=== PATIENT | female | born 1980 | race Caucasian/White ===

== ENCOUNTER 2016-11-13 23:30 | Inpatient (IN) | payer OTHER ==
--- NOTE | 2016-11-13 23:47 | ED PDOC ---
Arrival/HPI - General Time Seen by Provider: 11/13/16 23:38 Historian: Patient - History of Present Illness Narrative History of Present Illness (Text): 11/13/16 23:47 Fadumo Rausch is a 36 year old female, whose past medical history includes cholecystectomy and , who presents to the Emergency department complaining of epigastric pain for 1 hour. Patient notes associated nausea, vomiting, and headache Patient reports she had shrimp, fried rice, and chicken tenders earlier tonight. Patient denies any fever, chills, chest pain, shortness of breath, urinary symptoms, back pain, neck pain, dizziness, or any other complaints. Time/Duration: 1 hour Symptom Course: Unchanged Activities at Onset: Rest, Light Context: Home Past Medical History - Provider Review Nursing Documentation Reviewed: Yes - Infectious Disease Hx of Infectious Diseases: None - Cardiac Hx Hypertension: Yes - Pulmonary Hx Asthma: Yes - Neurological Hx Neurological Disorder: No - HEENT Hx HEENT Disorder: No - Renal Hx Renal Disorder: No - Endocrine/Metabolic Hx Endocrine Disorders: No - Hematological/Oncological Hx Blood Disorders: No - Integumentary Hx Dermatological Disorder: No - Musculoskeletal/Rheumatological Hx Falls: No - Gastrointestinal Hx Gastrointestinal Disorders: No - Genitourinary/Gynecological Hx Genitourinary Disorders: No - Psychiatric Hx Psychophysiologic Disorder: No Hx Anxiety: No Hx Bipolar Disorder: No Hx Depression: No Hx Emotional Abuse: No Hx Hallucinations: No Hx Panic Disorder: No Hx Post Traumatic Stress Disorder: No Hx Psychosis: No Hx Physical Abuse: No Hx Schizophrenia: No Hx Sexual Abuse: No Hx Substance Use: No - Surgical History Hx Section: Yes Hx Cholecystectomy: Yes - Anesthesia Hx Anesthesia: Yes Hx Anesthesia Reactions: No Hx Malignant Hyperthermia: No Family/Social History - Physician Review Nursing Documentation Reviewed: Yes Family/Social History: Unknown Family HX Smoking Status: Never Smoked Hx Alcohol Use: No Hx Substance Use: No Allergies/Home Meds Allergies/Adverse Reactions: Allergies iodine Allergy (Verified 11/13/16 23:47) ANAPHYLAXIS Home Medications: Home Meds Medication Instructions Recorded Confirmed Albuterol Sulfate [Proventil Hfa] 0.09 mg IH PRN PRN 05/18/15 11/13/16 Review of Systems - Physician Review All systems were reviewed & negative as marked: Yes - Review of Systems Constitutional: Normal. absent: Fevers Eyes: Normal ENT: Normal Respiratory: Normal. absent: SOB, Cough Cardiovascular: Normal. absent: Chest Pain Gastrointestinal: Abdominal Pain, Nausea, Vomiting Genitourinary Female: Normal. absent: Dysuria, Frequency, Hematuria, Urine Output Changes Musculoskeletal: Normal. absent: Back Pain, Neck Pain Skin: Normal Neurological: Headache. absent: Dizziness Endocrine: Normal Hemo/Lymphatic: Normal Psychiatric: Normal Physical Exam Vital Signs Reviewed: Yes Vital Signs Temp Pulse Resp BP Pulse Ox 11/14/16 04:44 73 18 117/72 98 11/14/16 03:00 84 16 119/67 98 11/14/16 01:30 71 16 127/70 98 11/13/16 23:30 99.3 F 80 20 134/82 99 Temperature: Afebrile Blood Pressure: Normal Pulse: Regular Respiratory Rate: Normal Appearance: Positive for: Well-Appearing, Non-Toxic, Comfortable Pain Distress: None Mental Status: Positive for: Alert and Oriented X 3 - Systems Exam Head: Present: Atraumatic, Normocephalic Pupils: Present: PERRL Extroacular Muscles: Present: EOMI Conjunctiva: Present: Normal Mouth: Present: Moist Mucous Membranes Neck: Present: Normal Range of Motion Respiratory/Chest: Present: Clear to Auscultation, Good Air Exchange. No: Respiratory Distress, Accessory Muscle Use Cardiovascular: Present: Regular Rate and Rhythm, Normal S1, S2. No: Murmurs Abdomen: Present: Tenderness (Epigastric tenderness), Normal Bowel Sounds. No: Distention, Peritoneal Signs Back: Present: Normal Inspection Upper Extremity: Present: Normal Inspection. No: Cyanosis, Edema Lower Extremity: Present: Normal Inspection. No: Edema Neurological: Present: GCS=15, CN II-XII Intact, Speech Normal Skin: Present: Warm, Dry, Normal Color. No: Rashes Psychiatric: Present: Alert, Oriented x 3, Normal Insight, Normal Concentration Medical Decision Making ED Course and Treatment: 11/13/16 23:47 Impression: 36 year old female complaining of epigastric pain, nausea, vomiting, and headache for 1 hour. Plan: -- Labs, lipase -- Urinalysis -- IV fluids -- Zofran -- Pepcid -- Toradol -- Reassess and disposition Prior Visits: Notes and results from previous visits were reviewed. On 07/03/2016, pt was seen in the Emergency department for fever, sore throat, and body aches. Pt was d/c home. Progress Notes: 11/14/16 05:03 Reviewed radiology, CT Abdomen and Pelvis shows: Possible right ovarian cyst. 11/14/16 05:13 Case discussed with biomedical equipment specialist, who is aware and agrees with plan. 11/14/16 05:[address] Sina Myers, who is aware and agrees with plan. Accepts pt in to hospitalist service. Pt will go to [facility] observation for intractable abdominal pain. - Lab Interpretations Lab Results: 11/13/16 23:50 11/13/16 23:50 Lab Results 11/13/16 23:50: WBC 7.0, RBC 5.13, Hgb 11.8 L, Hct 38.4, MCV 74.9 L, MCH 23.0 L , MCHC 30.7 L, RDW 16.8 H, Plt Count 122 11/13/16 23:50: Sodium 138, Potassium 3.8, Chloride 103, Carbon Dioxide 24, Anion Gap 15, BUN 13, Creatinine 0.7, Est GFR ( Amer) > 60, Est GFR (Non- Af Amer) > 60, Random Glucose 103, Calcium 8.5, Total Bilirubin 0.6, AST 22, ALT 21, Alkaline Phosphatase 64, Total Protein 6.8, Albumin 4.0, Globulin 2.9, Albumin/Globulin Ratio 1.4, Lipase 41 11/13/16 23:50: Urine Color Yellow, Urine Appearance Cloudy, Urine pH 6.0, Ur Specific [place] >= 1.030, Urine Protein 100 H, Urine Glucose (UA) Negative, Urine Ketones Negative, Urine Blood Trace-intact H, Urine Nitrate Negative, Urine Bilirubin Negative, Urine Urobilinogen 1.0 H, Ur Leukocyte Esterase Negative, Urine RBC 0 - 2, Urine WBC 0 - 2, Ur Epithelial Cells 6 - 8, Urine Bacteria Small, Urine HCG, Qual Negative I have reviewed the lab results: Yes - RAD Interpretation Narrative RAD Interpretations (Text): CT Abdomen and Pelvis shows: Cholecystectomy clips are present. The liver, spleen, and pancreas appear grossly normal on this non-contrast study. No perinephric stranding. No hydronephrosis. No obstructing calculi. Pelvic phleboliths are present. The bowel appears grossly normal. The appendix is not identified however there are no secondary signs of appendicitis such as pericecal stranding. Bilateral ovarian follicles with possible right ovarian cyst. Evaluation limited on this study. Ultrasound if clinically indicated. There is a small amount of free fluid in the pelvis. IMPRESSION: Possible right ovarian cyst. Radiology Orders: 11/14/16 03:51 ABD & PELVIS W/O PO OR IV CONT [CT] Stat Slackman: Radiologist - Medication Orders Current Medication Orders: Discontinued Medications Famotidine (Pepcid) 20 mg IVP STAT STA Stop: 11/13/16 23:49 Last Admin: 11/14/16 00:00 Dose: 20 mg Hydromorphone HCl (Dilaudid) 1 mg IVP STAT STA Stop: 11/14/16 03:52 Last Admin: 11/14/16 04:30 Dose: 1 mg Sodium Chloride (Sodium Chloride 0.9%) 1,000 mls @ 999 mls/hr IV .Q1H1M STA Stop: 11/14/16 00:48 Last Admin: 11/14/16 00:00 Dose: 999 mls/hr Ketorolac Tromethamine (Toradol) 30 mg IVP ONCE ONE Stop: 11/13/16 23:49 Last Admin: 11/14/16 00:00 Dose: 30 mg Morphine Sulfate (Morphine) 2 mg IVP STAT STA Stop: 11/14/16 02:14 Last Admin: 11/14/16 02:27 Dose: 2 mg Ondansetron HCl (Zofran Inj) 4 mg IVP ONCE ONE Stop: 11/13/16 23:49 Last Admin: 11/14/16 00:00 Dose: 4 mg Ondansetron HCl (Zofran Inj) 4 mg IVP ONCE ONE Stop: 11/14/16 03:52 Last Admin: 11/14/16 04:30 Dose: 4 mg - Scribe Statement The provider has reviewed the documentation as recorded by the Jaren Dean Provider Scribe Attestation: All medical record entries made by the N[place]tapan were at my direction and personally dictated by me. I have reviewed the chart and agree that the record accurately reflects my personal performance of the history, physical exam, medical decision making, and the department course for this patient. I have also personally directed, reviewed, and agree with the discharge instructions and disposition. Disposition/Present on Arrival - Present on Arrival Any Indicators Present on Arrival: No History of DVT/PE: No History of Uncontrolled Diabetes: No Urinary Catheter: No History Surgical Site Infection Following: None - Disposition Have Diagnosis and Disposition been Completed?: Yes Diagnosis: Intractable abdominal pain Disposition: HOSPITALIZED Disposition Time: 05:11 Patient Plan: Observation Patient Problems: Current Active Problems Problem Status Onset Intractable abdominal pain Acute Condition: STABLE
[2016-11-13] MEDS ORDERED: Sodium Chloride 0.9% 1,000 ML IV STA (23:48)
[2016-11-14 00:33] LABS: HEMOGLOBIN 11.8 gm/dL (12.0-16.0); MEAN CELL VOLUME 74.9 fL (80.0-105.0); MEAN CORPUSCULAR HGB CONC 30.7 g/dl (31.0-37.0); PLATELET COUNT 122 10^3/uL (120.0-450.0); RBC 5.13 10^6/uL (3.5-6.1); RED CELL DISTRIBUTION WIDTH 16.8 % (11.5-14.5)
[2016-11-14 00:35] LABS: URINE BILIRUBIN NEGATIVE (NEGATIVE); URINE BLOOD TRACE-INTACT (NEGATIVE); URINE GLUCOSE (UA) NEGATIVE (NEGATIVE); URINE LEUKOCYTE ESTERASE NEGATIVE Leu/uL (NEGATIVE); URINE NITRATE NEGATIVE (NEGATIVE); URINE PROTEIN 100 mg/dL (<30 mg/dL)
[2016-11-14 00:36] LABS: URINE APPEARANCE CLOUDY (CLEAR); URINE COLOR YELLOW (YELLOW)
[2016-11-14 00:39] LABS: ALB/GLOB RATIO 1.4 (1.1-1.8); ALT/SGPT 21 U/L (7-56); AST/SGOT 22 U/L (15-39); BLOOD UREA NITROGEN 13 mg/dL (7-21); CALCIUM 8.5 mg/dL (8.4-10.5); GFR AFRICAN-AMERICAN > 60; GFR NON-AFRICAN AMERICAN > 60; LIPASE 41 U/L (23-300)
[2016-11-14 00:41] LABS: HCG,QUALITATIVE URINE NEGATIVE (NEGATIVE)
[2016-11-14 00:44] LABS: URINE BACTERIA SMALL (NEG); URINE RBC 0 - 2 /hpf (0-2); URINE WBC 0 - 2 /hpf (0-6)
[2016-11-14] MEDS ORDERED: Morphine 2 mg/ml ISec IVP STA (02:13)
[2016-11-14] MEDS ORDERED: HYDROmorphone 1 mg/ml ISec IVP STA (03:51)
--- NOTE | 2016-11-14 05:01 | CT ---
EXAM: CT Abdomen and Pelvis Without Intravenous Contrast CLINICAL HISTORY: 36 years old, female; Pain; Abdominal pain; Localized; Upper; Prior surgery; Additional info: Mid/upper abdominal pain TECHNIQUE: Axial computed tomography images of the abdomen and pelvis without intravenous contrast. This CT exam was performed using one or more of the following dose reduction techniques: automated exposure control, adjustment of the mA and/or kV according to patient size, and/or use of iterative reconstruction technique. Coronal and sagittal reformatted images were created and reviewed. EXAM DATE/TIME: 11/14/2016 3:51 AM COMPARISON: No relevant prior studies available. FINDINGS: Cholecystectomy clips are present. The liver, spleen, and pancreas appear grossly normal on this non-contrast study. No perinephric stranding. No hydronephrosis. No obstructing calculi. Pelvic phleboliths are present. The bowel appears grossly normal. The appendix is not identified however there are no secondary signs of appendicitis such as pericecal stranding. Bilateral ovarian follicles with possible right ovarian cyst. Evaluation limited on this study. Ultrasound if clinically indicated. There is a small amount of free fluid in the pelvis. IMPRESSION: Possible right ovarian cyst.
[2016-11-14] MEDS ORDERED: Albuterol-Ipratrop 3 mg / 0.5 (3 ml) UD IH PRN (05:59)
--- NOTE | 2016-11-14 06:21 | CP.PCM.HP ---
History of Present Illness - History of Present Illness History of Present Illness: Pt is a 36 yo F with a PMHx of asthma, HTN, HLD, and fibroids presents with cc of nausea, vomiting, and abdominal pain. Pt states that one day ago she got sunburned and has felt dehydrated since then. Pt then states around 9:30 pm on Monday pt had nausea and vomited multiple times. Pt also reports epigastric abdominal pain. Pt's last meal was [employer] food around 11:30 am on the same day as she has had no appetite and has not been able to keep anything down. Pt states that the nausea, abdominal pain, and chills have been constant since onset. Pt tried motrin but it provided no relief. Pt denies any aggravating factors. Pt also reports ARELLANO. Pt denies CP, SOB, and fevers. PMHx: asthma, HTN, HLD, fibroids/cysts Surg: cholecystectomy, FHx: DM, HTN, HLD, breast, ovarian, and colon cancer All: Iodine SH: denies tob, EtOH, or illicit drug use Medications: reviewed and as per chart Present on Admission - Present on Admission Any Indicators Present on Admission: No Review of Systems - Constitutional Constitutional: Chills, Fatigue, Headache, Weakness. absent: Night Sweats, Weight Gain, Weight Loss - EENT Eyes: absent: Blurred Vision, Change in Vision, Dry Eye, Pain Ears: absent: Ear Discharge, Ear Pain, Tinnitus Nose/Mouth/Throat: absent: Nasal Congestion, Nasal Discharge, Nasal Trauma - Cardiovascular Cardiovascular: absent: Chest Pain, Diaphoresis, Dyspnea, Edema, Leg Edema, Orthopnea - Respiratory Respiratory: absent: Cough, Dyspnea, Hemoptysis, Wheezing - Gastrointestinal Gastrointestinal: Abdominal Pain, Vomiting. absent: Constipation, Diarrhea, Hematemesis, Hematochezia - Genitourinary Genitourinary: absent: Dysuria, Hematuria, Pyuria, Nocturia - Musculoskeletal Musculoskeletal: absent: Abnormal Gait, Arthralgias, Atrophy, Joint Swelling - Integumentary Integumentary: absent: Pruritus, Rash, Skin Ulcer, Sores, Swelling - Neurological Neurological: Headaches. absent: Abnormal Gait, Abnormal Hearing, Numbness - Endocrine Endocrine: absent: Cold Intolorance, Heat Intolorance, Polydipsia, Polyphagia Past Patient History - Infectious Disease Hx of Infectious Diseases: None - Past Social History Smoking Status: Never Smoked - CARDIAC Hx Hypertension: Yes - PULMONARY Hx Asthma: Yes - NEUROLOGICAL Hx Neurological Disorder: No - HEENT Hx HEENT Problems: No - RENAL Hx Chronic Kidney Disease: No - ENDOCRINE/METABOLIC Hx Endocrine Disorders: No - HEMATOLOGICAL/ONCOLOGICAL Hx Blood Disorders: No - INTEGUMENTARY Hx Dermatological Problems: No - MUSCULOSKELETAL/RHEUMATOLOGICAL Hx Falls: No - GASTROINTESTINAL Hx Gastrointestinal Disorders: No - GENITOURINARY/GYNECOLOGICAL Hx Genitourinary Disorders: No - PSYCHIATRIC Hx Psychophysiologic Disorder: No Hx Anxiety: No Hx Bipolar Disorder: No Hx Depression: No Hx Emotional Abuse: No Hx Hallucinations: No Hx Panic Symptoms: No Hx Post Traumatic Stress Disorder: No Hx Psychosis: No Hx Physical Abuse: No Hx Schizophrenia: No Hx Sexual Abuse: No Hx Substance Use: No - SURGICAL HISTORY Hx Section: Yes Hx Cholecystectomy: Yes - ANESTHESIA Hx Anesthesia: Yes Hx Anesthesia Reactions: No Hx Malignant Hyperthermia: No Meds Allergies/Adverse Reactions: Allergies Allergy/AdvReac Type Severity Reaction Status Date / Time iodine Allergy ANAPHYLAXIS Verified 11/13/16 23:47 Physical Exam - Constitutional Appears: No Acute Distress - Head Exam Head Exam: ATRAUMATIC, NORMOCEPHALIC - Eye Exam Eye Exam: EOMI, PERRL. absent: Conjunctival injection - ENT Exam ENT Exam: Mucous Membranes Dry - Neck Exam Neck exam: Positive for: Full Rom. Negative for: Lymphadenopathy, Tenderness, Thyromegaly - Respiratory Exam Respiratory Exam: Clear to Auscultation Bilateral. absent: Rales, Rhonchi, Wheezes - Cardiovascular Exam Cardiovascular Exam: RRR, +S1, +S2. absent: Diastolic murmur, Gallop, Rubs, Systolic Murmur - GI/Abdominal Exam GI & Abdominal Exam: Guarding, Hyperactive Bowel Sounds, Soft. absent: Distended, Tenderness - Extremities Exam Extremities exam: Positive for: full ROM. Negative for: joint swelling, pedal edema, tenderness - Neurological Exam Neurological exam: Alert, CN II-XII Intact, Oriented x3 - Psychiatric Exam Psychiatric exam: Normal Affect - Skin Skin Exam: Dry, Intact, Normal Color, Warm Results - Vital Signs Recent Vital Signs: Last Vital Signs Temp 99.3 F 11/13/16 23:30 Pulse 73 11/14/16 05:58 Resp 16 11/14/16 05:58 BP 105/50 L 11/14/16 05:58 Pulse Ox 98 11/14/16 05:58 - Labs Result Diagrams: 11/13/16 23:50 11/13/16 23:50 Assessment & Plan - Assessment and Plan (Free Text) Assessment: 36 yo F with a PMHx of ashtma, HTN, HLD, and fibroids will be admitted for evaluation and treatment of gastroenteritis. 1. Gastroenteritis -IVF NS -CT Exam showed no perinephric stranding, cholecystectomy clips, pelvic phleboliths, bilateral ovarian follicles, possible right ovarin cyst, small amount of free fluid in pelvix -Zofran 4q6 prn nausea -Morphine for pain -NPO, increase diet as gadiel -Trend daily labs 2. Asthma -Duoneb q2h prn 3. GI/PPx -Protonix -SCDs Pt was seen and discussed in detail with Dr. Myers.
[2016-11-14] MEDS: Sodium Chloride 0.9% 100 ML IV SCH ×2 (06:40→13:04)
[2016-11-14 07:02] VITALS: BMI 38.9
[2016-11-14] MEDS ORDERED: Pneumococcal 23-Valent Vaccine IM ONE (07:02)
[2016-11-14] MEDS: Morphine 2 mg/ml ISec IVP PRN (07:54)
[2016-11-14] MEDS: Oxycodone/Acetaminophen 5/325 mg Tab PO PRN ×2 (17:57→21:51)
[2016-11-15] MEDS: Sodium Chloride 0.9% 100 ML IV SCH ×4 (02:49→19:00)
[2016-11-15] MEDS: Oxycodone/Acetaminophen 5/325 mg Tab PO PRN ×3 (02:51→15:35)
[2016-11-15 07:15] LABS: HEMOGLOBIN 9.9 gm/dL (12.0-16.0); MEAN CELL VOLUME 75.7 fL (80.0-105.0); MEAN CORPUSCULAR HEMOGLOBIN 22.3 pg (25.0-35.0); MEAN CORPUSCULAR HGB CONC 29.5 g/dl (31.0-37.0); RBC 4.44 10^6/uL (3.5-6.1); WHITE BLOOD COUNT 3.1 10^3/ul (4.5-11.0)
[2016-11-15 07:24] LABS: ALB/GLOB RATIO 1.3 (1.1-1.8); ALBUMIN 3.1 g/dL (3.0-4.8); ALT/SGPT 40 U/L (7-56); AST/SGOT 27 U/L (15-39); BLOOD UREA NITROGEN 6 mg/dL (7-21); GFR AFRICAN-AMERICAN > 60; GFR NON-AFRICAN AMERICAN > 60
--- NOTE | 2016-11-15 09:46 | CON ---
DATE: 11/15/2016 HISTORY OF PRESENT ILLNESS: I saw Ms. Rausch this morning. She is a 36-year-old female with past medical history of cholecystectomy and with complaints of acute onset epigastric pain that several prior to admission. She related onset of symptoms several hours after eating meal consisting of shrimp, rice and chicken. Currently no one else affected after eating the same meal. Earlier in the day and previously, the patient had no complaints. She denied any hematemesis or rectal bleeding. The patient has had problem with acid reflux periodically and also periodic epigastric discomfort. She does not practice antireflux precautions. She eats and drinks before she goes to sleep. At the current time point at the bedside, the patient complained about epigastric discomfort, also pain in the periumbilical area, as well as in all quadrants bilaterally, which is mild. PHYSICAL EXAMINATION: VITAL SIGNS: I reviewed this patient's vital signs. HEENT: Noncontributory. LUNGS: Clear to auscultation. HEART: Regular rate and rhythm. ABDOMEN: Significant for being tender in the epigastric area. Mild tenderness towards periumbilical as well as in the area of the right and left lower quadrants. LABORATORY DATA: I reviewed this patient's laboratory data, which includes H and H of 11.8/38. Chemistry is noncontributory. During the negative. Abdomen and pelvis CT images were reviewed as well as report, note that it appeared noncontributory as well as biliary tract, there is a small amount of food in the pelvis and cul-de-sac. ASSESSMENT AND PLAN: This is a 36-year-old female with complaints of epigastric pain as well as periumbilical and lower quadrant discomfort. I think based on the acute onset of her symptoms, most likely some degree of gastroenteritis lower quadrant discomfort could be attributed to fluid in the cul-de-sac. I note that she just had her period several days before admission. Review of the orders indicated analgesics plus proton inhibitor therapy and antiemetics which is adequate at the current time point.
[2016-11-15] MEDS: Morphine 2 mg/ml ISec IVP PRN ×3 (11:57→22:59)
[2016-11-15 16:34] LABS: HEPATITIS B SURFACE AG NEGATIVE (NEGATIVE)
[2016-11-15 16:39] LABS: HEPATITIS A IGM NEGATIVE (NEGATIVE); HEPATITIS B CORE AB NEGATIVE (NEGATIVE)
[2016-11-15 16:51] LABS: HEPATITIS C ANTIBODY NEGATIVE (NEGATIVE)
--- NOTE | 2016-11-15 19:43 | CP.PCM.PN ---
<FAVIOLA NOWAK - Last Filed: 11/15/16 19:34> Subjective - Date & Time of Evaluation Date of Evaluation: 11/15/16 Time of Evaluation: 09:45 - Subjective Subjective: Medicine Progress Note: Pt seen and assessed at bedside. Pt reports that her nausea and epigastric pain have lessened in intensity with medication therapy but notes that these issues are not resolved. She has no other complaints at this time. Pt denies headache, fever, changes in vision, dizziness, shortness of breath, chest pain, palpitations, dysphagia, vomiting, constipation, diarrhea or any numbness/ tingling/weakness of any extremity. Objective - Vital Signs/Intake and Output Vital Signs (last 24 hours): Temp Pulse Resp BP Pulse Ox 98.6 F 78 18 125/68 98 11/15/16 16:00 11/15/16 16:00 11/15/16 16:00 11/15/16 16:00 11/15/16 16:00 Intake and Output: 11/15/16 11/16/16 18:59 06:59 Intake Total 120 Balance 120 - Medications Medications: Current Medications Acetaminophen (Tylenol 325mg Tab) 650 mg PO Q4H PRN PRN Reason: Pain, severe (8-10) Last Admin: 11/14/16 15:59 Dose: 650 mg Famotidine (Pepcid) 20 mg IVP BID [facility] Last Admin: 11/15/16 18:00 Dose: 20 mg Sodium Chloride (Sodium Chloride 0.9%) 100 mls @ 100 mls/hr IV .Q1H [facility] Last Admin: 11/15/16 19:00 Dose: 100 mls/hr Morphine Sulfate (Morphine) 2 mg IVP Q4 PRN PRN Reason: Pain, moderate (4-7) Last Admin: 11/15/16 18:15 Dose: 2 mg Ondansetron HCl (Zofran Inj) 4 mg IVP Q6H PRN PRN Reason: Nausea/Vomiting Last Admin: 11/15/16 15:46 Dose: 4 mg Oxycodone/Acetaminophen (Percocet 5/325 Mg Tab) 1 tab PO Q4H PRN PRN Reason: Pain, severe (8-10) Stop: 11/17/16 17:38 Last Admin: 11/15/16 15:35 Dose: 1 tab - Labs Labs: 11/15/16 07:00 11/15/16 07:00 - Constitutional Appears: No Acute Distress - Head Exam Head Exam: NORMAL INSPECTION, NORMOCEPHALIC - Eye Exam Eye Exam: EOMI, Normal appearance - ENT Exam ENT Exam: Mucous Membranes Moist, Normal Exam - Neck Exam Neck Exam: Full ROM - Respiratory Exam Respiratory Exam: Clear to Ausculation Bilateral, NORMAL BREATHING PATTERN. absent: Rales, Rhonchi, Wheezes, Respiratory Distress - Cardiovascular Exam Cardiovascular Exam: REGULAR RHYTHM, RRR, +S1, +S2 - GI/Abdominal Exam GI & Abdominal Exam: Soft, Tenderness, Hypoactive Bowel Sounds. absent: Distended, Firm, Guarding, Hernia, Organomegaly, Pulsatile Mass, Rebound - Extremities Exam Extremities Exam: absent: Calf Tenderness, Pedal Edema - Neurological Exam Neurological Exam: Alert, Awake, Normal Gait, Oriented x3 - Psychiatric Exam Psychiatric exam: Normal Affect, Normal Mood - Skin Skin Exam: Dry, Intact, Normal Color, Warm Assessment and Plan - Assessment and Plan (Free Text) Assessment: Mrs. Rausch is 36 year old female with a past medical history significant for asthma and previous gastric ulcer who presents with epigastric pain and nausea/ vomiting. Plan: 1. Gastroenteritis - CT Exam showed no perinephric stranding, cholecystectomy clips, pelvic phleboliths, bilateral ovarian follicles, possible right ovarin cyst, small amount of free fluid in pelvix -GI following, all recs appreciated -patient scheduled for upper endoscopy for 11/16 -Zofran 4q6 prn -Percocet 5/325mg for pain -NPO, advance diet as tolerated after EGD -hepatitis panel negative -Daily CMP's 2. GI/DVT Prophylaxis -Pepcid/SCD's Pt was seen and discussed in detail with Dr. Myers. <Skip De Luna - Last Filed: 11/19/16 11:09> Objective - Vital Signs/Intake and Output Vital Signs (last 24 hours): Temp Pulse Resp BP Pulse Ox 98.3 F 52 L 16 117/67 100 11/17/16 16:54 11/17/16 16:54 11/17/16 16:54 11/17/16 16:54 11/17/16 16:54 - Labs Labs: 11/17/16 06:30 11/17/16 06:30 PT 11.1 Seconds (9.9-11.8) 11/16/16 07:00 INR 1.03 (0.93-1.08) 11/16/16 07:00 APTT 23.8 Seconds (23.7-30.8) 11/16/16 07:00 Attending/Attestation - Attestation I have personally seen and examined this patient.: Yes I have fully participated in the care of the patient.: Yes I have reviewed all pertinent clinical information, including history, physical exam and plan: Yes Notes (Text): 11/19/16 11:08 attending note; Patient seen and examined with resident. Patient is a 36-year-old female admitted with severe epigastric tenderness and persistent nausea and vomiting. Patient is not tolerating diet. Case discussed with Dr. Ventura in detail. Plan for EGD in a.m.. Patient with a history of gastric ulcer in the past. The diagnosis and plan discussed with her in detail.
[2016-11-16] MEDS: Morphine 2 mg/ml ISec IVP PRN ×3 (03:10→20:39)
[2016-11-16 04:29] LABS: BARBITURATES, UR NEGATIVE (NEGATIVE); BENZODIAZEPINES, UR NEGATIVE (NEGATIVE); OPIATES, UR POSITIVE (NEGATIVE); PHENCYCLIDINE, UR NEGATIVE (NEGATIVE)
[2016-11-16] MEDS ORDERED: Sodium Chloride 0.9% 1,000 ML IV SCH ×2 (05:47→08:45)
[2016-11-16 07:35] LABS: INR 1.03 (0.93-1.08); PARTIAL THROMBOPLASTIN TIME 23.8 Seconds (23.7-30.8); PROTHROMBIN TIME 11.1 Seconds (9.9-11.8)
[2016-11-16 07:42] LABS: ALB/GLOB RATIO 1.5 (1.1-1.8); ALBUMIN 3.2 g/dL (3.0-4.8); ALT/SGPT 113 U/L (7-56); AST/SGOT 99 U/L (15-39); BLOOD UREA NITROGEN 3 mg/dL (7-21); CALCIUM 8.1 mg/dL (8.4-10.5); GFR AFRICAN-AMERICAN > 60; GFR NON-AFRICAN AMERICAN > 60
[2016-11-16] MEDS ORDERED: Albuterol HFA 90 mcg/actuation (8 g) ONE (07:59)
[2016-11-16] MEDS ORDERED: Lidocaine 1% Inj (20ml) ONE (08:06)
[2016-11-16] MEDS ORDERED: Propofol 10 mg/ml Inj (20 ML) ONE (08:07)
[2016-11-16 11:08] LABS: BASO # 0.01 K/mm3 (0.0-2.0); BASO % 0.3 % (0.0-3.0); EOS # 0.1 (0.0-0.7); EOS % 1.5 % (1.5-5.0); GRAN # 1.83 (1.4-6.5); GRAN % 46.8 % (50.0-68.0); HEMOGLOBIN 9.7 gm/dL (12.0-16.0); LYMPH # 1.7 (1.2-3.4); LYMPH % 43.5 % (22.0-35.0); MEAN CELL VOLUME 74.9 fL (80.0-105.0); MEAN CORPUSCULAR HEMOGLOBIN 22.6 pg (25.0-35.0); MEAN CORPUSCULAR HGB CONC 30.1 g/dl (31.0-37.0); MONO # 0.3 (0.1-0.6); MONO % 7.9 % (1.0-6.0); PLATELET COUNT 107 10^3/uL (120.0-450.0); RED CELL DISTRIBUTION WIDTH 16.7 % (11.5-14.5); WHITE BLOOD COUNT 3.9 10^3/ul (4.5-11.0)
[2016-11-16] MEDS: Pantoprazole 40 mg EC Tab PO SCH ×2 (12:05→17:55)
--- NOTE | 2016-11-16 12:27 | CARD ---
APPROVED REPORT EKG Measurement Heart [id number] <Conclusion> Normal sinus rhythm Normal ECG
[2016-11-16] MEDS: Sucralfate 1 gm/10 ml Oral Susp UD PO SCH ×3 (15:03→22:00)
--- NOTE | 2016-11-16 15:16 | CT ---
PROCEDURE: CT Chest without contrast HISTORY: chest pain COMPARISON: None. TECHNIQUE: Contiguous axial images were obtained through the chest without intravenous contrast enhancement. Sagittal and coronal reconstructions were performed. Radiation dose (DLP): 752 mGy-cm. This CT exam was performed using one or more of the following dose reduction techniques: Automated exposure control, adjustment of the mA and/or kV according to patient size, and/or use of iterative reconstruction technique. FINDINGS: LUNGS: Clear lungs. Visualized airway clear. MEDIASTINUM: Unremarkable thoracic aorta. No aneurysm. Normal sized heart. Main pulmonary artery unremarkable. No vascular congestion. No lymphadenopathy. PLEURA: No pleural fluid. No pneumothorax. BONES: No fracture. No destructive lesion. UPPER ABDOMEN: Grossly unremarkable. OTHER FINDINGS: None. IMPRESSION: Unremarkable non-contrast enhanced CT of the chest.
[2016-11-16] MEDS: Oxycodone/Acetaminophen 5/325 mg Tab PO PRN (17:56)
--- NOTE | 2016-11-16 18:34 | CP.PCM.PN ---
Subjective - Date & Time of Evaluation Date of Evaluation: 11/16/16 Time of Evaluation: 10:30 - Subjective Subjective: Medicine Progress Note: Pt seen and assessed at bedside. Pt reports an "irritation in my sunburn" on her face. She also states that she continues to have pain whenever she takes a deep breath and also states that she feels "puffy and swollen" in her extremities. Pt denies headache, fever, changes in vision, dizziness, shortness of breath, chest pain, palpitations, dysphagia, vomiting, constipation, diarrhea or any numbness/tingling/weakness of any extremity. Objective - Vital Signs/Intake and Output Vital Signs (last 24 hours): Temp Pulse Resp BP Pulse Ox 98.9 F 64 18 139/66 98 11/16/16 16:38 11/16/16 16:38 11/16/16 16:38 11/16/16 16:38 11/16/16 16:38 Intake and Output: 11/16/16 11/16/16 06:59 18:59 Intake Total 0 2400 Balance 0 2400 - Medications Medications: Current Medications Acetaminophen (Tylenol 325mg Tab) 650 mg PO Q4H PRN PRN Reason: Pain, severe (8-10) Last Admin: 11/14/16 15:59 Dose: 650 mg Famotidine (Pepcid) 20 mg IVP BID [facility] Last Admin: 11/16/16 17:57 Dose: 20 mg Sodium Chloride (Sodium Chloride 0.9%) 1,000 mls @ 100 mls/hr IV .Q10H ERIC Sodium Chloride (Sodium Chloride 0.9%) 1,000 mls @ 100 mls/hr IV .Q10H ERIC Morphine Sulfate (Morphine) 2 mg IVP Q4 PRN PRN Reason: Pain, moderate (4-7) Last Admin: 11/16/16 09:50 Dose: 2 mg Ondansetron HCl (Zofran Inj) 4 mg IVP Q6H PRN PRN Reason: Nausea/Vomiting Last Admin: 11/16/16 12:05 Dose: 4 mg Oxycodone/Acetaminophen (Percocet 5/325 Mg Tab) 1 tab PO Q4H PRN PRN Reason: Pain, severe (8-10) Stop: 11/17/16 17:38 Last Admin: 11/16/16 17:56 Dose: 1 tab Pantoprazole Sodium (Protonix Ec Tab) 40 mg PO BID [facility] Last Admin: 11/16/16 17:55 Dose: 40 mg Sucralfate (Carafate Oral Susp) 1 gm PO QID [facility] Last Admin: 11/16/16 17:55 Dose: 1 gm - Labs Labs: 11/16/16 10:50 11/16/16 07:00 PT 11.1 Seconds (9.9-11.8) 11/16/16 07:00 INR 1.03 (0.93-1.08) 11/16/16 07:00 APTT 23.8 Seconds (23.7-30.8) 11/16/16 07:00 - Constitutional Appears: No Acute Distress - Head Exam Head Exam: NORMAL INSPECTION - Eye Exam Eye Exam: EOMI, Normal appearance - ENT Exam ENT Exam: Mucous Membranes Moist, Normal Exam - Neck Exam Neck Exam: Full ROM - Respiratory Exam Respiratory Exam: Clear to Ausculation Bilateral, NORMAL BREATHING PATTERN. absent: Rales, Rhonchi, Wheezes, Respiratory Distress - Cardiovascular Exam Cardiovascular Exam: REGULAR RHYTHM, RRR, +S1, +S2. absent: Murmur - GI/Abdominal Exam GI & Abdominal Exam: Tenderness, Diminished Bowel Sounds Additional comments: epigastric tenderness to palpation - Extremities Exam Extremities Exam: absent: Calf Tenderness, Pedal Edema - Neurological Exam Neurological Exam: Alert, Awake, Normal Gait, Oriented x3 - Psychiatric Exam Psychiatric exam: Normal Affect, Normal Mood - Skin Skin Exam: Dry, Intact, Rash, Warm - Additional Findings Additional findings: erythema in a malar distribution across face Assessment and Plan - Assessment and Plan (Free Text) Assessment: Mrs. Rausch is 36 year old female with a past medical history significant for asthma and previous gastric ulcer who presents with epigastric pain and nausea/ vomiting. Plan: 1. Gastroenteritis - CT Exam showed no perinephric stranding, cholecystectomy clips, pelvic phleboliths, bilateral ovarian follicles, possible right ovarin cyst, small amount of free fluid in pelvix -GI following, all recs appreciated -upper endoscopy was performed and showed antral gastritis; recommended continued PPI/H2 Joe medical therapy -will await results of biopsies taken during EGD -continue pepcid and protonix -Zofran 4q6 prn for N/V -Percocet 5/325mg for pain -patient tolerating clear liquid diet, will advance as tolerated -hepatitis panel negative -Daily CMP's 2. Facial Rash -patient believes this is sunburn -SERENA, dsDNA sent to r/o SLE -patient denied SLE criteria symptoms upon questioning 3. Dyspnea -CT chest w/out contrast ordered 4. GI/DVT Prophylaxis -Pepcid/SCD's Patient was seen and case discussed in detail with attending, Dr. Brasher.
--- NOTE | 2016-11-16 18:49 | PN ---
DATE: 11/16/2016 SUBJECTIVE: I saw Ms. Rausch this morning. She is a 36-year-old female with complaints of nausea, vomiting, chest pain, and epigastric pain for several hours prior to admission. The patient has history of gastric ulcers, recent endoscopy was roughly 2 years ago. The patient indicates she made some slight progress since seen, able to handle small volume of clear liquids yesterday. Still exhibiting epigastric as well as retrosternal chest discomfort despite EKG negative. I reviewed the case with Dr. De Luna yesterday. I reviewed this patient's vital signs and examined the patient. She is still exhibiting a significant degree of epigastric discomfort. LABORATORY DATA: Pending for this morning. ASSESSMENT: This is a 36-year-old female admitted with severe epigastric retrosternal chest pain, scheduled for endoscopy *------* this morning at 8 o'clock. The patient has been on proton pump inhibitor therapy with some improvement. I reviewed the risk, benefits and alternatives of the procedure including risk of the hemorrhage, perforation and surgery associated with the endoscopy procedure. The patient understood the discussion and agreed to have the procedure performed and signed a consent earlier this morning. Reinier Barnes DO
[2016-11-17] MEDS ORDERED: Pantoprazole 40 mg EC Tab PO SCH (01:20)
[2016-11-17] MEDS: Oxycodone/Acetaminophen 5/325 mg Tab PO PRN ×2 (05:48→14:07)
[2016-11-17 07:39] LABS: ALB/GLOB RATIO 1.4 (1.1-1.8); ALBUMIN 3.3 g/dL (3.0-4.8); ALT/SGPT 88 U/L (7-56); AST/SGOT 43 U/L (15-39); BLOOD UREA NITROGEN 5 mg/dL (7-21); CALCIUM 8.5 mg/dL (8.4-10.5); GFR AFRICAN-AMERICAN > 60; GFR NON-AFRICAN AMERICAN > 60
[2016-11-17 07:51] LABS: HEMOGLOBIN 10.2 gm/dL (12.0-16.0); MEAN CELL VOLUME 74.4 fL (80.0-105.0); MEAN CORPUSCULAR HEMOGLOBIN 23.1 pg (25.0-35.0); PLATELET COUNT 121 10^3/uL (120.0-450.0); RBC 4.42 10^6/uL (3.5-6.1); RED CELL DISTRIBUTION WIDTH 17.3 % (11.5-14.5); WHITE BLOOD COUNT 3.9 10^3/ul (4.5-11.0)
[2016-11-17] MEDS: Morphine 2 mg/ml ISec IVP PRN (08:17)
[2016-11-17] MEDS: Sucralfate 1 gm/10 ml Oral Susp UD PO SCH ×2 (10:22→13:26)
--- NOTE | 2016-11-17 11:40 | PN ---
DATE: 11/17/2016 SUBJECTIVE: I saw the patient this morning. She is a 36-year-old female here with complaints of nausea, vomiting, retrosternal pain, epigastric pain, inability to handle any type of food. The patient underwent an upper endoscopy yesterday, which was significant for laryngopharyngeal reflux and some antral gastritis. Biopsies were taken; results are not available as well. The patient overall feels improved relative to the day of admission on the current regimen *------* temporarily, the patient continue on possibly b.i.d. Protonix. We may add a Pepcid 20 or 40 after her evening meal. Note that the patient must adhere to antireflux precautions. PHYSICAL EXAMINATION VITAL SIGNS: I reviewed this patient's vital signs. HEENT: Noncontributory. LUNGS: Clear to auscultation. HEART: Regular rhythm. ABDOMEN: spray machine tender in the epigastric area and left upper quadrant. Right upper quadrant noncontributory as well as periumbilical. LABORATORY DATA: Laboratory data is pending for today. OVERALL ASSESSMENT: This is a 36-year-old female with nausea, vomiting, severe abdominal pain, inability to eat, somewhat improved on current therapeutic regimen. Made the orders, which consisted of Carafate suspension which was started yesterday. Note that the Carafate suspension should be taken as follows; always 30 minutes after meals and at bedtime. After the use of the Carafate, want her to avoid eating and drinking for at least an hour, after the dose. The Carafate suspension should be continued on a p.r.n. basis for 2 weeks at a time by a rk period of roughly 1 week, then it can be restarted. On the outpatient side, if this patient is discharged, she should be on at least either once or twice a day PPI therapy, and I can include a Carafate suspension. The patient is currently handling liquids, consider advancing diet later on today, and possibly discharge as per house staff. Reinier Barnes DO
[2016-11-17 16:54] VITALS: BP 117/67; PULSE 52; RESP 16; TEMP 98.3; O2SAT 100
== END 2016-11-17 18:45 | disposition home or self-care (01) | DRG 814 ==
LOC: ED 23:30 → ERH 11-14 05:11 → 5RSO 11-14 06:32 → OBSVTOIN 11-15 11:25
PROVIDERS: ADMIT Internal Medicine; ATTEND Internal Medicine
DX: K52.9 Noninfective gastroenteritis and colitis, unspecified (principal); I10 Essential (primary) hypertension; J45.909 Unspecified asthma, uncomplicated; K21.9 Gastro-esophageal reflux disease without esophagitis; K29.60 Other gastritis without bleeding; R21 Rash and other nonspecific skin eruption; R06.00 Dyspnea, unspecified

== ENCOUNTER 2016-12-22 17:23 | Emergency (ER) | payer OTHER ==
[2016-12-22 17:24] VITALS: BMI 38.9
[2016-12-22 17:46] VITALS: TEMP 98.2
[2016-12-22] MEDS ORDERED: Morphine 4 mg/ml ISec IVP STA ×2 (17:55→20:34)
[2016-12-22] MEDS ORDERED: Sodium Chloride 0.9% 1,000 ML IV STA (17:55)
--- NOTE | 2016-12-22 17:59 | ED PDOC ---
Arrival/HPI - General Chief Complaint: Female Genitourinary Time Seen by Provider: 12/22/16 17:46 Historian: Patient - History of Present Illness Narrative History of Present Illness (Text): 12/22/16 17:46 Fadumo Rausch is a 36 year old female, whose past medical history includes asthma, acid reflux, and fibroid cysts, who presents to the emergency department complaining of heavy bleeding associated with abdominal pain, headaches, and leg pains since last night. Patient notes that her menstrual cycle began yesterday as well. Patient states that she has used about 8 pads already. Patient denies any fevers or any other complaints. Time/Duration: Other (Last night) Symptom Onset: Gradual Symptom Course: Unchanged Activities at Onset: Rest Context: Home Past Medical History - Provider Review Nursing Documentation Reviewed: Yes - Infectious Disease Hx of Infectious Diseases: None - Cardiac Hx Pacemaker: No - Pulmonary Hx Asthma: Yes - Neurological Hx Neurological Disorder: No - HEENT Hx HEENT Disorder: No - Renal Hx Renal Disorder: No - Endocrine/Metabolic Hx Endocrine Disorders: No - Hematological/Oncological Hx Blood Transfusions: No - Integumentary Hx Dermatological Disorder: No - Musculoskeletal/Rheumatological Hx Musculoskeletal Disorders: No - Gastrointestinal Hx Gastrointestinal Disorders: No Hx Gastroesophageal Reflux: Yes - Genitourinary/Gynecological Hx Genitourinary Disorders: No Other/Comment: Fibroids - Psychiatric Hx Emotional Abuse: No Hx Physical Abuse: No Hx Substance Use: No - Surgical History Hx Section: Yes (x2) Hx Cholecystectomy: Yes - Anesthesia Hx Anesthesia Reactions: No Hx Malignant Hyperthermia: No - Suicidal Assessment Feels Threatened In Home Enviroment: No Family/Social History - Physician Review Nursing Documentation Reviewed: Yes Family/Social History: No Known Family HX Smoking Status: Never Smoked Hx Alcohol Use: No Hx Substance Use: No Allergies/Home Meds Allergies/Adverse Reactions: Allergies iodine Allergy (Verified 12/22/16 17:46) ANAPHYLAXIS Review of Systems - Review of Systems Constitutional: absent: Fevers, Night Sweats Eyes: absent: Vision Changes ENT: absent: Hearing Changes Respiratory: absent: SOB, Cough Cardiovascular: absent: Chest Pain Genitourinary Female: Other (heavy bleeding) Musculoskeletal: Other (leg pains) Neurological: Headache Endocrine: absent: Diaphoresis Hemo/Lymphatic: absent: Adenopathy Physical Exam Vital Signs Reviewed: Yes Vital Signs Temp Pulse Resp BP Pulse Ox 12/22/16 23:01 63 16 147/82 98 12/22/16 20:27 64 16 150/78 100 12/22/16 18:22 63 18 150/89 99 12/22/16 17:43 98.2 F 62 18 153/95 H 98 Temperature: Afebrile Blood Pressure: Hypertensive Pulse: Regular Respiratory Rate: Normal Appearance: Positive for: Well-Appearing, Non-Toxic, Comfortable Pain Distress: None Mental Status: Positive for: Alert and Oriented X 3 - Systems Exam Abdomen: Present: Tenderness (Lower abdominal tenderness) Genitourinary/Pelvic Exam: Present: Other (Moderate bleeding; Pelvic Exam chaperoned by Jaren Gardner) Medical Decision Making ED Course and Treatment: 12/22/16 18:01 Impression: 36 year old female complaining of heavy bleeding with associated abdominal pain , headache, and leg pains since last night. Differential Diagnosis included but are not limited to: Plan: -- Transvaginal US -- Urinalysis -- Labs -- Morphine and IV fluids -- Reassess and disposition Prior Visits: Notes and results from previous visits were reviewed. Patient last seen in the ED on 11/13/16 for epigastric pain for one day. Patient was admitted to hospitalist care for further evaluation. Progress Notes: 12/24/16 12:05 h/h stable. us shows small cyst, no e/o of torsion. ct neg for acute pathology. jaime nimproved. not tachycardic, small -moderate vb. stable for outpt mangment. return precautiosna dvised. - Lab Interpretations Microbiology Results: Microbiology Results 12/22/16 18:20 Urine,Clean Catch Urine Culture - Final <10,000 CFU/ML. MULTIPLE SPECIES. PROBABLE CONTAMINATION. Lab Results: 12/22/16 18:30 12/22/16 18:30 Lab Results 12/22/16 18:30: Sodium 141, Potassium 3.2 L, Chloride 104, Carbon Dioxide 26, Anion Gap 14, BUN 6 L, Creatinine 0.8, Est GFR ( Amer) > 60, Est GFR (Non -Af Amer) > 60, Random Glucose 92, Calcium 9.0, Total Bilirubin 0.5, AST 25, ALT 39, Alkaline Phosphatase 64, Total Protein 7.2, Albumin 4.4, Globulin 2.8, Albumin/Globulin Ratio 1.6, Lipase 66 12/22/16 18:30: PT 10.8, INR 1.00, APTT 26.2 12/22/16 18:30: WBC 7.6 D, RBC 4.75, Hgb 10.7 L, Hct 34.7 L, MCV 73.1 L, MCH 22.5 L, MCHC 30.8 L, RDW 16.3 H, Plt Count 173, Gran % 49.3 L, Lymph % (Auto) 41.1 H, Dawes % (Auto) 7.8 H, Eos % (Auto) 1.4 L, Baso % (Auto) 0.4, Gran # 3.75 , Lymph # 3.1, Dawes # 0.6, Eos # 0.1, Baso # 0.03, Neutrophils % (Manual) 39 L, Lymphocytes % (Manual) 54 H, Monocytes % (Manual) 7 H, Platelet Evaluation Normal, Polychromasia Slight, Hypochromasia Slight, Anisocytosis (manual) Slight , Microcytosis (manual) Slight, Ovalocytes Slight 12/22/16 18:22: Urine Color Yellow, Urine Appearance Sl cloudy, Urine pH 7.0, Ur Specific [place] 1.010, Urine Protein Negative, Urine Glucose (UA) Negative, Urine Ketones Negative, Urine Blood Large H, Urine Nitrate Negative, Urine Bilirubin Negative, Urine Urobilinogen 0.2, Ur Leukocyte Esterase Trace H, Urine RBC Tntc, Urine WBC 2 - 5, Ur Epithelial Cells 3 - 4, Urine HCG, Qual Negative I have reviewed the lab results: Yes - RAD Interpretation Radiology Orders: 12/22/16 17:55 TRANSVAGINAL [US] Stat 12/22/16 20:34 ABD & PELVIS W/O PO OR IV CONT [CT] Stat - Medication Orders Current Medication Orders: Discontinued Medications Sodium Chloride (Sodium Chloride 0.9%) 1,000 mls @ 1,000 mls/hr IV .Q1H STA Stop: 12/22/16 18:54 Last Admin: 12/22/16 18:30 Dose: 1,000 mls/hr Morphine Sulfate (Morphine) 4 mg IVP STAT STA Stop: 12/22/16 17:56 Last Admin: 12/22/16 18:30 Dose: 4 mg Re-Assess: MAR Pain Assessment Document 12/22/16 19:30 HI (Rec: 12/22/16 20:56 HI [facility] [id number]) Pain Reassessment Is this a pain reassessment? Yes Sleep Is patient sleeping during reassessment? No Presence of Pain Presence of Pain Yes Morphine Sulfate (Morphine) 4 mg IVP STAT STA Stop: 12/22/16 20:35 Last Admin: 12/22/16 20:59 Dose: 4 mg Re-Assess: IAIN Pain Assessment Document 12/22/16 21:59 HI (Rec: 12/22/16 22:52 HI [facility] [id number]) Pain Reassessment Is this a pain reassessment? Yes Sleep Is patient sleeping during reassessment? No Presence of Pain Presence of Pain Yes Pain Scale Used Pain Scale Used Numeric Description Intensity of Pain at present 2 Potassium Chloride (K-Dur 20 Meq Er Tab) 40 meq PO STAT STA Stop: 12/22/16 19:40 Last Admin: 12/22/16 20:18 Dose: 40 meq - Scribe Statement The provider has reviewed the documentation as recorded by the Jaren Gardner Provider Scribe Attestation: All medical record entries made by the [place] were at my direction and personally dictated by me. I have reviewed the chart and agree that the record accurately reflects my personal performance of the history, physical exam, medical decision making, and the department course for this patient. I have also personally directed, reviewed, and agree with the discharge instructions and disposition. Disposition/Present on Arrival - Present on Arrival Any Indicators Present on Arrival: No History of DVT/PE: No History of Uncontrolled Diabetes: No Urinary Catheter: No History of Decub. Ulcer: No History Surgical Site Infection Following: None - Disposition Have Diagnosis and Disposition been Completed?: Yes Diagnosis: Abdominal pain, Ovarian cyst Disposition: HOME/ ROUTINE Disposition Time: 11:00 Condition: STABLE Discharge Instructions (ExitCare): Ovarian Cyst (ED), Abdominal Pain (ED) Additional Instructions: please follow up with your doctor. return to er with worsening symptoms or concerns. please see specialists. Prescriptions: Naproxen [Naprosyn] 500 mg PO BID PRN #14 tablet PRN Reason: Pain, Mild (1-3) Referrals: [facility] [Outside] - Follow up with primary [facility] [Outside] - Follow up with primary [facility] [Outside] - Follow up with primary [facility], [Non-Staff] - Follow up with primary [facility]ios MD [Staff Provider] - Follow up with primary [facility] [Medical Doctor] - Follow up with primary Forms: [facility] (French), WORK NOTE
[2016-12-22 18:32] LABS: URINE BILIRUBIN NEGATIVE (NEGATIVE); URINE BLOOD LARGE (NEGATIVE); URINE GLUCOSE (UA) NEGATIVE (NEGATIVE); URINE KETONE NEGATIVE (NEGATIVE); URINE LEUKOCYTE ESTERASE TRACE Leu/uL (NEGATIVE); URINE PROTEIN NEGATIVE mg/dL (<30 mg/dL); URINE UROBILINOGEN 0.2 E.U./dL (<1 E.U./dL)
[2016-12-22 18:35] LABS: URINE COLOR YELLOW (YELLOW)
[2016-12-22 18:36] LABS: URINE APPEARANCE SL CLOUDY (CLEAR)
[2016-12-22 18:41] LABS: URINE RBC TNTC /hpf (0-2)
[2016-12-22 18:46] LABS: BASO # 0.03 K/mm3 (0.0-2.0); BASO % 0.4 % (0.0-3.0); EOS # 0.1 (0.0-0.7); EOS % 1.4 % (1.5-5.0); GRAN # 3.75 (1.4-6.5); GRAN % 49.3 % (50.0-68.0); HEMATOCRIT 34.7 % (36.0-48.0); LYMPH # 3.1 (1.2-3.4); LYMPH % 41.1 % (22.0-35.0); MEAN CELL VOLUME 73.1 fl (80.0-105.0); MEAN CORPUSCULAR HEMOGLOBIN 22.5 pg (25.0-35.0); MEAN CORPUSCULAR HGB CONC 30.8 g/dl (31.0-37.0); MONO # 0.6 (0.1-0.6); MONO % 7.8 % (1.0-6.0); PLATELET COUNT 173 10^3/uL (120.0-450.0); RED CELL DISTRIBUTION WIDTH 16.3 % (11.5-14.5); WHITE BLOOD COUNT 7.6 10^3/ul (4.5-11.0)
[2016-12-22 18:54] LABS: PARTIAL THROMBOPLASTIN TIME 26.2 Seconds (23.7-30.8)
[2016-12-22 19:25] LABS: ANISOCYTOSIS SLIGHT; HYPOCHROMIA SLIGHT; NEUTROPHIL 39 % (50.0-70.0); PLATELET ESTIMATE NORMAL (NORMAL); POLYCHROMASIA SLIGHT
[2016-12-22 19:26] LABS: MICROCYTOSIS SLIGHT; OVALOCYTES SLIGHT
[2016-12-22 19:37] LABS: ALB/GLOB RATIO 1.6 (1.1-1.8); ALKALINE PHOSPHATASE 64 U/L (38-133); AST/SGOT 25 U/L (15-39); BILIRUBIN,TOTAL 0.5 mg/dL (0.2-1.3); BLOOD UREA NITROGEN 6 mg/dL (7-21); CARBON DIOXIDE 26 mmol/L (21-33); CHLORIDE 104 mmol/L (95-110); GFR AFRICAN-AMERICAN > 60; GLUCOSE,RANDOM 92 mg/dL (70-110); LIPASE 66 U/L (23-300); POTASSIUM 3.2 mmol/L (3.6-5.0); SODIUM 141 mmol/L (132-148); TOTAL PROTEIN 7.2 g/dL (5.8-8.3)
[2016-12-22] MEDS ORDERED: Potassium Chloride 20 mEq ER Tab PO STA (19:39)
[2016-12-22 19:54] LABS: ALT/SGPT 39 U/L (7-56)
[2016-12-22 20:28] VITALS: RESP 16
--- NOTE | 2016-12-22 22:48 | CT ---
EXAM: CT Abdomen and Pelvis Without Intravenous Contrast CLINICAL HISTORY: 36 years old, female; Pain; Abdominal pain; Localized; Lower; Prior surgery; Surgery type: (2) c-sections - cholecystectomy; Additional info: Lower abd pain TECHNIQUE: Axial computed tomography images of the abdomen and pelvis without intravenous contrast. All CT scans at this facility use one or more dose reduction techniques, viz.: automated exposure control; ma/kV adjustment per patient size (including targeted exams where dose is matched to indication; i.e. head); or iterative reconstruction technique. Coronal and sagittal reformatted images were created and reviewed. COMPARISON: CT - ABD PELVIS W/O PO OR IV CONT 11/14/2016 4:06:10 AM FINDINGS: Lower thorax: The bilateral lung bases are clear. ABDOMEN: Liver: The liver is enlarged. Gallbladder and bile ducts: The gallbladder is surgically absent. No intra-extrahepatic biliary ductal dilation. Pancreas: Limited evaluation secondary to the lack of intravenous contrast. Spleen: No acute findings. Adrenals: No acute findings. Kidneys and ureters: No obstructing stones. No hydronephrosis. PELVIS: Bladder: No acute findings. Reproductive: The uterus is anteverted and anteflexed, and otherwise unremarkable. Interval resolution of the right-sided ovarian cyst, seen on previous examination. Appendix: The appendix is of normal-caliber (series 2, image 115; series 601, image 58). ABDOMEN and PELVIS: Stomach and bowel: No acute findings. Peritoneum: No acute findings. Lymph nodes: Limited evaluation without intravenous contrast. Vasculature: No aortic aneurysm. Bones: No acute fracture. IMPRESSION: No acute intra-abdominal pathology, as detailed above. Normal appendix. Hepatomegaly.
[2016-12-22 23:02] VITALS: BP 147/82; PULSE 63; O2SAT 98
--- NOTE | 2016-12-23 09:14 | US ---
HISTORY: vaginal bleeding/pelvic pain COMPARISON: Abdomen and pelvis CT examination without contrast 12/22/2016 TECHNIQUE: Transvaginal pelvic ultrasound was performed in multiple planes with preliminary transabdominal ultrasonography also submitted. FINDINGS: UTERUS: Measures 11.4 x 5.0 x 6.3 cm. Uterus appears anteverted and enlarged with a heterogeneous echotexture throughout the myometrium. No fibroid or other mass lesion seen. ENDOMETRIUM: Measures 3.6 mm in diameter. Unremarkable. CERVIX: A few tiny nabothian cysts are seen at the cervix which is otherwise unremarkable. RIGHT OVARY: Measures 3.0 x 3.0 x 2.8 cm. No solid mass. Normal flow. Two adjacent follicles or solitary septated cyst seen at the inferior margins of the right ovary measuring 1.2 x 0.8 cm. LEFT OVARY: Measures 2.4 x 2.0 x 1.9 cm. No solid mass. Normal flow. FREE FLUID: No significant free fluid noted. OTHER FINDINGS: None. IMPRESSION: 1. No evidence to suggest ovarian torsion or suspicious mass. No perineal fluid collection identified. 2. 1.2 cm cyst with a solitary septation is identified in the right ovary inferiorly versus 2 adjacent follicles. 3. Enlarged and heterogeneous appearing uterus without focal cystic or solid mass identified. Unremarkable endometrium. Concur with V rad preliminary interpretation performed 12/22/2016.
== END 2016-12-22 23:05 | disposition home or self-care (01) ==
LOC: ED 17:23
DX: N83.201 Unspecified ovarian cyst, right side (principal); R10.9 Unspecified abdominal pain
CPT/HCPCS: 74176; 76830; 80053; 81001; 83690; 84703; 85025; 85610; 85730; 87086; 96374; 96376; 99284; J2270; J7040

== ENCOUNTER 2017-02-28 17:17 | Emergency (ER) | payer OTHER ==
[2017-02-28 17:23] VITALS: BMI 36.6
[2017-02-28 17:26] VITALS: BP 133/84; PULSE 67; RESP 18; TEMP 98.2; O2SAT 100
--- NOTE | 2017-02-28 17:44 | ED PDOC ---
Arrival/HPI - General Chief Complaint: Dental Pain Time Seen by Provider: 02/28/17 17:39 Historian: Patient - History of Present Illness Narrative History of Present Illness (Text): 02/28/17 17:45 36 yo female w/o significant PMHx come in for evaluation of Left upper toothache gradually developed since today AM " had one episode of vomiting due to pain". Pt admits, pain is localized over left upper tooth area, nonradiating and worse with chewing. Otherwise, pt denies recent illness, fever, chills, headache, dizziness, visual changes, focal deficits, neck pain, drooling, dysphagia, dyspnea, trismus, facial swelling, CP, SOB, wheezing, abd. pain, diarrhea, denies any other active complaints, denies recent dental work. Ambulate to ED for evaluation, not in any apparent distress. Past Medical History - Provider Review Nursing Documentation Reviewed: Yes - Travel History Have you recently traveled outside [place] w/in the past 3 mons?: No - Infectious Disease Hx of Infectious Diseases: None - Cardiac Hx Pacemaker: No - Pulmonary Hx Respiratory Disorders: Yes Hx Asthma: Yes - Neurological Hx Neurological Disorder: No - HEENT Hx HEENT Disorder: No - Renal Hx Renal Disorder: No - Endocrine/Metabolic Hx Endocrine Disorders: No - Hematological/Oncological Hx Blood Transfusions: No - Integumentary Hx Dermatological Disorder: No - Musculoskeletal/Rheumatological Hx Musculoskeletal Disorders: No - Gastrointestinal Hx Gastrointestinal Disorders: No Hx Gastroesophageal Reflux: Yes - Genitourinary/Gynecological Hx Genitourinary Disorders: No Other/Comment: Fibroids - Psychiatric Hx Emotional Abuse: No Hx Physical Abuse: No Hx Substance Use: No - Surgical History Hx Section: Yes (x2) Hx Cholecystectomy: Yes - Anesthesia Hx Anesthesia: Yes Hx Anesthesia Reactions: No Hx Malignant Hyperthermia: No - Suicidal Assessment Feels Threatened In Home Enviroment: No Family/Social History - Physician Review Nursing Documentation Reviewed: Yes Family/Social History: No Known Family HX Smoking Status: Never Smoked Hx Alcohol Use: No Hx Substance Use: No Allergies/Home Meds Allergies/Adverse Reactions: Allergies iodine Allergy (Severe, Verified 02/28/17 17:23) ANAPHYLAXIS Review of Systems - Review of Systems Constitutional: Normal Eyes: Normal ENT: Other (Left upper tooth ache). absent: Tinnitus, Sore Throat, Rhinorrhea, Sinus Congestion Respiratory: Normal Cardiovascular: Normal Gastrointestinal: Nausea, Vomiting. absent: Abdominal Pain, Diarrhea Genitourinary Female: Normal Musculoskeletal: Normal Skin: Normal Neurological: Normal Endocrine: Normal Hemo/Lymphatic: Normal Psychiatric: Normal Physical Exam Vital Signs Reviewed: Yes Vital Signs Temp Pulse Resp BP Pulse Ox 02/28/17 17:26 98.2 F 67 18 133/84 100 Temperature: Afebrile Blood Pressure: Normal Pulse: Regular Respiratory Rate: Normal Appearance: Positive for: Well-Appearing, Non-Toxic, Uncomfortable Pain Distress: Moderate (pain) Mental Status: Positive for: Alert and Oriented X 3 - Systems Exam Head: Present: Normocephalic Conjunctiva: Present: Normal Ears: Present: NORMAL TM, Normal Canal Mouth: Present: Moist Mucous Membranes, Normal Lips, Other (Left upper 2nd molar tender to percussion, mild gingival erythema. no edema, no flactulance, no facial swelling.). No: Dry, Drooling, Trismus Pharnyx: Present: Other (uvula midline, no edema.). No: ERYTHEMA, EXUDATE Nose (Internal): Present: Normal Inspection Neck: Present: Trachea Midline. No: MIDLINE TENDERNESS, Lymphadenopathy Respiratory/Chest: Present: Clear to Auscultation, Good Air Exchange. No: Wheezes, Decreased Breath Sounds Cardiovascular: Present: Regular Rate and Rhythm, Normal S1, S2 Abdomen: Present: Normal Bowel Sounds. No: Tenderness, Distention, Peritoneal Signs, Rebound, Guarding Back: No: CVA Tenderness Upper Extremity: Present: Normal Inspection Lower Extremity: Present: Normal ROM. No: Swelling, Deformity Neurological: Present: GCS=15, Speech Normal Skin: Present: Warm, Dry, Normal Color. No: Rashes Lymphatic: No: Cervical Adenopathy Psychiatric: Present: Alert, Oriented x 3 Medical Decision Making ED Course and Treatment: 02/28/17 17:50 On re-evaluation, pt is afebrile, hemodynamicaly stable. Non-toxic. Tolerate Po well in ED. PulsEOx 100% RA neck: Supple, (-) meningeal sign ENT: exam c/w left upper toothache/gingivitis r/o early abscess. uvula midline, no edema, no drooling, no trismus. No facial swelling or evidence of cellulitis. Lungs: CTA B/L, BS equal B/L Abd: benign. neurologicaly intact. Pt denies any allergy to antibiotic, no allergy to PCN. Pt advised, ref. to F/u with PMD, Dentist in 2 days for re-eavl. return to ED if any worsening or new changes. - Medication Orders Current Medication Orders: Discontinued Medications Penicillin V Potassium (Penicillin Vk Tab) 500 mg PO STAT STA PRN Reason: Protocol Stop: 02/28/17 17:45 Last Admin: 02/28/17 17:57 Dose: 500 mg Prednisone (Prednisone Tab) 60 mg PO STAT STA Stop: 02/28/17 17:46 Last Admin: 02/28/17 17:57 Dose: 60 mg Tramadol HCl (Ultram) 50 mg PO STAT STA Stop: 02/28/17 17:45 Last Admin: 02/28/17 17:57 Dose: 50 mg MAR Pain Assessment Document 02/28/17 17:57 HP (Rec: 02/28/17 17:57 [id number]) Pain Reassessment Is this a pain reassessment? Yes Disposition/Present on Arrival - Present on Arrival Any Indicators Present on Arrival: No History of DVT/PE: No History of Uncontrolled Diabetes: No Urinary Catheter: No History of Decub. Ulcer: No History Surgical Site Infection Following: None - Disposition Have Diagnosis and Disposition been Completed?: Yes Diagnosis: Toothache Disposition: HOME/ ROUTINE Disposition Time: 17:53 Patient Plan: Discharge Condition: STABLE Discharge Instructions (ExitCare): Toothache (ED) Additional Instructions: TAKE MEDICATION PRESCRIBED FOLLOW UP WITH PMD, DENTIST IN 1-2 DAYS FOR RE-EVALUATION. RETURN TO ED IF ANY WORSENING RO NEW CHANGES. Prescriptions: Penicillin VK [Penicillin VK Tab] 500 mg PO Q6H #28 tab traMADol [Ultram] 50 mg PO TID #7 tab Referrals: [facility] [Provider Group] - Follow up with primary [facility] [Provider Group] - Follow up with primary Forms: [employer] (Setswana)
== END 2017-02-28 18:19 | disposition home or self-care (01) ==
LOC: ED 17:17
DX: K08.89 Other specified disorders of teeth and supporting structures (principal)

== ENCOUNTER 2017-04-04 16:04 | Emergency (ER) | payer OTHER ==
[2017-04-04 16:07] VITALS: BMI 35.4
[2017-04-04] MEDS ORDERED: Albuterol-Ipratrop 3 mg / 0.5 (3 ml) UD IH STA ×3 (16:22→17:42)
[2017-04-04] MEDS ORDERED: Promethazine 6.25 MG/5 ML CUP PO STA (16:23)
--- NOTE | 2017-04-04 16:31 | ED PDOC ---
Arrival/HPI - General Chief Complaint: Shortness Of Breath Time Seen by Provider: 04/04/17 16:16 Historian: Patient - History of Present Illness Narrative History of Present Illness (Text): 04/04/17 16:28 36yo female with PMhx of Asthma who present with 3days history of nonproductive cough, wheezing. States using her hand held albuterol without relieve. Notes history of admission secondary to Asthma. Never intubated. Not steroid dependent. 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 Denies fever, chills, diaphoresis, calf pain, LE edema, recent ravel. Past Medical History - Provider Review Nursing Documentation Reviewed: Yes - Infectious Disease Hx of Infectious Diseases: None - Cardiac Hx Pacemaker: No - Pulmonary Hx Respiratory Disorders: Yes Hx Asthma: Yes - Neurological Hx Neurological Disorder: No - HEENT Hx HEENT Disorder: No - Renal Hx Renal Disorder: No - Endocrine/Metabolic Hx Endocrine Disorders: No - Hematological/Oncological Hx Blood Transfusions: No - Integumentary Hx Dermatological Disorder: No - Musculoskeletal/Rheumatological Hx Musculoskeletal Disorders: No - Gastrointestinal Hx Gastrointestinal Disorders: No Hx Gastroesophageal Reflux: Yes - Genitourinary/Gynecological Hx Genitourinary Disorders: No Other/Comment: Fibroids - Psychiatric Hx Emotional Abuse: No Hx Physical Abuse: No Hx Substance Use: No - Surgical History Hx Section: Yes (x2) Hx Cholecystectomy: Yes - Anesthesia Hx Anesthesia: Yes Hx Anesthesia Reactions: No Hx Malignant Hyperthermia: No - Suicidal Assessment Feels Threatened In Home Enviroment: No Family/Social History - Physician Review Nursing Documentation Reviewed: Yes Family/Social History: Unknown Family HX Smoking Status: Never Smoked Hx Alcohol Use: No Hx Substance Use: No Allergies/Home Meds Allergies/Adverse Reactions: Allergies iodine Allergy (Severe, Verified 04/04/17 16:06) ANAPHYLAXIS Home Medications: Home Meds Medication Instructions Recorded Confirmed Albuterol 0.042% [Albuterol 0.042% 3 ml IH PRN PRN 04/04/17 04/04/17 Inhal Yana (1.25mg/3ml) UD] Albuterol HFA [Ventolin HFA 90 1 puff IH PRN PRN 04/04/17 04/04/17 mcg/actuation (8 g)] Review of Systems - Physician Review All systems were reviewed & negative as marked: Yes - Review of Systems Constitutional: Normal Eyes: Normal ENT: Normal Respiratory: SOB, Cough, Wheezing. absent: Sputum Cardiovascular: Normal Gastrointestinal: Normal Genitourinary Female: Normal Musculoskeletal: Normal Skin: Normal Neurological: Normal Endocrine: Normal Hemo/Lymphatic: Normal Psychiatric: Normal Physical Exam Vital Signs Reviewed: Yes Vital Signs Temp Pulse Resp BP Pulse Ox 04/04/17 18:32 80 20 132/85 96 04/04/17 16:50 97.9 F 75 20 105/65 95 04/04/17 16:37 19 04/04/17 16:07 98.4 F 89 20 138/85 96 Temperature: Afebrile Blood Pressure: Normal Pulse: Regular Respiratory Rate: Normal Appearance: Positive for: Well-Appearing, Non-Toxic, Comfortable Pain Distress: None Mental Status: Positive for: Alert and Oriented X 3 - Systems Exam Head: Present: Atraumatic, Normocephalic Pupils: Present: PERRL Extroacular Muscles: Present: EOMI Conjunctiva: Present: Normal Mouth: Present: Moist Mucous Membranes Neck: Present: Normal Range of Motion Respiratory/Chest: Present: Good Air Exchange, Wheezes (diffuse wheeze. Expiratory >Inspiratory). No: Respiratory Distress, Accessory Muscle Use, Decreased Breath Sounds, Rales, Retracting, Rhonchi Cardiovascular: Present: Regular Rate and Rhythm, Normal S1, S2. No: Murmurs Abdomen: Present: Normal Bowel Sounds. No: Tenderness, Distention, Peritoneal Signs Back: Present: Normal Inspection Upper Extremity: Present: Normal Inspection. No: Cyanosis, Edema Lower Extremity: Present: Normal Inspection. No: Edema Neurological: Present: GCS=15, CN II-XII Intact, Speech Normal Skin: Present: Warm, Dry, Normal Color. No: Rashes Psychiatric: Present: Alert, Oriented x 3, Normal Insight, Normal Concentration Medical Decision Making ED Course and Treatment: 04/04/17 19:22 36yo female Asthmatic in ED for SOB, wheezing and coughing x 3days. she was treated with Duoneb x 3, Prednisone in ED . CXr NAD EKG NSR @89bpm. No ST changes On r evaluation she notes that she feels much better. Her lung was CTA b/l. She was talkign in full sentence and ambulatory without distress. she will be Dc home with a rx of prednisone, tessalone nd albuterol - RAD Interpretation Radiology Orders: 04/04/17 16:17 CHEST PORTABLE [RAD] Stat - Medication Orders Current Medication Orders: Discontinued Medications Albuterol/Ipratropium (Duoneb 3 Mg/0.5 Mg (3 Ml) Ud) 3 ml IH STAT STA Stop: 04/04/17 16:23 Last Admin: 04/04/17 16:36 Dose: 3 ml Albuterol/Ipratropium (Duoneb 3 Mg/0.5 Mg (3 Ml) Ud) 3 ml IH STAT STA Stop: 04/04/17 16:49 Last Admin: 04/04/17 17:19 Dose: 3 ml Albuterol/Ipratropium (Duoneb 3 Mg/0.5 Mg (3 Ml) Ud) 3 ml IH STAT STA Stop: 04/04/17 17:43 Last Admin: 04/04/17 17:46 Dose: 3 ml Prednisone (Prednisone Tab) 60 mg PO STAT ONE Stop: 04/04/17 16:23 Last Admin: 04/04/17 16:37 Dose: 60 mg Promethazine HCl (Phenergan Syrup) 6.25 mg PO ONCE STA Stop: 04/04/17 16:24 Last Admin: 04/04/17 16:37 Dose: 6.25 mg Disposition/Present on Arrival - Present on Arrival Any Indicators Present on Arrival: No History of DVT/PE: No History of Uncontrolled Diabetes: No Urinary Catheter: No History of Decub. Ulcer: No History Surgical Site Infection Following: None - Disposition Have Diagnosis and Disposition been Completed?: Yes Diagnosis: Asthma exacerbation Disposition: HOME/ ROUTINE Disposition Time: 19:20 Patient Plan: Discharge Condition: STABLE Discharge Instructions (ExitCare): Asthma (ED) Additional Instructions: Follow up with your doctor Return to ED for any new or worsening symptoms Prescriptions: Albuterol HFA [Ventolin HFA 90 mcg/actuation (8 g)] 2 puff IH [id number] #[id number] puff Benzonatate [Tessalon Perle] 100 mg PO TID #20 capsule predniSONE [Prednisone] 20 mg PO BID #10 tab Referrals: José Wayne MD [Primary Care Provider] - Follow up with primary Forms: [employer] (Peruvian), WORK NOTE
[2017-04-04 16:52] VITALS: TEMP 97.9
[2017-04-04 19:39] VITALS: BP 114/75; PULSE 98; RESP 18; O2SAT 98
--- NOTE | 2017-04-05 09:35 | RAD ---
HISTORY: cough COMPARISON: No prior. FINDINGS: LUNGS: No active pulmonary disease. PLEURA: No significant pleural effusion identified, no pneumothorax apparent. CARDIOVASCULAR: Normal. OSSEOUS STRUCTURES: No significant abnormalities. VISUALIZED UPPER ABDOMEN: Normal. OTHER FINDINGS: None. IMPRESSION: No active disease.
--- NOTE | 2017-04-05 13:48 | CARD ---
APPROVED REPORT EKG Measurement Heart [id number] <Conclusion> Normal sinus rhythm Possible Left atrial enlargement
== END 2017-04-04 19:40 | disposition home or self-care (01) ==
LOC: ED 16:04
DX: J45.901 Unspecified asthma with (acute) exacerbation (principal)

== ENCOUNTER 2017-06-16 19:11 | Observation (INO) | payer OTHER ==
[2017-06-16 19:23] VITALS: BMI 34.3
[2017-06-16] MEDS ORDERED: Sodium Chloride 0.9% 1,000 ML IV STA (21:06)
[2017-06-16] MEDS ORDERED: HYDROmorphone 0.5 mg/0.5 ml ISec IVP STA (21:07)
--- NOTE | 2017-06-16 21:08 | ED PDOC ---
Arrival/HPI - General Chief Complaint: Back Pain Time Seen by Provider: 06/16/17 21:04 Historian: Patient - History of Present Illness Narrative History of Present Illness (Text): 06/16/17 21:00 pt p/w + 2 weeks onset of right flank pain, slightly radiating to right lower/ across her abd, waxing/waning behavior of the pain, at most pain is 9/10; + urinary changes with urinary frequency/hesitancy, no hematuria; + diaphoresis, + mild chills/subjective heat; no cp/sob/palpitations, + nausea, no vomiting, decr appetite; pt states she couldnt get out of work and with the long weekend coming up, she decided to come to ED for further eval/check up; pt states some bowel pain when she move her bowels lately, no gross bleeding, no fall/trauma/ sick contact, no travel; pt denied rashes; pt is here for further eval; pt's without other complaints. MOTHER: hx of renal stones Time/Duration: > week (2 weeks) Symptom Onset: Sudden Symptom Course: Worsening Quality: Tightness, Stabbing, Cramping Severity Level: 9, Severe Activities at Onset: Rest Context: Home Past Medical History - Provider Review Nursing Documentation Reviewed: Yes - Travel History Have you recently traveled outside [place] w/in the past 3 mons?: No - Past History Past History: No Previous - Infectious Disease Hx of Infectious Diseases: None - Cardiac Hx Pacemaker: No - Pulmonary Hx Respiratory Disorders: Yes Hx Asthma: Yes - Neurological Hx Neurological Disorder: No - HEENT Hx HEENT Disorder: No - Renal Hx Renal Disorder: No - Endocrine/Metabolic Hx Endocrine Disorders: No - Hematological/Oncological Hx Blood Transfusions: No - Integumentary Hx Dermatological Disorder: No - Musculoskeletal/Rheumatological Hx Musculoskeletal Disorders: No - Gastrointestinal Hx Gastrointestinal Disorders: No Hx Gastroesophageal Reflux: Yes - Genitourinary/Gynecological Hx Genitourinary Disorders: No Other/Comment: Fibroids - Psychiatric Hx Emotional Abuse: No Hx Physical Abuse: No Hx Substance Use: No - Surgical History Hx Section: Yes (x2) Hx Cholecystectomy: Yes - Anesthesia Hx Anesthesia: Yes Hx Anesthesia Reactions: No Hx Malignant Hyperthermia: No - Suicidal Assessment Feels Threatened In Home Enviroment: No Family/Social History - Physician Review Nursing Documentation Reviewed: Yes Family/Social History: No Known Family HX Smoking Status: Never Smoked Hx Alcohol Use: No Hx Substance Use: No Hx Substance Use Treatment: No Allergies/Home Meds Allergies/Adverse Reactions: Allergies iodine Allergy (Severe, Verified 04/04/17 16:06) ANAPHYLAXIS Home Medications: Home Meds Medication Instructions Recorded Confirmed Albuterol HFA [Ventolin HFA 90 1 puff IH PRN PRN 04/04/17 06/16/17 mcg/actuation (8 g)] Review of Systems - Review of Systems Constitutional: Normal Eyes: Normal ENT: Normal Respiratory: Normal Cardiovascular: Normal Gastrointestinal: Abdominal Pain, Nausea Genitourinary Female: Frequency. absent: Dysuria, Hematuria, Vaginal Bleeding, Vaginal Discharge Musculoskeletal: Back Pain (right flank pain) Skin: Normal Neurological: Normal Endocrine: Diaphoresis. absent: Polyuria, Polydipsia Hemo/Lymphatic: Normal Psychiatric: Normal Physical Exam Vital Signs Reviewed: Yes Vital Signs Temp Pulse Resp BP Pulse Ox 06/16/17 21:12 98.8 F 74 16 131/74 98 06/16/17 19:20 98.7 F 85 18 112/72 99 Temperature: Afebrile Blood Pressure: Normal Pulse: Regular Respiratory Rate: Normal Appearance: Positive for: Well-Appearing, Other (uncomfortable, mild-moderate distress due to pain, alert/awake, GCS = 15, oriented x 3, cooperative, follows commands with ease) Pain Distress: Moderate Mental Status: Positive for: Alert and Oriented X 3 - Systems Exam Head: Present: Atraumatic, Normocephalic Pupils: Present: PERRL, Other (no nystagmus, no photophobia, sclera anicteric) Extroacular Muscles: Present: EOMI Conjunctiva: Present: Normal Ears: Present: Normal, NORMAL TM, Other (WNL) Mouth: Present: Normal Teeth, Other (mild dry oral mucosa, no drooling/stridor, no exudate/lesions, uvula/tongue are midline; no dysphonia) Pharnyx: Present: Normal. No: EXUDATE, Uvular Deviation Nose (External): Present: Atraumatic Nose (Internal): Present: Normal Inspection Neck: Present: Normal Range of Motion, Trachea Midline, Other (intact ROM, no midline tenderness, no nuchal rigidity, no menigneal signs, no step off). No: MIDLINE TENDERNESS Respiratory/Chest: Present: Clear to Auscultation, Good Air Exchange, Other (no accessory muscle use noted, no tachypenia; no w/r/r) Cardiovascular: Present: Regular Rate and Rhythm, Normal S1, S2. No: Murmurs Abdomen: Present: Normal Bowel Sounds, Other (obese/well nourished female, no focal tenderness, no kwok's sign, no mcburney's point tenderness, no masses/ rebound/guarding/rigidity) Back: Present: CVA Tenderness (+ right CVAT; no midline tenderness, no step off , no gross deformities noted). No: Midline Tenderness Upper Extremity: Present: Normal Inspection, Normal ROM, NORMAL PULSES, Neurovascularly Intact, Capillary Refill < 2s Lower Extremity: Present: Normal Inspection, NORMAL PULSES, Normal ROM, Neurovascularly Intact, Capillary Refill < 2 s Neurological: Present: GCS=15, CN II-XII Intact, Speech Normal Skin: Present: Warm, Normal Color, Other (cap refill < 1sec, no ulcerations, no petechiae) Psychiatric: Present: Alert, Oriented x 3 Medical Decision Making ED Course and Treatment: 06/16/17 21:05 Impression: right flank pain x 2 weeks i have consider all the differential diagnosis regarding pt's chief medical complaints/clinical findings, including but are not limited to: r/o kid stones, unlikely appy, unlikley UTI, will r/o A/P: right flank pain - labs - iv - ct - ua - observe - supportive care 06/16/17 22:57 pt continues to have right flank and now mid abd pain; pt states pain initially improved slightly, but after 2 doses of morphine continues to have pain will continue to monitor 06/16/17 23:12 pt continues to have abd pain/flank pain due to her persistent pain, will recommend admission/observation pt agrees with ED recommendation pt is made aware of pt's medical results agrees with admission/obs I spoke to Dr Myers, overnight hospitalists, made aware, agrees with admission/ observation, will have her resident come see patient as well - Lab Interpretations Lab Results: 06/16/17 21:17 06/16/17 21:17 Lab Results 06/16/17 21:17: Sodium 145, Potassium 3.7, Chloride 109 H, Carbon Dioxide 25, Anion Gap 15, BUN 12, Creatinine 0.7, Est GFR ( Amer) > 60, Est GFR (Non- Af Amer) > 60, Random Glucose 104, Calcium 9.6, Total Bilirubin 0.3, AST 33, ALT 33, Alkaline Phosphatase 56, Total Protein 6.7, Albumin 4.0, Globulin 2.7, Albumin/Globulin Ratio 1.5, Lipase 72 06/16/17 21:17: Urine Color Yellow, Urine Appearance Clear, Urine pH 6.0, Ur Specific [place] >= 1.030, Urine Protein Trace H, Urine Glucose (UA) Negative, Urine Ketones Trace H, Urine Blood Trace-intact H, Urine Nitrate Negative, Urine Bilirubin Negative, Urine Urobilinogen 0.2, Ur Leukocyte Esterase Negative , Urine RBC 1 - 3, Urine WBC 2 - 5, Ur Epithelial Cells 1 - 3, Urine Bacteria Few 06/16/17 21:17: WBC 9.6 D, RBC 4.77, Hgb 10.4 L, Hct 34.7 L, MCV 72.7 L, MCH 21.8 L, MCHC 30.0 L, RDW 17.7 H, Plt Count 180, Gran % 51.5, Lymph % (Auto) 39.2 H, [place] % (Auto) 6.5 H, Eos % (Auto) 2.6, Baso % (Auto) 0.2, Gran # 4.92, Lymph # (Auto) 3.8 H, [place] # (Auto) 0.6, Eos # (Auto) 0.3, Baso # (Auto) 0.02 I have reviewed the lab results: Yes Interpretation: Abnormal lab values (trace RBCs noted in UA) - RAD Interpretation Radiology Orders: 06/16/17 21:06 ABD & PELVIS W/O PO OR IV CONT [CT] Stat CT abd/pelvis - NAD Emt Driver: Radiologist - Medication Orders Current Medication Orders: Famotidine (Pepcid 20mg/50ml Premix) 20 mg in 50 mls @ 100 mls/hr IVPB STAT STA Stop: 06/16/17 23:28 Discontinued Medications Fentanyl (Fentanyl) 50 mcg IVP ONCE ONE Stop: 06/16/17 22:57 Last Admin: 06/16/17 23:09 Dose: 50 mcg IAIN Pain Assessment Document 06/16/17 23:09 AB (Rec: 06/16/17 23:09 AB [id number]) Pain Reassessment Is this a pain reassessment? Yes Sleep Is patient sleeping during reassessment? No Presence of Pain Presence of Pain Yes Pain Scale Used Pain Scale Used Numeric Location Left, Right or Bilateral Right Upper or Lower Lower Pain Location Body Site Back Description Description Constant Intensity of Pain at present 10 Pain Behavior Moaning Crying Guarding Irritability Aggravating Factors ADL's Alleviating Factors/Management Medication Techniques Alleviating Factors Medication IVP Administration Document 06/16/17 23:09 AB (Rec: 06/16/17 23:09 AB [id number]) Charges for Administration # of IVP Administrations 1 Sodium Chloride (Sodium Chloride 0.9%) 1,000 mls @ 1,000 mls/hr IV .Q1H STA Stop: 06/16/17 22:05 Last Admin: 06/16/17 21:49 Dose: 1,000 mls/hr eMAR Start Stop Document 06/16/17 21:49 AB (Rec: 06/16/17 21:49 AB [id number]) Intravenous Solution Start Date 06/16/17 Start Time 21:49 End Date 06/16/17 End time 22:49 Total Infusion Time 60 Ketorolac Tromethamine (Toradol) 30 mg IVP STAT STA Stop: 06/16/17 21:07 Last Admin: 06/16/17 21:49 Dose: 30 mg MAR Pain Assessment Document 06/16/17 21:49 AB (Rec: 06/16/17 21:50 AB [id number]) Pain Reassessment Is this a pain reassessment? Yes Sleep Is patient sleeping during reassessment? No Presence of Pain Presence of Pain Yes Pain Scale Used Pain Scale Used Numeric Location Left, Right or Bilateral Right Upper or Lower Lower Pain Location Body Site Back Description Description Constant Intensity of Pain at present 6 Pain Behavior Moaning Guarding Aggravating Factors ADL's Alleviating Factors/Management Medication Techniques Alleviating Factors Heat IVP Administration Document 06/16/17 21:49 AB (Rec: 06/16/17 21:50 AB [id number]) Charges for Administration # of IVP Administrations 1 Morphine Sulfate (Morphine) 4 mg IVP STAT STA Stop: 06/16/17 22:01 Last Admin: 06/16/17 22:33 Dose: 4 mg MAR Pain Assessment Document 06/16/17 22:33 AB (Rec: 06/16/17 22:33 [id number] Pain Reassessment Is this a pain reassessment? Yes Sleep Is patient sleeping during reassessment? No Presence of Pain Presence of Pain Yes Pain Scale Used Pain Scale Used Numeric Location Left, Right or Bilateral Right Upper or Lower Lower Pain Location Body Site Back Description Description Constant Intensity of Pain at present 5 Pain Behavior Guarding Aggravating Factors ADL's Alleviating Factors/Management Medication Techniques Alleviating Factors Medication IVP Administration Document 06/16/17 22:33 AB (Rec: 06/16/17 22:33 [id number][facility] Charges for Administration # of IVP Administrations 1 Morphine Sulfate (Morphine) 4 mg IVP STAT STA Stop: 06/16/17 22:02 Last Admin: 06/16/17 23:08 Dose: 4 mg MAR Pain Assessment Document 06/16/17 23:08 AB (Rec: 06/16/17 23:08 [id number]) Pain Reassessment Is this a pain reassessment? Yes Sleep Is patient sleeping during reassessment? No Presence of Pain Presence of Pain Yes Pain Scale Used Pain Scale Used Numeric Location Left, Right or Bilateral Right Pain Location Body Site Back Description Description Constant Intensity of Pain at present 10 Pain Behavior Moaning Crying Guarding Withdrawal from Touch Aggravating Factors ADL's Alleviating Factors/Management Medication Techniques Alleviating Factors Medication IVP Administration Document 06/16/17 23:08 AB (Rec: 06/16/17 23:08 [id number]) Charges for Administration # of IVP Administrations 1 Ondansetron HCl (Zofran Inj) 4 mg IVP STAT STA Stop: 06/16/17 21:07 Last Admin: 06/16/17 21:50 Dose: 4 mg IVP Administration Document 06/16/17 21:50 AB (Rec: 06/16/17 21:50 [id number]) Charges for Administration # of IVP Administrations 1 Disposition/Present on Arrival - Present on Arrival Any Indicators Present on Arrival: No History of DVT/PE: No History of Uncontrolled Diabetes: No Urinary Catheter: No History of Decub. Ulcer: No History Surgical Site Infection Following: None - Disposition Have Diagnosis and Disposition been Completed?: Yes Diagnosis: Intractable abdominal pain, Flank pain Disposition: HOSPITALIZED Disposition Time: 23:14 Patient Plan: Admission, Observation Condition: STABLE Referrals: Roxy Menon [Non-Staff] - Follow up with primary Forms: GENIAC ([place])
[2017-06-16 21:36] LABS: BASO # 0.02 K/mm3 (0.0-2.0); BASO % 0.2 % (0.0-3.0); EOS # 0.3 (0.0-0.7); EOS % 2.6 % (1.5-5.0); GRAN # 4.92 (1.4-6.5); GRAN % 51.5 % (50.0-68.0); HEMOGLOBIN 10.4 g/dL (12.0-16.0); LYMPH # 3.8 (1.2-3.4); LYMPH % 39.2 % (22.0-35.0); MEAN CELL VOLUME 72.7 fl (80.0-105.0); MEAN CORPUSCULAR HEMOGLOBIN 21.8 pg (25.0-35.0); MONO # 0.6 (0.1-0.6); MONO % 6.5 % (1.0-6.0); PLATELET COUNT 180 10^3/uL (120.0-450.0); RBC 4.77 10^6/uL (3.5-6.1); RED CELL DISTRIBUTION WIDTH 17.7 % (11.5-14.5); WHITE BLOOD COUNT 9.6 10^3/ul (4.5-11.0)
[2017-06-16 21:38] LABS: URINE BILIRUBIN NEGATIVE (NEGATIVE); URINE BLOOD TRACE-INTACT (NEGATIVE); URINE GLUCOSE (UA) NEGATIVE (NEGATIVE); URINE LEUKOCYTE ESTERASE NEGATIVE Leu/uL (NEGATIVE); URINE NITRATE NEGATIVE (NEGATIVE); URINE PROTEIN TRACE mg/dL (<30 mg/dL); URINE UROBILINOGEN 0.2 E.U./dL (<1 E.U./dL)
[2017-06-16 21:50] LABS: ALB/GLOB RATIO 1.5 (1.1-1.8); CALCIUM 9.6 mg/dL (8.4-10.5); GFR AFRICAN-AMERICAN > 60; GFR NON-AFRICAN AMERICAN > 60; LIPASE 72 U/L (23-300); URINE APPEARANCE CLEAR (CLEAR); URINE COLOR YELLOW (YELLOW)
[2017-06-16 21:52] LABS: URINE BACTERIA FEW (NEG)
[2017-06-16 21:53] LABS: ALT/SGPT 33 U/L (7-56); AST/SGOT 33 U/L (14-36); BLOOD UREA NITROGEN 12 mg/dL (7-21)
[2017-06-16] MEDS ORDERED: Morphine 4 mg/ml ISec IVP STA ×2 (22:00→22:01)
--- NOTE | 2017-06-16 22:43 | CT ---
EXAM: CT Abdomen and Pelvis Without Intravenous Contrast CLINICAL HISTORY: 36 years old, female; Pain; Abdominal pain; Flank; Right; Additional info: Right flank pain TECHNIQUE: Axial computed tomography images of the abdomen and pelvis without intravenous contrast. All CT scans at this facility use one or more dose reduction techniques, viz.: automated exposure control; ma/kV adjustment per patient size (including targeted exams where dose is matched to indication; i.e. head); or iterative reconstruction technique. Coronal and sagittal reformatted images were created and reviewed. COMPARISON: CT - ABD PELVIS W/O PO OR IV CONT 2016-12-22 22:04 FINDINGS: Lower thorax: No acute findings. ABDOMEN: Liver: Unremarkable. Gallbladder and bile ducts: Cholecystectomy. No ductal dilation. Pancreas: Unremarkable. No ductal dilation. Spleen: Unremarkable. No splenomegaly. Adrenals: Unremarkable. No mass. Kidneys and ureters: Unremarkable. No obstructing stones. No hydronephrosis. Stomach and bowel: Unremarkable. No obstruction. Appendix: No findings to suggest acute appendicitis. PELVIS: Bladder: Unremarkable. No stones. Reproductive: Unremarkable as visualized. ABDOMEN and PELVIS: Intraperitoneal space: Unremarkable. No free air. No significant fluid collection. Bones/joints: No acute fracture. No dislocation. Soft tissues: Unremarkable. Vasculature: Unremarkable. No abdominal aortic aneurysm. Lymph nodes: Unremarkable. No enlarged lymph nodes. IMPRESSION: No acute abnormality in the abdomen or pelvis. Remainder of findings as above.
[2017-06-16] MEDS ORDERED: Famotidine 20mg/50ml 20 MG/50 ML BAG IVPB STA (22:59)
--- NOTE | 2017-06-17 01:28 | CP.PCM.PN ---
Subjective - Date & Time of Evaluation Date of Evaluation: 06/17/17 Time of Evaluation: 01:25 - Subjective Subjective: This patient is a 36 year old female with a PMHx of Asthma and DVT during Objective - Vital Signs/Intake and Output Vital Signs (last 24 hours): Temp Pulse Resp BP Pulse Ox 97.7 F 79 16 142/81 97 06/16/17 23:00 06/16/17 23:00 06/16/17 23:00 06/16/17 23:00 06/16/17 23:00
--- NOTE | 2017-06-17 02:05 | CP.PCM.HP ---
"History of Present Illness - History of Present Illness History of Present Illness: This patient is a 36 year old female with a PMHx of Asthma and DVT (During ) who presents complaining of worsening right flank pain with radiation to her abdomen x 2 weeks. Patient rates the pain an 8/10 even after morphine x 2, Fentanyl, and Toradol in the ED. She describes the pain as sharp and squeezing. The pain is exacerbated with movement and laying flat and is relieved by nothing. Patient attempted to use Aleve to relieve the pain without any success. Patient does admit to increased urinary frequency and urinary hesitancy but denies any dysuria, incontinence, or hematuria. She also denies any trauma, fever, chest pain, shortness of breath, nausea, vomiting, diarrhea, or constipation. She did complain of slight burning sensation during her last bowel movement. She denies any melena/Gross Blood in the stool. Patient stated that she was still in pain and asked for her next dose of pain medication. She stated that toradol made her stomach hurt. ROS: As stated above. PMHx: Asthma, DVT (During ), HLD/HTN (No longer on meds due to weight loss) PSHx: Cholecystectomy (2015), x 2 Allergies: iodine SocialHx: Denies tobacco, alcohol, and illicit drug use. 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 Pt forgot the name. Present on Admission - Present on Admission Any Indicators Present on Admission: Yes History of DVT/PE: Yes Review of Systems - Review of Systems Review of Systems: As per HPI Past Patient History - Infectious Disease Hx of Infectious Diseases: None - Past Social History Smoking Status: Never Smoked - CARDIAC Hx Pacemaker: No - PULMONARY Hx Respiratory Disorders: Yes Hx Asthma: Yes - NEUROLOGICAL Hx Neurological Disorder: No - HEENT Hx HEENT Problems: No - RENAL Hx Chronic Kidney Disease: No - ENDOCRINE/METABOLIC Hx Endocrine Disorders: No - HEMATOLOGICAL/ONCOLOGICAL Hx Blood Transfusions: No - INTEGUMENTARY Hx Dermatological Problems: No - MUSCULOSKELETAL/RHEUMATOLOGICAL Hx Musculoskeletal Disorders: No - GASTROINTESTINAL Hx Gastrointestinal Disorders: No Hx Gastroesophageal Reflux: Yes - GENITOURINARY/GYNECOLOGICAL Hx Genitourinary Disorders: No Other/Comment: Fibroids - PSYCHIATRIC Hx Emotional Abuse: No Hx Physical Abuse: No Hx Substance Use: No - SURGICAL HISTORY Hx Section: Yes (x2) Hx Cholecystectomy: Yes - ANESTHESIA Hx Anesthesia: Yes Hx Anesthesia Reactions: No Hx Malignant Hyperthermia: No Meds Allergies/Adverse Reactions: Allergies Allergy/AdvReac Type Severity Reaction Status Date / Time iodine Allergy Severe ANAPHYLAXIS Verified 04/04/17 16:06 Physical Exam - Constitutional Appears: Well, Non-toxic, No Acute Distress - Head Exam Head Exam: ATRAUMATIC, NORMAL INSPECTION, NORMOCEPHALIC - Eye Exam Eye Exam: EOMI, Normal appearance. absent: Scleral icterus - ENT Exam ENT Exam: Mucous Membranes Moist - Neck Exam Neck exam: Negative for: Lymphadenopathy - Respiratory Exam Respiratory Exam: Clear to Auscultation Bilateral, NORMAL BREATHING PATTERN. absent: Rales, Rhonchi, Wheezes - Cardiovascular Exam Cardiovascular Exam: RRR, +S1, +S2. absent: JVD - GI/Abdominal Exam GI & Abdominal Exam: Normal Bowel Sounds, Soft, Tenderness (RUQ). absent: Distended, Firm, Guarding, Organomegaly, Rebound - Extremities Exam Extremities exam: Positive for: normal capillary refill, normal inspection. Negative for: pedal edema - Back Exam Back exam: CVA tenderness (R). absent: CVA tenderness (L) - Neurological Exam Neurological exam: Alert, Oriented x3 - Psychiatric Exam Psychiatric exam: Normal Affect, Normal Mood - Skin Skin Exam: Dry, Intact, Normal Color, Warm Results - Vital Signs Recent Vital Signs: Last Vital Signs Temp 97.7 F 06/16/17 23:00 Pulse 79 06/16/17 23:00 Resp 16 06/16/17 23:00 BP 142/81 06/16/17 23:00 Pulse Ox 97 06/16/17 23:00 - Labs Result Diagrams: 06/16/17 21:17 06/16/17 21:17 Assessment & Plan - Assessment and Plan (Free Text) Assessment: 36 year old female with PMhx of Asthma, DVT, HTN, and HLD presents with Right flank pain that radiates to abdomen Plan: Flank pain w/ radiation to abdomen (Acute) DDx: Nephrolithiais (radiolucent), Peptic Ulcer CT Abd/Pelvis: NEGATIVE UA: Trace Protein, Ketones, and Blood Urology Consult (Dr. Isma Chaves). Call Dr. Chaves regarding consult in the Morning. Fluids: NS @ 100mls/hr Pain Control: Morphine 2 IV Q4H for severe pain | Ibuprofen 600 Q6H for Mod. Pain Hx of Asthma (Chronic) Home Ventolin PRN HLD/HTN (Chronic) Patient states her PMD took her off her antihypertensive and anticholesterol medications. Proph Protonix Lovenox (If switched to Inpatient) Patient discussed with Attending (Dr. Sina Myers) Sarah Beth Scott, PGY1"
[2017-06-17] MEDS ORDERED: Albuterol 0.083% Inhal Sol (2.5 mg/3 mL) UD IH PRN (02:29)
[2017-06-17] MEDS ORDERED: Morphine 2 mg/ml ISec IVP STA (06:29)
[2017-06-17] MEDS: Pantoprazole 40 mg EC Tab PO SCH (07:00)
[2017-06-17] MEDS ORDERED: Morphine 4 mg/ml ISec IV PRN (08:38)
[2017-06-17] MEDS ORDERED: Morphine 2 mg/ml ISec IVP PRN ×2 (10:00)
--- NOTE | 2017-06-17 10:34 | RAD ---
HISTORY: r/o nephrolithiasis COMPARISON: No prior. FINDINGS: BOWEL: Normal. No obstruction. No free air. BONES: Normal. OTHER FINDINGS: Surgical clips in right upper quadrant likely status post cholecystectomy. IMPRESSION: No active disease.
[2017-06-17] MEDS: Morphine 4 mg/ml ISec IVP PRN ×2 (11:03→18:02)
[2017-06-17 17:24] LABS: BARBITURATES, UR NEGATIVE (NEGATIVE); BENZODIAZEPINES, UR NEGATIVE (NEGATIVE); OPIATES, UR POSITIVE (NEGATIVE); PHENCYCLIDINE, UR NEGATIVE (NEGATIVE)
--- NOTE | 2017-06-17 17:54 | US ---
HISTORY: h/o ovarian cyst rupture,rlq pain rad to groin COMPARISON: None available. TECHNIQUE: Transabdominal and transvaginal FINDINGS: UTERUS: Measures 9.2 x 3.9 x 5 point a cm. Normal in size and appearance. No fibroid or other mass lesion seen. ENDOMETRIUM: Measures 9 mm in diameter. Unremarkable. CERVIX: No cervical abnormality identified. RIGHT OVARY: Measures 3.0 x 2.5 x 2.9 cm. No solid mass. Normal flow. LEFT OVARY: Measures 2.5 x 2.1 x 2.4 cm. No solid mass. Normal flow. FREE FLUID: No significant free fluid noted. OTHER FINDINGS: None. IMPRESSION: Unremarkable pelvic ultrasound.
[2017-06-17] MEDS: Sodium Chloride 0.9% 1,000 ML IV SCH (18:09)
[2017-06-17] MEDS ORDERED: DiphenhydrAMINE 50 mg/ml Inj IVP STA (19:01)
[2017-06-18 03:33] VITALS: RESP 20
[2017-06-18] MEDS: Pantoprazole 40 mg EC Tab PO SCH (06:09)
[2017-06-18] MEDS: Sodium Chloride 0.9% 1,000 ML IV SCH ×2 (06:11→09:25)
[2017-06-18 08:29] LABS: BASO # 0.01 K/mm3 (0.0-2.0); BASO % 0.2 % (0.0-3.0); EOS # 0.2 (0.0-0.7); EOS % 4.3 % (1.5-5.0); GRAN # 1.96 (1.4-6.5); GRAN % 42.1 % (50.0-68.0); LYMPH # 2.2 (1.2-3.4); LYMPH % 46.9 % (22.0-35.0); MEAN CELL VOLUME 74.2 fl (80.0-105.0); MEAN CORPUSCULAR HEMOGLOBIN 21.6 pg (25.0-35.0); MEAN CORPUSCULAR HGB CONC 29.2 g/dl (31.0-37.0); MONO # 0.3 (0.1-0.6); MONO % 6.5 % (1.0-6.0); PLATELET COUNT 170 10^3/uL (120.0-450.0); RBC 4.62 10^6/uL (3.5-6.1); WHITE BLOOD COUNT 4.7 10^3/ul (4.5-11.0)
--- NOTE | 2017-06-18 08:29 | CP.PCM.PN ---
"Subjective - Date & Time of Evaluation Date of Evaluation: 06/18/17 Time of Evaluation: 08:25 - Subjective Subjective: Patient seen and examined at bedside. States after transvaginal u/s experienced some itching; was given benadryl and slept throughout the night. Admits to improvement in pain however right flank pain is still present as well as rlq pain which radiates to the right groin. Patient endorses decreased urine frequency despite increased fluid intake. Denies fevers, chills, diarrhea, shortness of breath, headache, cough. Objective - Vital Signs/Intake and Output Vital Signs (last 24 hours): Temp Pulse Resp BP Pulse Ox 97.9 F 69 20 149/79 96 06/18/17 08:00 06/18/17 08:00 06/18/17 08:00 06/18/17 08:00 06/18/17 08:00 Intake and Output: 06/18/17 06/18/17 06:59 18:59 Intake Total 2820 Balance 2820 - Medications Medications: Current Medications Acetaminophen (Tylenol 325mg Tab) 650 mg PO Q6H PRN PRN Reason: Headache Last Admin: 06/17/17 14:39 Dose: 650 mg Albuterol Sulfate (Albuterol 0.083% Inhal Yana (2.5 Mg/3 Ml) Ud) 2.5 mg IH [id number] PRN PRN Reason: WHEEZING Enoxaparin Sodium (Lovenox) 40 mg SC DAILY ERIC PRN Reason: Protocol Sodium Chloride (Sodium Chloride 0.9%) 1,000 mls @ 100 mls/hr IV .Q10H [facility] Last Admin: 06/18/17 06:11 Dose: 100 mls/hr Ibuprofen (Motrin Tab) 600 mg PO Q6H PRN PRN Reason: Pain, moderate (4-7) Last Admin: 06/17/17 03:24 Dose: 600 mg Morphine Sulfate (Morphine) 4 mg IVP Q4H PRN PRN Reason: Pain, severe (8-10) Last Admin: 06/17/17 18:02 Dose: 4 mg Ondansetron HCl (Zofran Inj) 2 mg IVP Q6H PRN PRN Reason: Nausea/Vomiting Last Admin: 06/17/17 09:01 Dose: 2 mg Pantoprazole Sodium (Protonix Ec Tab) 40 mg PO 0600 [facility] Last Admin: 06/18/17 06:09 Dose: 40 mg - Constitutional Appears: Non-toxic, No Acute Distress - Head Exam Head Exam: ATRAUMATIC, NORMAL INSPECTION, NORMOCEPHALIC - Eye Exam Eye Exam: EOMI, Normal appearance - ENT Exam ENT Exam: Mucous Membranes Moist - Respiratory Exam Respiratory Exam: Clear to Ausculation Bilateral, NORMAL BREATHING PATTERN - Cardiovascular Exam Cardiovascular Exam: REGULAR RHYTHM, +S1, +S2 - GI/Abdominal Exam GI & Abdominal Exam: Soft, Tenderness (right lower quadrant), Normal Bowel Sounds - Extremities Exam Extremities Exam: Normal Inspection - Back Exam Back Exam: NORMAL INSPECTION - Neurological Exam Neurological Exam: Alert, Awake, Oriented x3 - Psychiatric Exam Psychiatric exam: Normal Affect, Normal Mood - Skin Skin Exam: Intact, Normal Color, Warm Assessment and Plan - Assessment and Plan (Free Text) Assessment: 36 year old female with PMhx of Asthma, DVT, HTN, and HLD presents with Right flank pain that radiates to abdomen Plan: Flank pain w/ radiation to abdomen (Acute) DDx: Nephrolithiais (radiolucent), Peptic Ulcer CT Abd/Pelvis: NEGATIVE UA: Trace Protein, Ketones, and Blood Urology Consult (Dr. Isma Chaves). Call Dr. Chaves regarding consult in the Morning. Fluids: NS @ 100mls/hr Pain Control: Morphine 2 IV Q4H for severe pain | Ibuprofen 600 Q6H for Mod. Pain will give pt muscle relaxer and see results of repeat UA dc w po iron Hx of Asthma (Chronic) Home Ventolin PRN HLD/HTN (Chronic) Patient states her PMD took her off her antihypertensive and anticholesterol medications. Proph Protonix Lovenox Patient discussed with Attending Dr. Lucia Armstrong PGY1"
[2017-06-18 08:48] LABS: ALB/GLOB RATIO 1.4 (1.1-1.8); ALBUMIN 3.5 g/dL (3.0-4.8); ALT/SGPT 64 U/L (7-56); AST/SGOT 52 U/L (14-36); BLOOD UREA NITROGEN 10 mg/dL (7-21); CALCIUM 8.8 mg/dL (8.4-10.5); GFR AFRICAN-AMERICAN > 60; GFR NON-AFRICAN AMERICAN > 60
[2017-06-18] MEDS ORDERED: Enoxaparin 40 mg Syringe SC SCH (10:00)
[2017-06-18] MEDS: Morphine 4 mg/ml ISec IVP PRN (11:25)
[2017-06-18 13:12] LABS: URINE BILIRUBIN NEGATIVE (NEGATIVE); URINE BLOOD TRACE-INTACT (NEGATIVE); URINE GLUCOSE (UA) NEGATIVE (NEGATIVE); URINE LEUKOCYTE ESTERASE NEGATIVE Leu/uL (NEGATIVE); URINE NITRATE NEGATIVE (NEGATIVE); URINE PROTEIN NEGATIVE mg/dL (<30 mg/dL); URINE UROBILINOGEN 0.2 E.U./dL (<1 E.U./dL)
[2017-06-18 13:13] LABS: URINE APPEARANCE CLEAR (CLEAR); URINE COLOR YELLOW (YELLOW)
[2017-06-18 14:12] LABS: URINE BACTERIA SMALL (NEG); URINE EPITHELIAL CELLS 0 - 2 /hpf (0-5); URINE RBC 0 - 2 /hpf (0-2); URINE WBC NEGATIVE /hpf (0-6)
--- NOTE | 2017-06-18 16:19 | CP.PCM.DIS ---
<Sami Armstrong - Last Filed: 06/18/17 17:47> Provider - Provider Date of Admission: 06/16/17 23:08 Attending physician: Sharlene Myers MD Primary care physician: Memo Myles MD Time Spent in preparation of Discharge (in minutes): 45 Diagnosis - Discharge Diagnosis (1) Flank pain Status: Acute Priority: Medium (2) Asthma Status: Chronic Priority: Medium Hospital Course - Lab Results Lab Results: Most Recent Lab Values WBC 4.7 10^3/ul (4.5-11.0) D 06/18/17 08:00 RBC 4.62 10^6/uL (3.5-6.1) 06/18/17 08:00 Hgb 10.0 g/dL (12.0-16.0) L 06/18/17 08:00 Hct 34.3 % (36.0-48.0) L 06/18/17 08:00 MCV 74.2 fl (80.0-105.0) L 06/18/17 08:00 MCH 21.6 pg (25.0-35.0) L 06/18/17 08:00 MCHC 29.2 g/dl (31.0-37.0) L 06/18/17 08:00 RDW 18.0 % (11.5-14.5) H 06/18/17 08:00 Plt Count 170 10^3/uL (120.0-450.0) 06/18/17 08:00 Gran % 42.1 % (50.0-68.0) L 06/18/17 08:00 Lymph % (Auto) 46.9 % (22.0-35.0) H 06/18/17 08:00 [place] % (Auto) 6.5 % (1.0-6.0) H 06/18/17 08:00 Eos % (Auto) 4.3 % (1.5-5.0) 06/18/17 08:00 Baso % (Auto) 0.2 % (0.0-3.0) 06/18/17 08:00 Gran # 1.96 (1.4-6.5) 06/18/17 08:00 Lymph # (Auto) 2.2 (1.2-3.4) 06/18/17 08:00 [place] # (Auto) 0.3 (0.1-0.6) 06/18/17 08:00 Eos # (Auto) 0.2 (0.0-0.7) 06/18/17 08:00 Baso # (Auto) 0.01 K/mm3 (0.0-2.0) 06/18/17 08:00 Sodium 143 mmol/L (132-148) 06/18/17 08:00 Potassium 4.2 mmol/L (3.6-5.0) 06/18/17 08:00 Chloride 109 mmol/L (98-107) H 06/18/17 08:00 Carbon Dioxide 25 mmol/L (21-33) 06/18/17 08:00 Anion Gap 13 (10-20) 06/18/17 08:00 BUN 10 mg/dL (7-21) 06/18/17 08:00 Creatinine 0.7 mg/dl (0.7-1.2) 06/18/17 08:00 Est GFR ( Amer) > 60 06/18/17 08:00 Est GFR (Non-Af Amer) > 60 06/18/17 08:00 Random Glucose 95 mg/dL (70-110) 06/18/17 08:00 Calcium 8.8 mg/dL (8.4-10.5) 06/18/17 08:00 Total Bilirubin 0.4 mg/dL (0.2-1.3) 06/18/17 08:00 AST 52 U/L (14-36) H D 06/18/17 08:00 ALT 64 U/L (7-56) H 06/18/17 08:00 Alkaline Phosphatase 50 U/L (38-126) 06/18/17 08:00 Total Protein 5.9 g/dL (5.8-8.3) 06/18/17 08:00 Albumin 3.5 g/dL (3.0-4.8) 06/18/17 08:00 Globulin 2.5 gm/dL 06/18/17 08:00 Albumin/Globulin Ratio 1.4 (1.1-1.8) 06/18/17 08:00 Lipase 72 U/L (23-300) 06/16/17 21:17 Urine Color Yellow (YELLOW) 06/18/17 12:08 Urine Appearance Clear (CLEAR) 06/18/17 12:08 Urine pH 7.0 (4.7-8.0) 06/18/17 12:08 Ur Specific [place] 1.010 (1.005-1.035) 06/18/17 12:08 Urine Protein Negative mg/dL (<30 mg/dL) 06/18/17 12:08 Urine Glucose (UA) Negative mg/dL (NEGATIVE) 06/18/17 12:08 Urine Ketones Negative mg/dL (NEGATIVE) 06/18/17 12:08 Urine Blood Trace-intact (NEGATIVE) H 06/18/17 12:08 Urine Nitrate Negative (NEGATIVE) 06/18/17 12:08 Urine Bilirubin Negative (NEGATIVE) 06/18/17 12:08 Urine Urobilinogen 0.2 E.U./dL (<1 E.U./dL) 06/18/17 12:08 Ur Leukocyte Esterase Negative Veronica/uL (NEGATIVE) 06/18/17 12:08 Urine RBC 0 - 2 /hpf (0-2) 06/18/17 12:08 Urine WBC Negative /hpf (0-6) 06/18/17 12:08 Ur Epithelial Cells 0 - 2 /hpf (0-5) 06/18/17 12:08 Urine Bacteria Small (NEG) 06/18/17 12:08 Urine Opiates Screen Positive (NEGATIVE) H 06/17/17 16:30 Urine Methadone Screen Negative (NEGATIVE) 06/17/17 16:30 Ur Barbiturates Screen Negative (NEGATIVE) 06/17/17 16:30 Ur Phencyclidine Scrn Negative (NEGATIVE) 06/17/17 16:30 Ur Amphetamines Screen Negative (NEGATIVE) 06/17/17 16:30 U Benzodiazepines Scrn Negative (NEGATIVE) 06/17/17 16:30 U Oth Cocaine Metabols Negative (NEGATIVE) 06/17/17 16:30 U Cannabinoids Screen Negative (NEGATIVE) 06/17/17 16:30 - Hospital Course Hospital Course: Patient is a 36 year old female with a past medical history of asthma and DVT during presenting with complains of right flank pain which radiated to right lower quadrant and right groin. Patient states that pain was present for the past two weeks and was similar but more intense that her ovarian cyst pain. CT of abdomen and pelvis, abdomen x-ray, as well as transvaginal ultrasound were performed which revealed no abnormalities. Patient was aware of these findings. Patient also did not have any significant lab abnormalities. Vital signs were normal throughout course of hospital stay. Discussed with patient the fact that no specific abnormalities were found on imaging or labs and that patient would be cleared for discharge pending urinalysis which was negative. Patient was in agreement with plan, and discharged. Case reviewed and discussed with Dr. Lucia Armstrong PGY1 Discharge Exam - Head Exam Head Exam: ATRAUMATIC, NORMAL INSPECTION, NORMOCEPHALIC - Eye Exam Eye Exam: EOMI, Normal appearance - ENT Exam ENT Exam: Mucous Membranes Moist - Neck Exam Neck exam: Normal Inspection - Respiratory Exam Respiratory Exam: Clear to PA & Lateral, NORMAL BREATHING PATTERN. absent: Rales, Rhonchi - Cardiovascular Exam Cardiovascular Exam: REGULAR RHYTHM, +S1, +S2 - GI/Abdominal Exam GI & Abdominal Exam: Normal Bowel Sounds, Unremarkable - Extremities Exam Extremities exam: normal inspection - Back Exam Back exam: NORMAL INSPECTION - Neurological Exam Neurological exam: Alert, Oriented x3 - Psychiatric Exam Psychiatric exam: Normal Affect, Normal Mood - Skin Skin Exam: Intact, Normal Color, Warm Discharge Plan - Discharge Medications Prescriptions: Cyclobenzaprine [Cyclobenzaprine HCl] 5 mg PO TID PRN #8 tab PRN Reason: Muscle Spasm - Follow Up Plan Condition: STABLE Disposition: HOME/ ROUTINE Instructions: Acute Abdomen (Belly Pain), Flu Vaccine Additional Instructions: 1. Please follow up with your primary care doctor within 3-5 days regarding this admission. 2. You will be prescribed muscle relaxers as previously discussed,only take if needed. 3. Please return to emergency department if your symptoms worsen or return. Referrals: Memo Myles [Primary Care Provider] - <Sharlene Myers - Last Filed: 06/18/17 18:32> Provider - Provider Date of Admission: 06/16/17 23:08 Attending physician: Sharlene Myers MD Primary care physician: Memo Myles MD Hospital Course - Lab Results Lab Results: Most Recent Lab Values WBC 4.7 10^3/ul (4.5-11.0) D 06/18/17 08:00 RBC 4.62 10^6/uL (3.5-6.1) 06/18/17 08:00 Hgb 10.0 g/dL (12.0-16.0) L 06/18/17 08:00 Hct 34.3 % (36.0-48.0) L 06/18/17 08:00 MCV 74.2 fl (80.0-105.0) L 06/18/17 08:00 MCH 21.6 pg (25.0-35.0) L 06/18/17 08:00 MCHC 29.2 g/dl (31.0-37.0) L 06/18/17 08:00 RDW 18.0 % (11.5-14.5) H 06/18/17 08:00 Plt Count 170 10^3/uL (120.0-450.0) 06/18/17 08:00 Gran % 42.1 % (50.0-68.0) L 06/18/17 08:00 Lymph % (Auto) 46.9 % (22.0-35.0) H 06/18/17 08:00 [place] % (Auto) 6.5 % (1.0-6.0) H 06/18/17 08:00 Eos % (Auto) 4.3 % (1.5-5.0) 06/18/17 08:00 Baso % (Auto) 0.2 % (0.0-3.0) 06/18/17 08:00 Gran # 1.96 (1.4-6.5) 06/18/17 08:00 Lymph # (Auto) 2.2 (1.2-3.4) 06/18/17 08:00 [place] # (Auto) 0.3 (0.1-0.6) 06/18/17 08:00 Eos # (Auto) 0.2 (0.0-0.7) 06/18/17 08:00 Baso # (Auto) 0.01 K/mm3 (0.0-2.0) 06/18/17 08:00 Sodium 143 mmol/L (132-148) 06/18/17 08:00 Potassium 4.2 mmol/L (3.6-5.0) 06/18/17 08:00 Chloride 109 mmol/L (98-107) H 06/18/17 08:00 Carbon Dioxide 25 mmol/L (21-33) 06/18/17 08:00 Anion Gap 13 (10-20) 06/18/17 08:00 BUN 10 mg/dL (7-21) 06/18/17 08:00 Creatinine 0.7 mg/dl (0.7-1.2) 06/18/17 08:00 Est GFR ( Amer) > 60 06/18/17 08:00 Est GFR (Non-Af Amer) > 60 06/18/17 08:00 Random Glucose 95 mg/dL (70-110) 06/18/17 08:00 Calcium 8.8 mg/dL (8.4-10.5) 06/18/17 08:00 Total Bilirubin 0.4 mg/dL (0.2-1.3) 06/18/17 08:00 AST 52 U/L (14-36) H D 06/18/17 08:00 ALT 64 U/L (7-56) H 06/18/17 08:00 Alkaline Phosphatase 50 U/L (38-126) 06/18/17 08:00 Total Protein 5.9 g/dL (5.8-8.3) 06/18/17 08:00 Albumin 3.5 g/dL (3.0-4.8) 06/18/17 08:00 Globulin 2.5 gm/dL 06/18/17 08:00 Albumin/Globulin Ratio 1.4 (1.1-1.8) 06/18/17 08:00 Lipase 72 U/L (23-300) 06/16/17 21:17 Urine Color Yellow (YELLOW) 06/18/17 12:08 Urine Appearance Clear (CLEAR) 06/18/17 12:08 Urine pH 7.0 (4.7-8.0) 06/18/17 12:08 Ur Specific [place] 1.010 (1.005-1.035) 06/18/17 12:08 Urine Protein Negative mg/dL (<30 mg/dL) 06/18/17 12:08 Urine Glucose (UA) Negative mg/dL (NEGATIVE) 06/18/17 12:08 Urine Ketones Negative mg/dL (NEGATIVE) 06/18/17 12:08 Urine Blood Trace-intact (NEGATIVE) H 06/18/17 12:08 Urine Nitrate Negative (NEGATIVE) 06/18/17 12:08 Urine Bilirubin Negative (NEGATIVE) 06/18/17 12:08 Urine Urobilinogen 0.2 E.U./dL (<1 E.U./dL) 06/18/17 12:08 Ur Leukocyte Esterase Negative Veronica/uL (NEGATIVE) 06/18/17 12:08 Urine RBC 0 - 2 /hpf (0-2) 06/18/17 12:08 Urine WBC Negative /hpf (0-6) 06/18/17 12:08 Ur Epithelial Cells 0 - 2 /hpf (0-5) 06/18/17 12:08 Urine Bacteria Small (NEG) 06/18/17 12:08 Urine Opiates Screen Positive (NEGATIVE) H 06/17/17 16:30 Urine Methadone Screen Negative (NEGATIVE) 06/17/17 16:30 Ur Barbiturates Screen Negative (NEGATIVE) 06/17/17 16:30 Ur Phencyclidine Scrn Negative (NEGATIVE) 06/17/17 16:30 Ur Amphetamines Screen Negative (NEGATIVE) 06/17/17 16:30 U Benzodiazepines Scrn Negative (NEGATIVE) 06/17/17 16:30 U Oth Cocaine Metabols Negative (NEGATIVE) 06/17/17 16:30 U Cannabinoids Screen Negative (NEGATIVE) 06/17/17 16:30 Attending/Attestation - Attestation I have personally seen and examined this patient.: Yes I have fully participated in the care of the patient.: Yes I have reviewed all pertinent clinical information, including history, physical exam and plan: Yes Notes (Text): I have seen and examined the patient at bedside. Agree with the above note with the following additions/ exception: Briefly this is 36 year old female with history of asthma, obesity, DVT during , iron deficiency anemia due to menorrhagia and family history of nehrolithiasis who was admitted for right flank pain which was radiating to groin. Denies any nausea, vomiting, vaginal discharge, appetite change, diarrhea or constipation. LMP was 2 weeks ago. She has irregular periods. UA, Abdomen xray, CT scan and TVUS were within normal limits. There is no leukocytosis or fever. Most likely pain was muscular. Patient was able to walk without any pain. She was given flexeril and advise her to take motrin. Recommend to have repeat LFTs in 2 weeks. If LFTs remain high, then patient will need liver ultrasound. Also advised her to follow up with Dr Myles. Dr Sharlene Myers
[2017-06-18 18:16] VITALS: BP 124/63; PULSE 64; TEMP 98; O2SAT 98
== END 2017-06-18 18:31 | disposition home or self-care (01) ==
LOC: ED 19:11 → ERH 23:08 → 5RSO 06-17 00:56
PROVIDERS: ADMIT Hospitalist; ATTEND Hospitalist
DX: R10.9 Unspecified abdominal pain (principal); N83.209 Unspecified ovarian cyst, unspecified side; K21.9 Gastro-esophageal reflux disease without esophagitis; J45.909 Unspecified asthma, uncomplicated; I10 Essential (primary) hypertension; E78.5 Hyperlipidemia, unspecified; N92.6 Irregular menstruation, unspecified; Z83.3 Family history of diabetes mellitus; Z82.49 Family history of ischemic heart disease and other diseases of the circulatory system; Z84.1 Family history of disorders of kidney and ureter; Z80.9 Family history of malignant neoplasm, unspecified
CPT/HCPCS: 36415; 74018; 74176; 76830; 80053; 80324; 80345; 80346; 80349; 80353; 80358; 80361; 81001; 83690; 83992; 85025; 87086; 96361; 96365; 96372; 96375; 96376; 99284; G0378; J1200; J1650; J1885; J2270; J2405; J3010; J7040

== ENCOUNTER 2017-11-19 21:45 | Observation (INO) | payer MEDICAID, OTHER ==
--- NOTE | 2017-11-19 22:33 | ED PDOC ---
Arrival/HPI - General Chief Complaint: Dizziness/Lightheaded Time Seen by Provider: 11/19/17 22:28 Historian: Patient - History of Present Illness Narrative History of Present Illness (Text): 11/19/17 22:28 37 year old female, whose past medical history includes asthma, DVT (During ), HLD/HTN (No longer on meds due to weight loss), presents to the emergency department complaining of dizziness that began yesterday. Patient describes the dizziness as a room spinning sensation which worsens with change of head position. Patient states she has trouble keeping her head up. She reports she never experienced this in the past. Patient also reports she fell and hit her head yesterday and is complaining of neck pain. She reports she was at [employer] 2 days ago, but did not go on any rides. Patient denies any ear ringing, vomiting, sore throat, or any other complaints. Time/Duration: 24 hours Symptom Onset: Sudden Symptom Course: Worsening Activities at Onset: Light Context: Home Past Medical History - Provider Review Nursing Documentation Reviewed: Yes - Past History Past History: No Previous - Infectious Disease Hx of Infectious Diseases: None - Cardiac Hx Pacemaker: No - Pulmonary Hx Respiratory Disorders: Yes Hx Asthma: Yes - Neurological Hx Neurological Disorder: No - HEENT Hx HEENT Disorder: No - Renal Hx Renal Disorder: No - Endocrine/Metabolic Hx Endocrine Disorders: No - Hematological/Oncological Hx Blood Transfusions: No - Integumentary Hx Dermatological Disorder: No - Musculoskeletal/Rheumatological Hx Musculoskeletal Disorders: No - Gastrointestinal Hx Gastrointestinal Disorders: No Hx Gastroesophageal Reflux: Yes - Genitourinary/Gynecological Hx Genitourinary Disorders: No Other/Comment: Fibroids - Psychiatric Hx Emotional Abuse: No Hx Physical Abuse: No Hx Substance Use: No - Surgical History Hx Section: Yes (x2) Hx Cholecystectomy: Yes - Anesthesia Hx Anesthesia: Yes Hx Anesthesia Reactions: No Hx Malignant Hyperthermia: No - Suicidal Assessment Feels Threatened In Home Enviroment: No Family/Social History - Physician Review Nursing Documentation Reviewed: Yes Family/Social History: No Known Family HX Smoking Status: Never Smoked Hx Alcohol Use: No Hx Substance Use: No Hx Substance Use Treatment: No Allergies/Home Meds Allergies/Adverse Reactions: Allergies iodine Allergy (Severe, Verified 04/04/17 16:06) ANAPHYLAXIS latex Allergy (Verified 06/17/17 20:47) ITCHING Home Medications: Home Meds Medication Instructions Recorded Confirmed Albuterol HFA [Ventolin HFA 90 1 puff IH PRN PRN 04/04/17 11/19/17 mcg/actuation (8 g)] Review of Systems - Physician Review All systems were reviewed & negative as marked: Yes - Review of Systems ENT: absent: Hearing Changes, Sore Throat, Other ((-) ear pain, or ear ringing) Gastrointestinal: Nausea. absent: Vomiting Musculoskeletal: Neck Pain Neurological: Dizziness Physical Exam - Physical Exam Narrative Physical Exam (Text): Gen: VS reviewed, alert, well developed, well nourished, nontoxic, mild distress. ENT: normal pharynx. Eye: EOMI, PERRL. No Nystamgmus Neck: no JVD, supple, no adenopathy. CV: regular rate, regular rhythm, no rubs, no murmur, no gallops, S1, S2, pulses equal and strong. Pulm: no distress, clear to auscultation, no wheeze, no rhonchi, breath sounds equal, no rales. Abd: soft, nontender, no guarding, no rebound, no rigidity, normal bowel sounds. Ext: no edema. Skin: good color, no rash, no cyanosis. Psych: responds appropriately to questions, normal affect. Neuro: oriented x 3, CN2-12 intact grossly, motor intact, sensation intact. Normal finger nose bilaterally and heal to arce. Vital Signs Reviewed: Yes Vital Signs Temp Pulse Resp BP Pulse Ox 11/19/17 22:07 98.4 F 69 18 168/90 H 99 Temperature: Afebrile Blood Pressure: Hypertensive Pulse: Regular Respiratory Rate: Normal Appearance: Positive for: Well-Appearing, Non-Toxic, Comfortable Pain Distress: None Mental Status: Positive for: Alert and Oriented X 3 Medical Decision Making ED Course and Treatment: 11/19/17 22:28 Impression: 37 year old female presents complaining of dizziness associated with nausea that began yesterday. Patient also is complaining of neck pain s/p fall and hit her head yesterday Plan: -- CT Head w.o Contrast -- EKG -- Antivert, Zofran Inj -- POC Urine Test. -- Reassess and disposition Prior Visits: Notes and results from previous visits were reviewed. Progress Notes: 11/19/17 22:13 EKG shows NSR at 68 BPM with normal QRS. Normal axis. No acute ST/T wave abnormality. Interpreted by me. EXAM: CT Head Without Intravenous Contrast Dictated and Authenticated by: Leann Castillo MD 11/19/2017 11:50 PM IMPRESSION: No acute findings. 11/20/17 00:03 Patient reevaluated. Patient states she still feels dizziness and nausea. Will remedicate and reassess. 11/20/17 01:50 patient still feels dizzy and persistent vertiginous, patient cannot ambulate due to this disabling symptoms. will admit for further eval, rule out vertebrobasilar insufficiency 11/20/17 01:57 case discussed with admitting resident, admit to Dr. Sina Meyrs 11/20/17 02:[address] Sina Myers who is aware and agrees with the plan. Accepts patient into hospitalist service. - Lab Interpretations Lab Results: 11/20/17 00:45 11/20/17 00:45 Lab Results 11/20/17 00:45: Sodium 143, Potassium 3.7, Chloride 105, Carbon Dioxide 26, Anion Gap 16, BUN 10, Creatinine 0.7, Est GFR ( Amer) > 60, Est GFR (Non- Af Amer) > 60, Random Glucose 86, Calcium 9.1, Magnesium 1.8, Total Bilirubin 0.2, AST 20, ALT 19, Alkaline Phosphatase 60, Total Protein 6.5, Albumin 3.9, Globulin 2.6, Albumin/Globulin Ratio 1.5 11/20/17 00:45: WBC 9.1 D, RBC 5.21, Hgb 11.4 L, Hct 37.3, MCV 71.6 L, MCH 21.9 L, MCHC 30.6 L, RDW 17.3 H, Plt Count 178, Gran % 48.8 L, Lymph % (Auto) 41.4 H, [place] % (Auto) 6.8 H, Eos % (Auto) 2.7, Baso % (Auto) 0.3, Gran # 4.45, Lymph # (Auto) 3.8 H, [place] # (Auto) 0.6, Eos # (Auto) 0.3, Baso # (Auto) 0.03 - RAD Interpretation Radiology Orders: 11/19/17 22:38 Brain [HEAD W/O CONTRAST] [CT] Stat - EKG Interpretation Interpreted by ED Physician: Yes Type: 12 lead EKG - Medication Orders Current Medication Orders: Discontinued Medications Diazepam (Valium) 5 mg PO ONCE ONE PRN Reason: Protocol Stop: 11/20/17 00:01 Last Admin: 11/20/17 00:52 Dose: 5 mg Meclizine HCl (Antivert) 25 mg PO STAT STA Stop: 11/19/17 22:39 Last Admin: 11/19/17 23:00 Dose: 25 mg Ondansetron HCl (Zofran Inj) 4 mg IVP STAT STA Stop: 11/19/17 22:39 Last Admin: 11/19/17 23:00 Dose: 4 mg IVP Administration Document 11/19/17 23:00 JOL (Rec: 11/19/17 23:42 JOL [id number]) Charges for Administration # of IVP Administrations 1 Ondansetron HCl (Zofran Inj) 4 mg IVP STAT STA Stop: 11/20/17 00:03 Last Admin: 11/20/17 00:52 Dose: 4 mg IVP Administration Document 11/20/17 00:52 JOL (Rec: 11/20/17 00:52 JOL [id number]) Charges for Administration # of IVP Administrations 1 - Scribe Statement The provider has reviewed the documentation as recorded by the Jaren Raines Provider Scribe Attestation: All medical record entries made by the Jaren were at my direction and personally dictated by me. I have reviewed the chart and agree that the record accurately reflects my personal performance of the history, physical exam, medical decision making, and the department course for this patient. I have also personally directed, reviewed, and agree with the discharge instructions and disposition. Disposition/Present on Arrival - Present on Arrival Any Indicators Present on Arrival: No History of DVT/PE: Yes History of Uncontrolled Diabetes: No Urinary Catheter: No History of Decub. Ulcer: No History Surgical Site Infection Following: None - Disposition Have Diagnosis and Disposition been Completed?: Yes Diagnosis: Vertigo Disposition: HOSPITALIZED Disposition Time: 01:58 Patient Plan: Observation Patient Problems: Current Active Problems Problem Status Onset Vertigo Acute Condition: STABLE
[2017-11-20 00:54] LABS: BASO # 0.03 K/mm3 (0.0-2.0); BASO % 0.3 % (0.0-3.0); EOS # 0.3 (0.0-0.7); EOS % 2.7 % (1.5-5.0); GRAN # 4.45 (1.4-6.5); GRAN % 48.8 % (50.0-68.0); HEMOGLOBIN 11.4 g/dL (12.0-16.0); LYMPH # 3.8 (1.2-3.4); LYMPH % 41.4 % (22.0-35.0); MEAN CELL VOLUME 71.6 fl (80.0-105.0); MEAN CORPUSCULAR HEMOGLOBIN 21.9 pg (25.0-35.0); MEAN CORPUSCULAR HGB CONC 30.6 g/dl (31.0-37.0); MONO # 0.6 (0.1-0.6); MONO % 6.8 % (1.0-6.0); PLATELET COUNT 178 10^3/uL (120.0-450.0); RBC 5.21 10^6/uL (3.5-6.1); RED CELL DISTRIBUTION WIDTH 17.3 % (11.5-14.5); WHITE BLOOD COUNT 9.1 10^3/ul (4.5-11.0)
[2017-11-20 01:07] LABS: ALB/GLOB RATIO 1.5 (1.1-1.8); ALBUMIN 3.9 g/dL (3.0-4.8); ALT/SGPT 19 U/L (7-56); AST/SGOT 20 U/L (14-36); BLOOD UREA NITROGEN 10 mg/dL (7-21); CALCIUM 9.1 mg/dL (8.4-10.5); GFR AFRICAN-AMERICAN > 60; GFR NON-AFRICAN AMERICAN > 60
--- NOTE | 2017-11-20 02:30 | CP.PCM.HP ---
<Johan Bolton - Last Filed: 11/20/17 03:56> History of Present Illness - History of Present Illness History of Present Illness: Johan Bolton DO PGY1 Internal Medicine Inter - Hospital H&P Note CC: Dizziness / Vertigo HPI: 37F PMH of asthma, HTN, HLD, DVT in the setting of presented [place] [facility] on [place] with a chief complaint of dizziness x1 day. Patient reported that she woke up on Monday with the sensation of the room spinning and subsequently fell due to dizziness. She denies any bowel/ bladder incontinence, tongue biting, chest pain or palpitations associated w/ the fall. Dizziness is associated w/ nausea and worsened with sitting up and turning head. Sensation still occurs when patient closes eyes; has been associated w/ Nausea w/o any episodes of vomit. Upon ROS patient complains of Abd pain and ARELLANO. Remainder of 12 system ROS is otherwise unremarkable. PMH: HTN, HLD, DVT (during ), PSH: Cholecystectomy PMD: Dr. Shar [place], [place] Social: Denies etoh, smoking, illicit drug use Home Rx: Albuterol PRN In the ED: VS w/ elevated BP 168/90; remainder vitals stable CBC - wnl CMP - wnl Given Antivert Present on Admission - Present on Admission Any Indicators Present on Admission: Yes History of DVT/PE: Yes Past Patient History - Infectious Disease Hx of Infectious Diseases: None - Past Social History Smoking Status: Never Smoked - CARDIAC Hx Pacemaker: No - PULMONARY Hx Respiratory Disorders: Yes Hx Asthma: Yes - NEUROLOGICAL Hx Neurological Disorder: No - HEENT Hx HEENT Problems: No - RENAL Hx Chronic Kidney Disease: No - ENDOCRINE/METABOLIC Hx Endocrine Disorders: No - HEMATOLOGICAL/ONCOLOGICAL Hx Blood Transfusions: No - INTEGUMENTARY Hx Dermatological Problems: No - MUSCULOSKELETAL/RHEUMATOLOGICAL Hx Musculoskeletal Disorders: No - GASTROINTESTINAL Hx Gastrointestinal Disorders: No Hx Gastroesophageal Reflux: Yes - GENITOURINARY/GYNECOLOGICAL Hx Genitourinary Disorders: No Other/Comment: Fibroids - PSYCHIATRIC Hx Emotional Abuse: No Hx Physical Abuse: No Hx Substance Use: No - SURGICAL HISTORY Hx Section: Yes (x2) Hx Cholecystectomy: Yes - ANESTHESIA Hx Anesthesia: Yes Hx Anesthesia Reactions: No Hx Malignant Hyperthermia: No Meds Allergies/Adverse Reactions: Allergies Allergy/AdvReac Type Severity Reaction Status Date / Time iodine Allergy Severe ANAPHYLAXIS Verified 04/04/17 16:06 latex Allergy ITCHING Verified 06/17/17 20:47 Physical Exam - Constitutional Appears: Well, No Acute Distress - Head Exam Head Exam: ATRAUMATIC, NORMOCEPHALIC - Eye Exam Eye Exam: EOMI, PERRL. absent: Scleral icterus - ENT Exam ENT Exam: Mucous Membranes Moist - Respiratory Exam Respiratory Exam: Clear to Auscultation Bilateral, NORMAL BREATHING PATTERN. absent: Rhonchi, Wheezes - Cardiovascular Exam Cardiovascular Exam: REGULAR RHYTHM, RRR, +S1, +S2 - GI/Abdominal Exam GI & Abdominal Exam: Normal Bowel Sounds, Soft, Tenderness (LLQ) - Extremities Exam Extremities exam: Positive for: pedal pulses present (2+ TP/DP). Negative for: tenderness - Neurological Exam Neurological exam: Alert, CN II-XII Intact, Oriented x3 Additional comments: Quinby hallpike manuver positive; Localizes to the left. BL UE/LE gross strength 5/5 Sensation BL UE/LE intact - Psychiatric Exam Psychiatric exam: Normal Affect, Normal Mood - Skin Skin Exam: Dry, Intact, Warm Results - Vital Signs Recent Vital Signs: Last Vital Signs Temp 98.4 F 11/19/17 22:07 Pulse 69 11/19/17 22:07 Resp 18 11/19/17 22:07 BP 168/90 H 11/19/17 22:07 Pulse Ox 99 11/19/17 22:07 - Labs Result Diagrams: 11/20/17 00:45 11/20/17 00:45 Labs: Laboratory Results - last 24 hr 11/20/17 11/20/17 00:45 00:45 WBC 9.1 D RBC 5.21 Hgb 11.4 L Hct 37.3 MCV 71.6 L MCH 21.9 L MCHC 30.6 L RDW 17.3 H Plt Count 178 Gran % 48.8 L Lymph % (Auto) 41.4 H [place] % (Auto) 6.8 H Eos % (Auto) 2.7 Baso % (Auto) 0.3 Gran # 4.45 Lymph # (Auto) 3.8 H [place] # (Auto) 0.6 Eos # (Auto) 0.3 Baso # (Auto) 0.03 Sodium 143 Potassium 3.7 Chloride 105 Carbon Dioxide 26 Anion Gap 16 BUN 10 Creatinine 0.7 Est GFR ( Amer) > 60 Est GFR (Non-Af Amer) > 60 Random Glucose 86 Calcium 9.1 Magnesium 1.8 Total Bilirubin 0.2 AST 20 ALT 19 Alkaline Phosphatase 60 Total Protein 6.5 Albumin 3.9 Globulin 2.6 Albumin/Globulin Ratio 1.5 Assessment & Plan - Assessment and Plan (Free Text) Assessment: 37F PMH of asthma, HTN, HLD, DVT in the setting of presented to [facility] on [place] with a chief complaint of dizziness x1 day. Given that the sensation is reproducible and worsened w/ head movement; most likely BPPV. Vertigo: CT Head negative. r/o MS - MRA head noncon pending UA / UTox pending Follow uCBC / CMP in AM Given antivert 25mg in ED; c/w antivert 25mg PRN PT Eval/ Pt. education for BPPV [facility] Neurochecks Neuro Consulted LLQ Pain Has history of fibroid and ovarian cysts; Patient is 2/3 days post menstruation; states that pains are not new Pelvic US ordered. Tylenol 650mg PRN pain Hx HTN Pressure elevated in ED; No home RX Continue monitoring inpatient; f/u w/ PMD outpatient Hx HLD No Home rx Lipid panel pending GI/DVT PPx- Pepcid/ Lovenox Case was seen and discussed with attending Dr. Lucia Bolton DO - PGY1 Internal Medicine [employer] - Date & Time Date: 11/20/17 Time: 03:39 <Odell Myers - Last Filed: 11/20/17 23:51> Results - Vital Signs Recent Vital Signs: Last Vital Signs Temp 99.0 F 11/20/17 18:00 Pulse 64 11/20/17 18:00 Resp 20 11/20/17 18:00 BP 103/61 11/20/17 18:00 Pulse Ox 96 11/20/17 18:00 - Labs Result Diagrams: 11/20/17 06:00 11/20/17 06:00 Labs: Laboratory Results - last 24 hr 11/20/17 11/20/17 11/20/17 05:10 06:00 06:00 WBC 10.3 RBC 5.00 Hgb 10.8 L Hct 36.1 MCV 72.2 L MCH 21.6 L MCHC 29.9 L RDW 17.4 H Plt Count 166 Gran % 47.6 L Lymph % (Auto) 42.1 H [place] % (Auto) 7.5 H Eos % (Auto) 2.6 Baso % (Auto) 0.2 Gran # 4.89 Lymph # (Auto) 4.3 H [place] # (Auto) 0.8 H Eos # (Auto) 0.3 Baso # (Auto) 0.02 Sodium 141 Potassium 3.7 Chloride 107 Carbon Dioxide 25 Anion Gap 13 BUN 11 Creatinine 0.8 Est GFR ( Amer) > 60 Est GFR (Non-Af Amer) > 60 Random Glucose 98 Calcium 8.6 Total Bilirubin 0.3 AST 17 ALT 31 Alkaline Phosphatase 58 Troponin I Total Protein 6.2 Albumin 3.7 Globulin 2.5 Albumin/Globulin Ratio 1.5 Triglycerides Cholesterol LDL Cholesterol Direct HDL Cholesterol Urine Color Yellow Urine Appearance Clear Urine pH 6.0 Ur Specific [place] 1.025 Urine Protein Negative Urine Glucose (UA) Negative Urine Ketones Negative Urine Blood Negative Urine Nitrate Negative Urine Bilirubin Negative Urine Urobilinogen 0.2 Ur Leukocyte Esterase Negative 11/20/17 11/20/17 11/20/17 06:00 08:30 14:05 WBC RBC Hgb Hct MCV MCH MCHC RDW Plt Count Gran % Lymph % (Auto) [place] % (Auto) Eos % (Auto) Baso % (Auto) Gran # Lymph # (Auto) [place] # (Auto) Eos # (Auto) Baso # (Auto) Sodium Potassium Chloride Carbon Dioxide Anion Gap BUN Creatinine Est GFR ( Amer) Est GFR (Non-Af Amer) Random Glucose Calcium Total Bilirubin AST ALT Alkaline Phosphatase Troponin I < 0.01 < 0.01 Total Protein Albumin Globulin Albumin/Globulin Ratio Triglycerides 102 Cholesterol 185 LDL Cholesterol Direct 135 H HDL Cholesterol 40 Urine Color Urine Appearance Urine pH Ur Specific [place] Urine Protein Urine Glucose (UA) Urine Ketones Urine Blood Urine Nitrate Urine Bilirubin Urine Urobilinogen Ur Leukocyte Esterase 11/20/17 20:38 WBC RBC Hgb Hct MCV MCH MCHC RDW Plt Count Gran % Lymph % (Auto) [place] % (Auto) Eos % (Auto) Baso % (Auto) Gran # Lymph # (Auto) [place] # (Auto) Eos # (Auto) Baso # (Auto) Sodium Potassium Chloride Carbon Dioxide Anion Gap BUN Creatinine Est GFR ( Amer) Est GFR (Non-Af Amer) Random Glucose Calcium Total Bilirubin AST ALT Alkaline Phosphatase Troponin I < 0.01 Total Protein Albumin Globulin Albumin/Globulin Ratio Triglycerides Cholesterol LDL Cholesterol Direct HDL Cholesterol Urine Color Urine Appearance Urine pH Ur Specific [place] Urine Protein Urine Glucose (UA) Urine Ketones Urine Blood Urine Nitrate Urine Bilirubin Urine Urobilinogen Ur Leukocyte Esterase
[2017-11-20 03:02] VITALS: RESP 20
[2017-11-20 03:46] VITALS: BMI 35.0
[2017-11-20 05:30] LABS: URINE BILIRUBIN NEGATIVE (NEGATIVE); URINE BLOOD NEGATIVE (NEGATIVE); URINE GLUCOSE (UA) NEGATIVE (NEGATIVE); URINE LEUKOCYTE ESTERASE NEGATIVE Leu/uL (NEGATIVE); URINE PROTEIN NEGATIVE mg/dL (<30 mg/dL); URINE UROBILINOGEN 0.2 E.U./dL (<1 E.U./dL)
[2017-11-20 05:35] LABS: URINE APPEARANCE CLEAR (CLEAR); URINE COLOR YELLOW (YELLOW)
[2017-11-20 06:39] LABS: BASO # 0.02 K/mm3 (0.0-2.0); BASO % 0.2 % (0.0-3.0); EOS # 0.3 (0.0-0.7); EOS % 2.6 % (1.5-5.0); GRAN # 4.89 (1.4-6.5); GRAN % 47.6 % (50.0-68.0); HEMOGLOBIN 10.8 g/dL (12.0-16.0); LYMPH # 4.3 (1.2-3.4); LYMPH % 42.1 % (22.0-35.0); MEAN CELL VOLUME 72.2 fl (80.0-105.0); MEAN CORPUSCULAR HEMOGLOBIN 21.6 pg (25.0-35.0); MEAN CORPUSCULAR HGB CONC 29.9 g/dl (31.0-37.0); MONO # 0.8 (0.1-0.6); MONO % 7.5 % (1.0-6.0); PLATELET COUNT 166 10^3/uL (120.0-450.0); RED CELL DISTRIBUTION WIDTH 17.4 % (11.5-14.5); WHITE BLOOD COUNT 10.3 10^3/ul (4.5-11.0)
[2017-11-20 07:20] LABS: ALB/GLOB RATIO 1.5 (1.1-1.8); ALBUMIN 3.7 g/dL (3.0-4.8); ALT/SGPT 31 U/L (7-56); AST/SGOT 17 U/L (14-36); BLOOD UREA NITROGEN 11 mg/dL (7-21); CALCIUM 8.6 mg/dL (8.4-10.5); GFR AFRICAN-AMERICAN > 60; GFR NON-AFRICAN AMERICAN > 60
[2017-11-20 07:41] LABS: HDL CHOLESTEROL 40 mg/dL (29-60)
[2017-11-20 07:51] LABS: LDL CHOLESTEROL 135 mg/dL (0-129)
--- NOTE | 2017-11-20 09:21 | CARD ---
APPROVED REPORT Date of service: 11/19/2017 EKG Measurement Heart [id number] <Conclusion> Normal sinus rhythm Normal ECG
--- NOTE | 2017-11-20 09:50 | CT ---
Date of service: 11/19/2017 PROCEDURE: CT HEAD WITHOUT CONTRAST. HISTORY: trauma COMPARISON: None available. TECHNIQUE: Axial computed tomography images were obtained through the head/brain without intravenous contrast. Radiation dose: Total exam DLP = 881 mGy-cm. This CT exam was performed using one or more of the following dose reduction techniques: Automated exposure control, adjustment of the mA and/or kV according to patient size, and/or use of iterative reconstruction technique. FINDINGS: HEMORRHAGE: No intracranial hemorrhage. BRAIN: No mass effect or edema. No atrophy or chronic microvascular ischemic changes. VENTRICLES: Unremarkable. No hydrocephalus. CALVARIUM: Unremarkable. PARANASAL SINUSES: Unremarkable as visualized. No significant inflammatory changes. MASTOID AIR CELLS: Unremarkable as visualized. No inflammatory changes. OTHER FINDINGS: The report concurs with the preliminary [facility] report IMPRESSION: No acute findings
[2017-11-20] MEDS: Enoxaparin 40 mg Syringe SC SCH (10:06)
[2017-11-20] MEDS ORDERED: Albuterol HFA 90 mcg/actuation (8 g) IH PRN ×2 (10:06→10:26)
[2017-11-20] MEDS ORDERED: Albuterol 0.083% Inhal Sol (2.5 mg/3 mL) UD IH PRN (10:29)
--- NOTE | 2017-11-20 12:46 | US ---
Date of service: 11/20/2017 HISTORY: LLQ pain COMPARISON: 06/17/2017 TECHNIQUE: FINDINGS: UTERUS: Measures 12.0 x 5.3 x 6 cm. Normal in size and appearance. No fibroid or other mass lesion seen. ENDOMETRIUM: Measures 13 mm in diameter. Unremarkable. CERVIX: No cervical abnormality identified. RIGHT OVARY: Measures 3.5 x 2.5 x 2.8 cm. No solid mass. Normal flow. LEFT OVARY: Measures 2.7 x 2.5 x 3 cm. No solid mass. Normal flow. FREE FLUID: No significant free fluid noted. OTHER FINDINGS: None. IMPRESSION: Unremarkable pelvic ultrasound.
--- NOTE | 2017-11-20 15:29 | CP.PCM.CON ---
History of Present Illness - History of Present Illness History of Present Illness: Phil Vallecillo PGY2 - Neurology Consult Note for Dr. Cage HPI: 37 year old female with past medical history of HTN, HLD, DVT with who presented to [facility] ED complaining of one day history of dizziness. Patient reports symptoms of room spinning, blurry vision, and gait instability. Patient indicates she had a fall prior to presentation secondary to visual symptoms, patient indicates she fell on the back of her head. Patient denies LOC , nausea, vomiting, loss of urine or bowel, biting of tongue. She denies any previous episodes of dizziness or diagnosis of vertigo. She indicates medication given to her while in hospital have been ineffective in treating her symptoms. She denies changes in vision, headache, focal weakness, numbness, memory loss or gaps in timeline. PMH: HTN, HLD, DVT provoked secondary to PSH: Cholecystectomy SOCHX: Tobacco: denies, ETOH: Denies, ID: Denies ALL: Iodine, Latex MEds: Albuterol Review of Systems - Review of Systems All systems: reviewed and no additional remarkable complaints except (as mentioned in HPI) Past Patient History - Infectious Disease Hx of Infectious Diseases: None - Past Social History Smoking Status: Never Smoked Alcohol: None Drugs: Denies Home Situation {Lives}: With Family - CARDIAC Hx Cardiac Disorders: Yes Hx Hypertension: Yes - PULMONARY Hx Respiratory Disorders: Yes Hx Asthma: Yes - NEUROLOGICAL Hx Neurological Disorder: No - HEENT Hx HEENT Problems: No - RENAL Hx Chronic Kidney Disease: No - ENDOCRINE/METABOLIC Hx Endocrine Disorders: No - HEMATOLOGICAL/ONCOLOGICAL Hx Blood Transfusions: No - INTEGUMENTARY Hx Dermatological Problems: No - MUSCULOSKELETAL/RHEUMATOLOGICAL Hx Musculoskeletal Disorders: No - GASTROINTESTINAL Hx Gastrointestinal Disorders: No Hx Gastroesophageal Reflux: Yes - GENITOURINARY/GYNECOLOGICAL Hx Genitourinary Disorders: No Other/Comment: Fibroids - PSYCHIATRIC Hx Emotional Abuse: No Hx Physical Abuse: No Hx Substance Use: No - SURGICAL HISTORY Hx Section: Yes (x2) Hx Cholecystectomy: Yes - ANESTHESIA Hx Anesthesia: Yes Hx Anesthesia Reactions: No Hx Malignant Hyperthermia: No Meds Allergies/Adverse Reactions: Allergies Allergy/AdvReac Type Severity Reaction Status Date / Time iodine Allergy Severe ANAPHYLAXIS Verified 04/04/17 16:06 latex Allergy ITCHING Verified 06/17/17 20:47 - Medications Medications: Current Medications Acetaminophen (Tylenol 325mg Tab) 650 mg PO Q6H PRN PRN Reason: Pain, Mild (1-3) Albuterol Sulfate (Albuterol 0.083% Inhal Yana (2.5 Mg/3 Ml) Ud) 2.5 mg IH [id number] PRN PRN Reason: Cough and congestion Aspirin (Aspirin Chewable) 81 mg PO DAILY [facility] Enoxaparin Sodium (Lovenox) 40 mg SC DAILY ERIC PRN Reason: Protocol Last Admin: 11/20/17 10:06 Dose: 40 mg Famotidine (Pepcid) 40 mg PO DAILY [facility] Last Admin: 11/20/17 10:06 Dose: 40 mg Meclizine HCl (Antivert) 25 mg PO Q8H [facility] Last Admin: 11/20/17 13:06 Dose: 25 mg Ondansetron HCl (Zofran Inj) 4 mg IVP Q6H PRN PRN Reason: Nausea/Vomiting Physical Exam - Constitutional Appears: No Acute Distress - Head Exam Head Exam: ATRAUMATIC, NORMAL INSPECTION, NORMOCEPHALIC - Eye Exam Eye Exam: EOMI, Nystagmus (mild leftward and rightward gaze ), PERRL - ENT Exam ENT Exam: Mucous Membranes Moist - Respiratory Exam Respiratory Exam: Clear to Auscultation Bilateral, NORMAL BREATHING PATTERN - Cardiovascular Exam Cardiovascular Exam: REGULAR RHYTHM, +S1, +S2 - GI/Abdominal Exam GI & Abdominal Exam: Normal Bowel Sounds, Soft. absent: Tenderness - Extremities Exam Extremities exam: Positive for: pedal pulses present. Negative for: calf tenderness, pedal edema - Neurological Exam Neurological exam: Alert, CN II-XII Intact, Oriented x3 Additional comments: AAOx3 No sign of dysmetria, coordination intact Strength 5/5 in UE and LE b/l Heel to arce appropriate bilateral Sensory intact bilaterally Gait - able to walk with mild assistance at times - Psychiatric Exam Psychiatric exam: Normal Affect, Normal Mood - Skin Skin Exam: Dry, Intact Results - Vital Signs Recent Vital Signs: Last Vital Signs Temp 97.3 F L 11/20/17 08:17 Pulse 67 11/20/17 14:00 Resp 20 11/20/17 08:17 BP 134/71 11/20/17 08:17 Pulse Ox 98 11/20/17 08:17 - Labs Result Diagrams: 11/20/17 06:00 11/20/17 06:00 Labs: Laboratory Results - last 24 hr 11/20/17 11/20/17 11/20/17 05:10 06:00 06:00 WBC 10.3 RBC 5.00 Hgb 10.8 L Hct 36.1 MCV 72.2 L MCH 21.6 L MCHC 29.9 L RDW 17.4 H Plt Count 166 Gran % 47.6 L Lymph % (Auto) 42.1 H [place] % (Auto) 7.5 H Eos % (Auto) 2.6 Baso % (Auto) 0.2 Gran # 4.89 Lymph # (Auto) 4.3 H [place] # (Auto) 0.8 H Eos # (Auto) 0.3 Baso # (Auto) 0.02 Sodium 141 Potassium 3.7 Chloride 107 Carbon Dioxide 25 Anion Gap 13 BUN 11 Creatinine 0.8 Est GFR ( Amer) > 60 Est GFR (Non-Af Amer) > 60 Random Glucose 98 Calcium 8.6 Total Bilirubin 0.3 AST 17 ALT 31 Alkaline Phosphatase 58 Troponin I Total Protein 6.2 Albumin 3.7 Globulin 2.5 Albumin/Globulin Ratio 1.5 Triglycerides Cholesterol LDL Cholesterol Direct HDL Cholesterol Urine Color Yellow Urine Appearance Clear Urine pH 6.0 Ur Specific [place] 1.025 Urine Protein Negative Urine Glucose (UA) Negative Urine Ketones Negative Urine Blood Negative Urine Nitrate Negative Urine Bilirubin Negative Urine Urobilinogen 0.2 Ur Leukocyte Esterase Negative 11/20/17 11/20/17 11/20/17 06:00 08:30 14:05 WBC RBC Hgb Hct MCV MCH MCHC RDW Plt Count Gran % Lymph % (Auto) [place] % (Auto) Eos % (Auto) Baso % (Auto) Gran # Lymph # (Auto) [place] # (Auto) Eos # (Auto) Baso # (Auto) Sodium Potassium Chloride Carbon Dioxide Anion Gap BUN Creatinine Est GFR ( Amer) Est GFR (Non-Af Amer) Random Glucose Calcium Total Bilirubin AST ALT Alkaline Phosphatase Troponin I < 0.01 < 0.01 Total Protein Albumin Globulin Albumin/Globulin Ratio Triglycerides 102 Cholesterol 185 LDL Cholesterol Direct 135 H HDL Cholesterol 40 Urine Color Urine Appearance Urine pH Ur Specific [place] Urine Protein Urine Glucose (UA) Urine Ketones Urine Blood Urine Nitrate Urine Bilirubin Urine Urobilinogen Ur Leukocyte Esterase Assessment & Plan - Assessment and Plan (Free Text) Assessment: 37 year old female with past medical history of HTN, HLD, provoked DVT presnting with dizziness. Patient found to have positive [place]-Hallpike maneuver on exam and Head CT negative for acute intracranial abnormalities. Patient admitted to medical surgery floor for further evaluation. Plan: Dizziness - Etiology likely BPPV - Positive Hetal-Hallpike - Positive supine lateral head turn - CT Head: no acute intracranial findings - Carotid US pending final report - MRA and MRI unable to preform 2/2 claustrophobia - Will reorder MRA and MRI without contrast with sedating medication - PT eval - Antivert 25mg given, placed on scheduled meclizine Case and plan discussed with attending, Dr. Niles Vallecillo PGY2 - Date & Time Date: 11/20/17 Time: 10:31
--- NOTE | 2017-11-20 16:52 | US ---
PROCEDURE: Bilateral carotid artery duplex ultrasound HISTORY: Carotid stenosis dizziness PHYSICIAN(S): Kevan Fields MD. TECHNIQUE: Duplex sonography and color-flow Doppler were used to evaluate the carotid bifurcations and limited segments of the vertebral arteries bilaterally. FINDINGS: There is mild smooth hypoechoic plaque noted at the carotid bifurcations bilaterally. The peak systolic velocity in the proximal right internal carotid artery is 96 cm/sec. This corresponds to a 0-19 percent proximal right ICA stenosis. Normal systolic velocities are noted in the proximal right external carotid artery. There is antegrade flow in the right vertebral artery. The peak systolic velocity in the proximal left internal carotid artery is 93 cm/sec. This corresponds to a 0-19 percent proximal left ICA stenosis. Normal systolic velocities are noted in the proximal left external carotid artery. There is antegrade flow in the left vertebral artery. IMPRESSION: 1. Bilateral 0-19% proximal ICA stenoses. 2. Antegrade flow in both vertebral arteries.
--- NOTE | 2017-11-20 16:53 | US ---
HISTORY: Leg pain and swelling. Evaluate for DVT PHYSICIAN(S): Kevan Fields MD. TECHNIQUE: Duplex sonography and color-flow Doppler with graded compression were used to evaluate the deep venous systems of both lower extremities. FINDINGS: The visualized deep venous systems of both lower extremities are sonographically normal and compressible. Normal wave forms and augmentation are seen. There is no sonographic evidence for deep venous thrombosis in the visualized segments of both lower extremities. IMPRESSION: No sonographic evidence for deep venous thrombosis in the visualized segments of both lower extremities.
--- NOTE | 2017-11-21 06:36 | CP.PCM.PN ---
Subjective - Date & Time of Evaluation Date of Evaluation: 11/21/17 Time of Evaluation: 06:25 - Subjective Subjective: Beni Langley PGY1 -- Family Medicine Residency -- Medicine Progress Note Patient was seen at bedside this morning, Objective - Vital Signs/Intake and Output Vital Signs (last 24 hours): Temp Pulse Resp BP Pulse Ox 99.0 F 71 20 103/61 96 11/20/17 18:00 11/21/17 02:00 11/20/17 18:00 11/20/17 18:00 11/20/17 18:00 Intake and Output: 11/20/17 11/21/17 18:59 06:59 Intake Total 800 Balance 800 - Medications Medications: Current Medications Acetaminophen (Tylenol 325mg Tab) 650 mg PO Q6H PRN PRN Reason: Pain, Mild (1-3) Albuterol Sulfate (Albuterol 0.083% Inhal Yana (2.5 Mg/3 Ml) Ud) 2.5 mg IH [id number] PRN PRN Reason: Cough and congestion Aspirin (Aspirin Chewable) 81 mg PO DAILY [facility] Last Admin: 11/20/17 15:50 Dose: 81 mg Enoxaparin Sodium (Lovenox) 40 mg SC DAILY ERIC PRN Reason: Protocol Last Admin: 11/20/17 10:06 Dose: 40 mg Famotidine (Pepcid) 40 mg PO DAILY [facility] Last Admin: 11/20/17 10:06 Dose: 40 mg Meclizine HCl (Antivert) 25 mg PO Q8H [facility] Last Admin: 11/21/17 05:40 Dose: 25 mg Ondansetron HCl (Zofran Inj) 4 mg IVP Q6H PRN PRN Reason: Nausea/Vomiting - Labs Labs: 11/20/17 06:00 11/20/17 06:00 Assessment and Plan - Assessment and Plan (Free Text) Assessment: 37-year-old female past medical history asthma, hypertension, hyperlipidemia, DVT in the setting of , who presented to [facility] ED on 11/19 with a chief complaint of dizziness x1 day. Given that the sensation is reproducible and worsened with head movement; most likely Benign Paroxysmal Positional Vertigo ( BPPV). Vertigo - Etiology likely BPPV - CT head negative - Rule out multiple sclerosis - MRA head without contrast pending - Urinalysis/ Urine Drug Toxicology: - Given antivert 25mg in ED; continue antivert 25mg PRN - Physical Therapy evaluation and education for BPPV manuvers - Neurochecks - Neuro Consulted Left Lower Quadrant Abdominal Pain - Has history of fibroid and ovarian cysts - Patient is 2/3 days post menstruation; states that pains are not new - Pelvic ultrasound ordered. - Tylenol 650mg PRN pain History Hypertension - Pressure elevated in ED; No home meds - Continue monitoring inpatient;follow-up with primary physician as outpatient History Hyperlipidemia - No Home meds - Lipid panel: GI/DVT PPx- Pepcid/ Lovenox Patient seen and case discussed with Attending Physician Dr. Annamarie Langley - PGY1
--- NOTE | 2017-11-21 09:29 | MRI ---
Date of service: 11/20/2017 PROCEDURE: MRI BRAIN WITHOUT CONTRAST HISTORY: evaluation COMPARISON: None. TECHNIQUE: Multiplanar, multisequence MR images of the brain were obtained without intravenous contrast enhancement. FINDINGS: HEMORRHAGE: None DWI: No evidence of an acute or early subacute infarction. BRAIN PARENCHYMA: No mass effect or edema. No atrophy or chronic microvascular ischemic changes. VENTRICLES: Unremarkable. No hydrocephalus. CRANIUM: Unremarkable. ORBITS: Grossly unremarkable. PARANASAL SINUSES/MASTOIDS: Clear VASCULAR SYSTEM: Skull base flow voids intact. OTHER FINDINGS: The report concurs with the preliminary [facility] report IMPRESSION: Unremarkable non contrast enhanced MRI of the brain.
--- NOTE | 2017-11-21 09:31 | MRI ---
Date of service: 11/20/2017 PROCEDURE: Magnetic Resonance Angiography Brain HISTORY: Evaluation vertebrobasilar circulation COMPARISON: None available. TECHNIQUE: 3D time of flight MR angiography of the intracranial arteries was performed. Rotating maximum intensity projection images were generated. FINDINGS: INTERNAL CAROTID ARTERIES: Unremarkable. The skull base, petrous, cavernous and supraclinoid segments are bilaterally widely patient. ANTERIOR CEREBRAL ARTERIES: Unremarkable. A1 and A2 segments are widely patent. Smaller distal branches unremarkable, as visualized. MIDDLE CEREBRAL ARTERIES: Unremarkable. M1 and M2 segments are widely patent. Perisylvian branches grossly symmetric. POSTERIOR CIRCULATION: Basilar Artery: Unremarkable. Distal Vertebral Arteries: Unremarkable. Posterior Cerebral Arteries: Unremarkable. Posterior Inferior Cerebellar Arteries: Unremarkable. ANEURYSM/ VASCULAR MALFORMATIONS: None. OTHER FINDINGS: The report concurs with the preliminary [facility] report IMPRESSION: Unremarkable MR angiography of the brain.
[2017-11-21] MEDS: Enoxaparin 40 mg Syringe SC SCH (09:39)
[2017-11-21 10:15] VITALS: BP 122/78; TEMP 98.1; O2SAT 97
--- NOTE | 2017-11-21 11:47 | CP.PCM.DIS ---
<Beni Langley - Last Filed: 11/21/17 12:54> Provider - Provider Date of Admission: 11/20/17 01:58 Attending physician: Skip De Luna MD Primary care physician: NO FAMILY PROVIDER Time Spent in preparation of Discharge (in minutes): 45 Diagnosis - Discharge Diagnosis (1) Vertigo Status: Resolved Priority: Medium (2) Intractable abdominal pain Status: Resolved Priority: Medium (3) Asthma Status: Chronic Priority: Medium Hospital Course - Lab Results Lab Results: Most Recent Lab Values WBC 10.3 10^3/ul (4.5-11.0) 11/20/17 06:00 RBC 5.00 10^6/uL (3.5-6.1) 11/20/17 06:00 Hgb 10.8 g/dL (12.0-16.0) L 11/20/17 06:00 Hct 36.1 % (36.0-48.0) 11/20/17 06:00 MCV 72.2 fl (80.0-105.0) L 11/20/17 06:00 MCH 21.6 pg (25.0-35.0) L 11/20/17 06:00 MCHC 29.9 g/dl (31.0-37.0) L 11/20/17 06:00 RDW 17.4 % (11.5-14.5) H 11/20/17 06:00 Plt Count 166 10^3/uL (120.0-450.0) 11/20/17 06:00 Gran % 47.6 % (50.0-68.0) L 11/20/17 06:00 Lymph % (Auto) 42.1 % (22.0-35.0) H 11/20/17 06:00 [place] % (Auto) 7.5 % (1.0-6.0) H 11/20/17 06:00 Eos % (Auto) 2.6 % (1.5-5.0) 11/20/17 06:00 Baso % (Auto) 0.2 % (0.0-3.0) 11/20/17 06:00 Gran # 4.89 (1.4-6.5) 11/20/17 06:00 Lymph # (Auto) 4.3 (1.2-3.4) H 11/20/17 06:00 [place] # (Auto) 0.8 (0.1-0.6) H 11/20/17 06:00 Eos # (Auto) 0.3 (0.0-0.7) 11/20/17 06:00 Baso # (Auto) 0.02 K/mm3 (0.0-2.0) 11/20/17 06:00 Sodium 141 mmol/L (132-148) 11/20/17 06:00 Potassium 3.7 mmol/L (3.6-5.0) 11/20/17 06:00 Chloride 107 mmol/L (98-107) 11/20/17 06:00 Carbon Dioxide 25 mmol/L (21-33) 11/20/17 06:00 Anion Gap 13 (10-20) 11/20/17 06:00 BUN 11 mg/dL (7-21) 11/20/17 06:00 Creatinine 0.8 mg/dl (0.7-1.2) 11/20/17 06:00 Est GFR ( Amer) > 60 11/20/17 06:00 Est GFR (Non-Af Amer) > 60 11/20/17 06:00 Random Glucose 98 mg/dL (70-110) 11/20/17 06:00 Calcium 8.6 mg/dL (8.4-10.5) 11/20/17 06:00 Magnesium 1.8 mg/dL (1.7-2.2) 11/20/17 00:45 Total Bilirubin 0.3 mg/dL (0.2-1.3) 11/20/17 06:00 AST 17 U/L (14-36) 11/20/17 06:00 ALT 31 U/L (7-56) 11/20/17 06:00 Alkaline Phosphatase 58 U/L (38-126) 11/20/17 06:00 Troponin I < 0.01 ng/mL 11/20/17 20:38 Total Protein 6.2 g/dL (5.8-8.3) 11/20/17 06:00 Albumin 3.7 g/dL (3.0-4.8) 11/20/17 06:00 Globulin 2.5 gm/dL 11/20/17 06:00 Albumin/Globulin Ratio 1.5 (1.1-1.8) 11/20/17 06:00 Triglycerides 102 mg/dL (35-160) 11/20/17 06:00 Cholesterol 185 mg/dL (130-200) 11/20/17 06:00 LDL Cholesterol Direct 135 mg/dL (0-129) H 11/20/17 06:00 HDL Cholesterol 40 mg/dL (29-60) 11/20/17 06:00 Urine Color Yellow (YELLOW) 11/20/17 05:10 Urine Appearance Clear (CLEAR) 11/20/17 05:10 Urine pH 6.0 (4.7-8.0) 11/20/17 05:10 Ur Specific [place] 1.025 (1.005-1.035) 11/20/17 05:10 Urine Protein Negative mg/dL (<30 mg/dL) 11/20/17 05:10 Urine Glucose (UA) Negative mg/dL (NEGATIVE) 11/20/17 05:10 Urine Ketones Negative mg/dL (NEGATIVE) 11/20/17 05:10 Urine Blood Negative (NEGATIVE) 11/20/17 05:10 Urine Nitrate Negative (NEGATIVE) 11/20/17 05:10 Urine Bilirubin Negative (NEGATIVE) 11/20/17 05:10 Urine Urobilinogen 0.2 E.U./dL (<1 E.U./dL) 11/20/17 05:10 Ur Leukocyte Esterase Negative Veronica/uL (NEGATIVE) 11/20/17 05:10 - Hospital Course Hospital Course: Beni Pembertonkerryotoniel PGY1 -- Discharge Summary Hospital Course 37-year-old female with a past medical history of asthma, DVT (During ) , hyperlipidemia, hypertension, who presented to [facility] Emergency Department (ED) on 11/19/17 with a complaint of dizziness for 1 day. While in the ED, EKG was obtained and revealed no abnormalities. Furthermore, CT of head without contrast was obtained and per report, showed no acute intracranial abnormalities. Vital signs were monitored, and CBC and CMP were within normal limts. Patient received Zofran and Antivert for nausea, and and was admitted to [facility] for evaluation and treatment of persistent vertigo. On Hospital Day 2, the patient states she continued to have dizziness and nausea despite treatment with zofran and antivert. Neurology was consulted, and per report, neurological physical exam was unremarkable with 5/5 muscle strength in upper and lower extremities bilaterally. The patient was able to walk with mild assistance, per report. MRI of brain was obtained and was unremarkable. Furthermore, MRA of head was obtained and was unremarkable. Physical therapy was consulted for evaluation and treatment. Carotid artery ultrasound was obtained as well, and per report, revealed bilateral 0-19% proximal ICA stenosis. Per neurology, the patient's current symptoms are likely due to benign positional paroxysmal vertigo, as the physical exam revealed positive Pioche-Turcios pike maneuver with positive supine lateral head turn. Of note, the patient also complained of left lower quadrant abdominal pain, thus a pelvic ultrasound was obtained and was unremarkable, as per radiology report. On day 3, the patient's symptoms persisted, but were improved with physical therapy and vestibular therapeutic exercises. Patient's vitals were within normal limits, and the patient was able to tolerate her diet. The patient was educated on how to perform the therapeutic maneuvers, and was discharged to home in stable condition. All consultants on the case agreed on the disposition of the patient. The patient agreed, and was given prescription for 4-6 weeks of vertigo therapy and rehabilitation as an outpatient, and it was recommended to the patient that she follow-up with her primary care physician outpatient within 3-5 days. Discharge Medications: Albuterol HFA - home med continued Meclizine 25mg PO Q8H - Rx Zofran 4mg PO Q8H - Rx Vestibular therapy and rehabilitation - Rx Patient was seen and case discussed with Attending Physician, Dr. Annamarie Langley PGY1 - Date & Time of H&P Date of H&P: 11/20/17 Time of H&P: 02:25 Discharge Exam - Head Exam Head Exam: ATRAUMATIC, NORMAL INSPECTION, NORMOCEPHALIC - Eye Exam Eye Exam: EOMI, Normal appearance. absent: Scleral icterus - ENT Exam ENT Exam: Mucous Membranes Moist, Normal Exam - Neck Exam Neck exam: Full Rom - Respiratory Exam Respiratory Exam: NORMAL BREATHING PATTERN, UNREMARKABLE. absent: Rales, Wheezes - Cardiovascular Exam Cardiovascular Exam: REGULAR RHYTHM, +S1, +S2 - GI/Abdominal Exam GI & Abdominal Exam: Normal Bowel Sounds, Soft, Unremarkable. absent: Tenderness - Extremities Exam Extremities exam: normal inspection - Neurological Exam Neurological exam: Alert, Oriented x3 - Psychiatric Exam Psychiatric exam: Normal Affect, Normal Mood - Skin Skin Exam: Dry, Intact, Normal Color, Warm Discharge Plan - Discharge Medications Prescriptions: Meclizine [Meclizine*] 25 mg PO Q8H PRN #20 tab PRN Reason: Dizziness Ondansetron [Zofran] 4 mg PO Q8H PRN #15 tab PRN Reason: Nausea/Vomiting - Follow Up Plan Condition: STABLE Disposition: HOME/ ROUTINE Patient education suggested?: Yes Instructions: Vertigo (a Type of Dizziness) (DC) Additional Instructions: - Follow-up with primary care physician in 3-5 days - Follow-up with neurologist within 7 days - Follow-up with vestibular therapy within 3-5 days - Take medications as prescribed - Proceed to ED if symptoms return Referrals: FAMILY PROVIDER,BRETT [Primary Care Provider] - Lauryn Cage MD [Staff Provider] - <Skip De Luna - Last Filed: 11/21/17 16:21> Provider - Provider Date of Admission: 11/20/17 01:58 Attending physician: Skip De Luna MD Primary care physician: BRETT FAMILY PROVIDER Hospital Course - Lab Results Lab Results: Most Recent Lab Values WBC 10.3 10^3/ul (4.5-11.0) 11/20/17 06:00 RBC 5.00 10^6/uL (3.5-6.1) 11/20/17 06:00 Hgb 10.8 g/dL (12.0-16.0) L 11/20/17 06:00 Hct 36.1 % (36.0-48.0) 11/20/17 06:00 MCV 72.2 fl (80.0-105.0) L 11/20/17 06:00 MCH 21.6 pg (25.0-35.0) L 11/20/17 06:00 MCHC 29.9 g/dl (31.0-37.0) L 11/20/17 06:00 RDW 17.4 % (11.5-14.5) H 11/20/17 06:00 Plt Count 166 10^3/uL (120.0-450.0) 11/20/17 06:00 Gran % 47.6 % (50.0-68.0) L 11/20/17 06:00 Lymph % (Auto) 42.1 % (22.0-35.0) H 11/20/17 06:00 [place] % (Auto) 7.5 % (1.0-6.0) H 11/20/17 06:00 Eos % (Auto) 2.6 % (1.5-5.0) 11/20/17 06:00 Baso % (Auto) 0.2 % (0.0-3.0) 11/20/17 06:00 Gran # 4.89 (1.4-6.5) 11/20/17 06:00 Lymph # (Auto) 4.3 (1.2-3.4) H 11/20/17 06:00 [place] # (Auto) 0.8 (0.1-0.6) H 11/20/17 06:00 Eos # (Auto) 0.3 (0.0-0.7) 11/20/17 06:00 Baso # (Auto) 0.02 K/mm3 (0.0-2.0) 11/20/17 06:00 Sodium 141 mmol/L (132-148) 11/20/17 06:00 Potassium 3.7 mmol/L (3.6-5.0) 11/20/17 06:00 Chloride 107 mmol/L (98-107) 11/20/17 06:00 Carbon Dioxide 25 mmol/L (21-33) 11/20/17 06:00 Anion Gap 13 (10-20) 11/20/17 06:00 BUN 11 mg/dL (7-21) 11/20/17 06:00 Creatinine 0.8 mg/dl (0.7-1.2) 11/20/17 06:00 Est GFR ( Amer) > 60 11/20/17 06:00 Est GFR (Non-Af Amer) > 60 11/20/17 06:00 Random Glucose 98 mg/dL (70-110) 11/20/17 06:00 Calcium 8.6 mg/dL (8.4-10.5) 11/20/17 06:00 Magnesium 1.8 mg/dL (1.7-2.2) 11/20/17 00:45 Total Bilirubin 0.3 mg/dL (0.2-1.3) 11/20/17 06:00 AST 17 U/L (14-36) 11/20/17 06:00 ALT 31 U/L (7-56) 11/20/17 06:00 Alkaline Phosphatase 58 U/L (38-126) 11/20/17 06:00 Troponin I < 0.01 ng/mL 11/20/17 20:38 Total Protein 6.2 g/dL (5.8-8.3) 11/20/17 06:00 Albumin 3.7 g/dL (3.0-4.8) 11/20/17 06:00 Globulin 2.5 gm/dL 11/20/17 06:00 Albumin/Globulin Ratio 1.5 (1.1-1.8) 11/20/17 06:00 Triglycerides 102 mg/dL (35-160) 11/20/17 06:00 Cholesterol 185 mg/dL (130-200) 11/20/17 06:00 LDL Cholesterol Direct 135 mg/dL (0-129) H 11/20/17 06:00 HDL Cholesterol 40 mg/dL (29-60) 11/20/17 06:00 Urine Color Yellow (YELLOW) 11/20/17 05:10 Urine Appearance Clear (CLEAR) 11/20/17 05:10 Urine pH 6.0 (4.7-8.0) 11/20/17 05:10 Ur Specific [place] 1.025 (1.005-1.035) 11/20/17 05:10 Urine Protein Negative mg/dL (<30 mg/dL) 11/20/17 05:10 Urine Glucose (UA) Negative mg/dL (NEGATIVE) 11/20/17 05:10 Urine Ketones Negative mg/dL (NEGATIVE) 11/20/17 05:10 Urine Blood Negative (NEGATIVE) 11/20/17 05:10 Urine Nitrate Negative (NEGATIVE) 11/20/17 05:10 Urine Bilirubin Negative (NEGATIVE) 11/20/17 05:10 Urine Urobilinogen 0.2 E.U./dL (<1 E.U./dL) 11/20/17 05:10 Ur Leukocyte Esterase Negative Veronica/uL (NEGATIVE) 11/20/17 05:10 Attending/Attestation - Attestation I have personally seen and examined this patient.: Yes I have fully participated in the care of the patient.: Yes I have reviewed all pertinent clinical information, including history, physical exam and plan: Yes Notes (Text): 11/21/17 16:19 attending note; Patient seen and examined with resident. Patient is a 37-year-old female with a past medical history of asthma, DVT during about 13 years ago,hyperlipidemia, hypertension is admitted with dizziness. Found to have benign positional vertigo. CT head, MRI, carotid Doppler is negative. lower extremity Doppler is negative. Cardiac enzymes negative. Treated with Antivert and Zofran. Neurology evaluation appreciated. patient clinically improved. Dizziness is better. Tolerating diet well. Patient will be discharged home with close outpatient physical therapy/with stable therapy. Advised to follow-up with neurology in 2 weeks. follow-up with PMD in [place].
--- NOTE | 2017-11-21 13:52 | CP.PCM.PN ---
Subjective - Date & Time of Evaluation Date of Evaluation: 11/21/17 Time of Evaluation: 09:30 - Subjective Subjective: Phil Vallecillo - Neurology Progress Note for Dr. Cage Patient seen and examined this AM. No acute events reported overnight. Patient continues to complain of dizziness and symptoms of room spinning when opening eyes. She reports feeling fatigued and tired due to lack of sleep overnight. Patient denies changes in vision, loss of vision, headache, weakness, focal deficits, numbness, paraesthesias, chest pain, shortness of breath, abdominal pain, fever or chills. Objective - Vital Signs/Intake and Output Vital Signs (last 24 hours): Temp Pulse Resp BP Pulse Ox 98.1 F 71 20 122/78 97 11/21/17 07:30 11/21/17 07:30 11/21/17 07:30 11/21/17 07:30 11/21/17 07:30 - Medications Medications: Current Medications Acetaminophen (Tylenol 325mg Tab) 650 mg PO Q6H PRN PRN Reason: Pain, Mild (1-3) Albuterol Sulfate (Albuterol 0.083% Inhal Yana (2.5 Mg/3 Ml) Ud) 2.5 mg IH [id number] PRN PRN Reason: Cough and congestion Aspirin (Aspirin Chewable) 81 mg PO DAILY [facility] Last Admin: 11/21/17 09:39 Dose: 81 mg Enoxaparin Sodium (Lovenox) 40 mg SC DAILY ERIC PRN Reason: Protocol Last Admin: 11/21/17 09:39 Dose: 40 mg Famotidine (Pepcid) 40 mg PO DAILY [facility] Last Admin: 11/21/17 09:39 Dose: 40 mg Meclizine HCl (Antivert) 25 mg PO Q8H [facility] Last Admin: 11/21/17 05:40 Dose: 25 mg Ondansetron HCl (Zofran Inj) 4 mg IVP Q6H PRN PRN Reason: Nausea/Vomiting - Labs Labs: 11/20/17 06:00 11/20/17 06:00 - Head Exam Head Exam: ATRAUMATIC, NORMAL INSPECTION, NORMOCEPHALIC - Eye Exam Eye Exam: EOMI, Nystagmus (mild right > left gaze), PERRL - Neck Exam Neck Exam: Full ROM - Respiratory Exam Respiratory Exam: Clear to Ausculation Bilateral, NORMAL BREATHING PATTERN - Cardiovascular Exam Cardiovascular Exam: REGULAR RHYTHM, +S1, +S2 - GI/Abdominal Exam GI & Abdominal Exam: Soft, Normal Bowel Sounds - Neurological Exam Neurological Exam: Alert, Awake, Normal Gait, Oriented x3 Neuro motor strength exam: Left Upper Extremity: 5, Right Upper Extremity: 5, Left Lower Extremity: 5, Right Lower Extremity: 5 - Psychiatric Exam Psychiatric exam: Normal Affect, Normal Mood - Skin Skin Exam: Dry, Intact Assessment and Plan - Assessment and Plan (Free Text) Assessment: 37 year old female with past medical history of HTN, HLD, provoked DVT presnting with dizziness. Patient found to have positive Hetal-Hallpike maneuver on exam and Head CT negative for acute intracranial abnormalities. Patient monitored overnight with no acute events. Plan: Dizziness - Etiology likely BPPV - Positive physical exam findings, positive [place]-hallpike, supine lateral head movement - CT head: no acute intracranial abn - MRA brain: unremarkable - MRI brain: unremarkable - Carotid US: normal - Continued symptoms with scheduled meclizine 25mg PO Q6H - PT - Vestibular therapy with jacqueline maneuver - Recommend patient follow up with Neurology in 2 weeks upon discharge - Recommend vestibular therapy outpatient Case and plan discussed with attending, Dr. Niles Vallecillo PGY2
[2017-11-21 13:56] VITALS: PULSE 68
== END 2017-11-21 15:43 | disposition home or self-care (01) ==
LOC: ED 21:45 → ERH 11-20 01:58 → 3RNO 11-20 02:46
PROVIDERS: ADMIT Internal Medicine; ATTEND Internal Medicine
DX: H81.10 Benign paroxysmal vertigo, unspecified ear (principal); E78.5 Hyperlipidemia, unspecified; I10 Essential (primary) hypertension; I65.23 Occlusion and stenosis of bilateral carotid arteries; J45.909 Unspecified asthma, uncomplicated; K21.9 Gastro-esophageal reflux disease without esophagitis; W19.XXXA Unspecified fall, initial encounter; Z90.49 Acquired absence of other specified parts of digestive tract; Z98.891 History of uterine scar from previous surgery; Z88.8 Allergy status to other drugs, medicaments and biological substances; Z91.040 Latex allergy status; F40.240 Claustrophobia
CPT/HCPCS: 70450; 70544; 70551; 76856; 80053; 80061; 81003; 83735; 84484; 85025; 93005; 93880; 93970; 96374; 97110; 97116; 97161; 99285; G0378; G8978; G8979; J1650; J2060; J2405

== ENCOUNTER 2018-08-14 17:18 | Emergency (ER) | payer SELFPAY ==
[2018-08-14 17:27] VITALS: BMI 38.2
[2018-08-14 17:28] VITALS: RESP 18
[2018-08-14] MEDS ORDERED: Sodium Chloride 0.9% 1,000 ML IV STA (17:53)
[2018-08-14] MEDS ORDERED: DiphenhydrAMINE 50 mg/ml Inj IVP STA (17:53)
[2018-08-14 18:43] LABS: BASO # 0.02 K/mm3 (0.0-2.0); BASO % 0.2 % (0.0-3.0); EOS # 0.2 (0.0-0.7); EOS % 1.7 % (1.5-5.0); HEMOGLOBIN 10.8 g/dL (12.0-16.0); LYMPH # 3.9 (1.2-3.4); LYMPH % 39.3 % (22.0-35.0); MEAN CELL VOLUME 73.2 fl (80.0-105.0); MEAN CORPUSCULAR HEMOGLOBIN 22.1 pg (25.0-35.0); MEAN CORPUSCULAR HGB CONC 30.3 g/dl (31.0-37.0); MONO # 0.7 (0.1-0.6); PLATELET COUNT 175 10^3/uL (120.0-450.0); RBC 4.88 10^6/uL (3.5-6.1); RED CELL DISTRIBUTION WIDTH 16.6 % (11.5-14.5); WHITE BLOOD COUNT 9.8 10^3/uL (4.5-11.0)
[2018-08-14 18:44] LABS: ALB/GLOB RATIO 1.6 (1.1-1.8); ALBUMIN 4.1 g/dL (3.0-4.8); ALT/SGPT 22 U/L (7-56); AST/SGOT 21 U/L (14-36); BLOOD UREA NITROGEN 12 mg/dL (7-21); CALCIUM 8.7 mg/dL (8.4-10.5); GFR NON-AFRICAN AMERICAN > 60
--- NOTE | 2018-08-14 18:48 | ED PDOC ---
Arrival/HPI - General Chief Complaint: Dizziness/Lightheaded Time Seen by Provider: 08/14/18 17:37 - History of Present Illness Narrative History of Present Illness (Text): 08/14/18 18:48 37 year old female, with a past medical history of hypertension (1.5 years), who presents to the emergency department with headache, dizziness. Patient reports that she is concerned that her symptoms maybe related to elevated bp, her doctor put her on medications for hypertension, but states she can not get prescriptions due to lack of insurance. Patient endorses tiredness, body aches, sore throat, lightheadedness and dizziness described as room spinning today. P cj also endorses headaches, described as pressure behind her eyes. She reports having vertigo like symptoms last summer. She denies any fever, chills, cough, chest pain, shortness of breath, palpitations, nausea, vomiting, diarrhea, trauma, recent travel, sick contact, abdominal pain, or any other symptoms. Past Medical History - Provider Review Nursing Documentation Reviewed: Yes - Past History Past History: No Previous - Infectious Disease Hx of Infectious Diseases: None - Cardiac Hx Cardiac Disorders: Yes Hx Hypertension: Yes - Pulmonary Hx Respiratory Disorders: Yes Hx Asthma: Yes - Neurological Hx Neurological Disorder: No - HEENT Hx HEENT Disorder: No - Renal Hx Renal Disorder: No - Endocrine/Metabolic Hx Endocrine Disorders: No - Hematological/Oncological Hx Blood Transfusions: No - Integumentary Hx Dermatological Disorder: No - Musculoskeletal/Rheumatological Hx Musculoskeletal Disorders: No - Gastrointestinal Hx Gastrointestinal Disorders: No Hx Gastroesophageal Reflux: Yes - Genitourinary/Gynecological Hx Genitourinary Disorders: No Other/Comment: Fibroids - Psychiatric Hx Emotional Abuse: No Hx Physical Abuse: No Hx Substance Use: No - Surgical History Hx Section: Yes (x2) Hx Cholecystectomy: Yes - Anesthesia Hx Anesthesia: Yes Hx Anesthesia Reactions: No Hx Malignant Hyperthermia: No - Suicidal Assessment Feels Threatened In Home Enviroment: No Family/Social History - Physician Review Nursing Documentation Reviewed: Yes Family/Social History: Unknown Family HX Smoking Status: Never Smoked Hx Alcohol Use: No Hx Substance Use: No Hx Substance Use Treatment: No Allergies/Home Meds Allergies/Adverse Reactions: Allergies iodine Allergy (Severe, Verified 08/14/18 17:27) ANAPHYLAXIS latex Allergy (Verified 08/14/18 17:27) ITCHING Home Medications: Home Meds Medication Instructions Recorded Confirmed Albuterol HFA [Ventolin HFA 90 1 puff IH PRN PRN 04/04/17 11/19/17 mcg/actuation (8 g)] Review of Systems - Physician Review All systems were reviewed & negative as marked: Yes - Review of Systems Constitutional: absent: Fevers ENT: Sore Throat Respiratory: absent: SOB, Cough Cardiovascular: absent: Chest Pain, Palpitations Gastrointestinal: absent: Abdominal Pain, Diarrhea, Nausea, Vomiting Musculoskeletal: absent: Back Pain, Neck Pain Neurological: Headache, Dizziness Endocrine: absent: Diaphoresis Physical Exam Vital Signs Reviewed: Yes Vital Signs Temp Pulse Resp BP Pulse Ox 08/14/18 18:34 70 18 116/62 99 08/14/18 17:27 97.4 F L 74 18 140/84 99 Temperature: Afebrile Blood Pressure: Normal Pulse: Regular Respiratory Rate: Normal Appearance: Positive for: Well-Appearing, Non-Toxic, Comfortable Pain Distress: None Mental Status: Positive for: Alert and Oriented X 3 - Systems Exam Head: Present: Atraumatic, Normocephalic Pupils: Present: PERRL Extroacular Muscles: Present: EOMI Conjunctiva: Present: Normal Ears: Present: Normal, NORMAL TM, Normal Canal. No: Erythema Mouth: Present: Moist Mucous Membranes Pharnyx: Present: Normal, ERYTHEMA. No: EXUDATE, Peritonsilar Swelling, Uvular Deviation, Muffled/Hoarse Voice, Strider Neck: Present: Normal Range of Motion Respiratory/Chest: Present: Clear to Auscultation, Good Air Exchange. No: Respiratory Distress, Accessory Muscle Use Cardiovascular: Present: Regular Rate and Rhythm, Normal S1, S2. No: Murmurs Abdomen: No: Tenderness, Distention, Peritoneal Signs Back: Present: Normal Inspection Upper Extremity: Present: Normal Inspection. No: Cyanosis, Edema Lower Extremity: Present: Normal Inspection, Other (Can ambulate, steady gait. ). No: Edema Neurological: Present: GCS=15, CN II-XII Intact, Speech Normal, Motor Func Grossly Intact, Normal Sensory Function, Gait Normal Skin: Present: Warm, Dry, Normal Color. No: Rashes Psychiatric: Present: Alert, Oriented x 3, Normal Insight, Normal Concentration Medical Decision Making ED Course and Treatment: 08/14/18 18:45 Impression: 37 year old female presents to the emergency department with hypertension. Differential Diagnosis included but are not limited to: Plan: -- EKG -- Benadryl -- Reglan -- Iv fluids -- Toradol -- Urine preg test -- Labs -- Influenza AB -- Rapid strep -- Reassess and disposition Prior Visits: Notes and results from previous visits were reviewed. Progress Notes: 08/14/18 19:43 Uhcg (-). EKG: NSR at 72 bpm, (-) acute ST changes, as read by PA. Labs reviewed, mild chronic anemia, rest of the lab results were within normal limits, rapid strep and flu test was negative. On reevaluation, patient reports improvement of symptoms, denies severe headache, dizziness or nausea. Repeat VS T 97.8 P 72 BP 118/68 R 18 O2sat 98%RA. On exam, patient remains awake alert and oriented 3 in no acute distress. Neck is supple, repeat neuro exam shows no focal findings. Diagnostic results discussed with the patient in great detail, diagnosis of likely viral illness discussed with the patient. Advised to follow up with primary care physician in 1-2 days without fail, especially regarding her blood pressure. Advised to take medication as prescribed. Return to the emergency room at any time for any new or worsening symptoms. Patient states she fully agrees with and understands discharge instructions. States that she agrees with the plan and disposition. Verbalized and repeated discharge instructions and plan. I have given the patient opportunity to ask any additional questions. - Lab Interpretations Lab Results: Total Bilirubin 0.3 mg/dL (0.2-1.3) 08/14/18 18:20 AST 21 U/L (14-36) 08/14/18 18:20 ALT 22 U/L (7-56) 08/14/18 18:20 Alkaline Phosphatase 63 U/L (38-126) 08/14/18 18:20 Total Protein 6.7 g/dL (5.8-8.3) 08/14/18 18:20 Albumin 4.1 g/dL (3.0-4.8) 08/14/18 18:20 Globulin 2.6 gm/dL 08/14/18 18:20 Albumin/Globulin Ratio 1.6 (1.1-1.8) 08/14/18 18:20 - Medication Orders Current Medication Orders: Sodium Chloride (Sodium Chloride 0.9%) 1,000 mls @ 500 mls/hr IV .Q2H STA Stop: 08/14/18 19:52 Last Admin: 08/14/18 18:22 Dose: 500 mls/hr eMAR Start Stop Document 08/14/18 18:22 SRE (Rec: 08/14/18 18:22 SRE [facility] [id number]) Intravenous Solution Start Date 08/14/18 Start Time 18:22 End Date 08/14/18 End time 18:23 Total Infusion Time 1 Discontinued Medications Diphenhydramine HCl (Benadryl) 25 mg IVP STAT STA Stop: 08/14/18 17:54 Last Admin: 08/14/18 18:23 Dose: 25 mg IVP Administration Document 08/14/18 18:23 SRE (Rec: 08/14/18 18:24 SRE [id number]) Charges for Administration # of IVP Administrations 1 Ketorolac Tromethamine (Toradol) 30 mg IVP STAT STA Stop: 08/14/18 17:54 Last Admin: 08/14/18 18:23 Dose: 30 mg MAR Pain Assessment Document 08/14/18 18:23 SRE (Rec: 08/14/18 18:23 SRE [id number]) Pain Reassessment Is this a pain reassessment? Yes Sleep Is patient sleeping during reassessment? No Presence of Pain Presence of Pain Yes Pain Scale Used Protocol: PSCALES Pain Scale Used Numeric Location Pain Location Body Finishing Range Operator Description Description Constant IVP Administration Document 08/14/18 18:23 SRE (Rec: 08/14/18 18:23 SRE [id number]) Charges for Administration # of IVP Administrations 1 Metoclopramide HCl (Reglan) 10 mg IVP STAT STA Stop: 08/14/18 17:54 Last Admin: 08/14/18 18:23 Dose: 10 mg IVP Administration Document 08/14/18 18:23 SRE (Rec: 08/14/18 18:23 SRE [facility] [id number]) Charges for Administration # of IVP Administrations 1 - PA / FLOAT NURSE / Resident Statement / has reviewed & agrees with the documentation as recorded. / has examined the patient and agrees with the treatment plan. - Scribe Statement The provider has reviewed the documentation as recorded by the Jaren Mcqueen All medical record entries made by the Scribe were at my direction and personally dictated by me. I have reviewed the chart and agree that the record accurately reflects my personal performance of the history, physical exam, medical decision making, and the department course for this patient. I have also personally directed, reviewed, and agree with the discharge instructions and disposition. Disposition/Present on Arrival - Present on Arrival Any Indicators Present on Arrival: Yes History of DVT/PE: Yes History of Uncontrolled Diabetes: No Urinary Catheter: No History of Decub. Ulcer: No History Surgical Site Infection Following: None - Disposition Have Diagnosis and Disposition been Completed?: Yes Diagnosis: Dizziness, Headache, Viral illness Disposition: HOME/ ROUTINE Disposition Time: 20:00 Patient Plan: Discharge Condition: STABLE Discharge Instructions (ExitCare): Viral Pharyngitis, Headache, Adult (DC), Dizziness, Nonvertigo, (DC) Additional Instructions: Thank you for letting us take care of you today. You were treated for dizziness, headache, viral illness. The emergency medical care you received today was directed at your acute symptoms. If you were prescribed any medication, please fill it and take as directed. It may take several days for your symptoms to resolve. Return to the Emergency Department if your symptoms worsen, do not improve, or if you have any other problems. Please contact your doctor in 2 days for re-evaluation and follow up / or call one of the physicians/clinics you have been referred to that are listed on the Patient Visit Information form that is included in your discharge packet. Bring any paperwork you were given at discharge with you along with any medications you are taking to your follow up visit. Our treatment cannot replace ongoing medical care by a primary care provider (PCP) outside of the emergency department. Thank you for allowing the [facility] team to be part of your care today. Prescriptions: Metoclopramide HCl [Reglan] 10 mg PO QID PRN #20 tablet PRN Reason: Headache Referrals: FAMILY PROVIDER,NO [Primary Care Provider] - Follow up with primary Forms: [employer] (Tai[place]ese), WORK NOTE
[2018-08-14 19:10] LABS: INFLUENZA A B NEGATIVE FOR FLU A/B (NEGATIVE)
[2018-08-14 20:00] VITALS: BP 118/68; PULSE 72; TEMP 97.8; O2SAT 98
--- NOTE | 2018-08-14 20:16 | CARD ---
APPROVED REPORT Date of service: 08/14/2018 EKG Measurement Heart [id number] <Conclusion> Normal sinus rhythm Normal ECG
== END 2018-08-14 20:02 | disposition home or self-care (01) ==
LOC: ED 17:18
DX: B34.9 Viral infection, unspecified (principal); R51 Headache; R42 Dizziness and giddiness; I10 Essential (primary) hypertension
CPT/HCPCS: 80053; 81025; 85025; 87070; 87430; 87804; 93005; 96374; 96375; 99285; J1200; J1885; J2765; J7030

== ENCOUNTER 2018-09-03 05:37 | Emergency (ER) | payer SELFPAY ==
[2018-09-03 05:38] VITALS: BMI 38.2
[2018-09-03 05:49] VITALS: BP 136/77; PULSE 85; RESP 16; O2SAT 98
[2018-09-03 05:51] VITALS: TEMP 98.7
--- NOTE | 2018-09-03 05:58 | ED PDOC ---
Arrival/HPI - General Chief Complaint: Female Genitourinary Time Seen by Provider: 09/03/18 05:42 Historian: Patient - History of Present Illness Narrative History of Present Illness (Text): 09/03/18 05:55 Fadumo Rausch is a 37 year old female, with no significant past medical history, who presents to the ED complaining of abdominal pain. Patient states she woke up this morning with suprapubic pain and pressure when urinating. Patient notes symptoms are similar previous episode of UTI. Patient denies any fever, nausea, vomiting, back pain, neck pain, headache, dizziness, or any other complaints. Symptom Onset: Gradual Symptom Course: Unchanged Activities at Onset: Light Context: Home Past Medical History - Provider Review Nursing Documentation Reviewed: Yes - Past History Past History: No Previous - Infectious Disease Hx of Infectious Diseases: None - Cardiac Hx Cardiac Disorders: Yes Hx Hypertension: Yes - Pulmonary Hx Respiratory Disorders: Yes Hx Asthma: Yes - Neurological Hx Neurological Disorder: No - HEENT Hx HEENT Disorder: No - Renal Hx Renal Disorder: No - Endocrine/Metabolic Hx Endocrine Disorders: No - Hematological/Oncological Hx Blood Transfusions: No - Integumentary Hx Dermatological Disorder: No - Musculoskeletal/Rheumatological Hx Musculoskeletal Disorders: No - Gastrointestinal Hx Gastrointestinal Disorders: No Hx Gastroesophageal Reflux: Yes - Genitourinary/Gynecological Hx Genitourinary Disorders: No Other/Comment: Fibroids - Psychiatric Hx Emotional Abuse: No Hx Physical Abuse: No Hx Substance Use: No - Surgical History Hx Section: Yes (x2) Hx Cholecystectomy: Yes - Anesthesia Hx Anesthesia: Yes Hx Anesthesia Reactions: No Hx Malignant Hyperthermia: No - Suicidal Assessment Feels Threatened In Home Enviroment: No Family/Social History - Physician Review Nursing Documentation Reviewed: Yes Family/Social History: Unknown Family HX Smoking Status: Never Smoked Hx Alcohol Use: No Hx Substance Use: No Hx Substance Use Treatment: No Allergies/Home Meds Allergies/Adverse Reactions: Allergies iodine Allergy (Severe, Verified 09/03/18 05:47) ANAPHYLAXIS latex Allergy (Verified 09/03/18 05:47) ITCHING Home Medications: Home Meds Medication Instructions Recorded Confirmed Albuterol HFA [Ventolin HFA 90 1 puff IH PRN PRN 04/04/17 09/03/18 mcg/actuation (8 g)] Review of Systems - Physician Review All systems were reviewed & negative as marked: Yes - Review of Systems Constitutional: Normal. absent: Fevers Eyes: Normal ENT: Normal Respiratory: Normal. absent: SOB, Cough Cardiovascular: Normal. absent: Chest Pain Gastrointestinal: Abdominal Pain. absent: Diarrhea, Nausea, Vomiting Genitourinary Female: Dysuria. absent: Hematuria, Urine Output Changes Musculoskeletal: Normal. absent: Back Pain, Neck Pain Skin: Normal. absent: Rash Neurological: Normal. absent: Headache, Dizziness Endocrine: Normal Hemo/Lymphatic: Normal Psychiatric: Normal Physical Exam Vital Signs Reviewed: Yes Vital Signs Temp Pulse Resp BP Pulse Ox 09/03/18 05:47 98.7 F 85 16 136/77 98 Temperature: Afebrile Blood Pressure: Normal Pulse: Regular Respiratory Rate: Normal Appearance: Positive for: Well-Appearing, Non-Toxic, Comfortable Pain Distress: None Mental Status: Positive for: Alert and Oriented X 3 - Systems Exam Head: Present: Atraumatic, Normocephalic Pupils: Present: PERRL Extroacular Muscles: Present: EOMI Conjunctiva: Present: Normal Mouth: Present: Moist Mucous Membranes Neck: Present: Normal Range of Motion Respiratory/Chest: Present: Clear to Auscultation, Good Air Exchange. No: Respiratory Distress, Accessory Muscle Use Cardiovascular: Present: Regular Rate and Rhythm, Normal S1, S2. No: Murmurs Abdomen: No: Tenderness, Distention, Peritoneal Signs Neurological: Present: GCS=15, CN II-XII Intact, Speech Normal Skin: Present: Warm, Dry, Normal Color. No: Rashes Psychiatric: Present: Alert, Oriented x 3, Normal Insight, Normal Concentration Medical Decision Making ED Course and Treatment: 09/03/18 05:55 Impression: 37 year old female complaining of suprapubic pain and pressure when urinating since this morning. Plan: -- UA -- Reassess and disposition Progress Notes: - Scribe Statement The provider has reviewed the documentation as recorded by the Scribe Provider Attestation: Maame Dean Provider Scribe Attestation: All medical record entries made by the Scribe were at my direction and personally dictated by me. I have reviewed the chart and agree that the record accurately reflects my personal performance of the history, physical exam, medical decision making, and the department course for this patient. I have also personally directed, reviewed, and agree with the discharge instructions and disposition. Disposition/Present on Arrival - Present on Arrival Any Indicators Present on Arrival: No History of DVT/PE: Yes History of Uncontrolled Diabetes: No Urinary Catheter: No History of Decub. Ulcer: No History Surgical Site Infection Following: None - Disposition Have Diagnosis and Disposition been Completed?: Yes Diagnosis: UTI (urinary tract infection) Disposition: HOME/ ROUTINE Disposition Time: 06:34 Patient Plan: Discharge Patient Problems: Current Active Problems Problem Status Onset UTI (urinary tract infection) Acute Condition: STABLE Discharge Instructions (ExitCare): Urinary Tract Infection, Adult (DC) Additional Instructions: Take meds as prescribed/drink plenty of liquids/follow up with your doctor this week Prescriptions: Cephalexin [cephalexin] 500 mg PO BID #14 cap Phenazopyridine [Pyridium] 200 mg PO TID #15 tab Forms: [employer] (Scottish)
[2018-09-03 06:16] LABS: URINE APPEARANCE CLOUDY (CLEAR); URINE BILIRUBIN NEGATIVE (NEGATIVE); URINE BLOOD MODERATE (NEGATIVE); URINE COLOR YELLOW (YELLOW); URINE GLUCOSE (UA) NEGATIVE (NEGATIVE); URINE LEUKOCYTE ESTERASE NEGATIVE Leu/uL (NEGATIVE); URINE PROTEIN 30 mg/dL (<30 mg/dL); URINE UROBILINOGEN 0.2 E.U./dL (<1 E.U./dL)
[2018-09-03 06:22] LABS: URINE BACTERIA MOD /hpf; URINE WBC TNTC /hpf (0-6)
[2018-09-03] MEDS ORDERED: TraMADol/Apap 37.5/325 mg Tab PO STA (06:34)
== END 2018-09-03 06:54 | disposition home or self-care (01) ==
LOC: ED 05:37
DX: N39.0 Urinary tract infection, site not specified (principal); I10 Essential (primary) hypertension

== ENCOUNTER 2018-09-05 15:43 | Observation (INO) | payer MEDICAID, OTHER ==
[2018-09-05 15:53] VITALS: BMI 36.3
[2018-09-05] MEDS ORDERED: Sodium Chloride 0.9% 1,000 ML IV STA (16:17)
--- NOTE | 2018-09-05 16:17 | ED PDOC ---
Arrival/HPI - General Chief Complaint: Back Pain Time Seen by Provider: 09/05/18 16:02 Historian: Patient - History of Present Illness Narrative History of Present Illness (Text): 09/05/18 16:02 37 y/o female, no significant pmh, allergic to iodine, c/o rt. flank and RUQ pain x 3 days with no fall or trauma. Aching pain, aggravated by movement, no numbness or tingling, seen at the ER for UTI but the urine culture is contamina db with multiple species, no night sweat, no dizziness, no change in vision, no numbness or tingling, no other medical or psychological complaints. Past Medical History - Provider Review Nursing Documentation Reviewed: Yes - Past History Past History: No Previous - Infectious Disease Hx of Infectious Diseases: None - Cardiac Hx Cardiac Disorders: Yes Hx Hypertension: Yes - Pulmonary Hx Respiratory Disorders: Yes Hx Asthma: Yes - Neurological Hx Neurological Disorder: No - HEENT Hx HEENT Disorder: No - Renal Hx Renal Disorder: No - Endocrine/Metabolic Hx Endocrine Disorders: No - Hematological/Oncological Hx Blood Transfusions: No - Integumentary Hx Dermatological Disorder: No - Musculoskeletal/Rheumatological Hx Musculoskeletal Disorders: No - Gastrointestinal Hx Gastrointestinal Disorders: No Hx Gastroesophageal Reflux: Yes - Genitourinary/Gynecological Hx Genitourinary Disorders: No Other/Comment: Fibroids - Psychiatric Hx Emotional Abuse: No Hx Physical Abuse: No Hx Substance Use: No - Surgical History Hx Section: Yes (x2) Hx Cholecystectomy: Yes - Anesthesia Hx Anesthesia: Yes Hx Anesthesia Reactions: No Hx Malignant Hyperthermia: No - Suicidal Assessment Feels Threatened In Home Enviroment: No Family/Social History - Physician Review Nursing Documentation Reviewed: Yes Family/Social History: Unknown Family HX Smoking Status: Never Smoked Hx Alcohol Use: No Hx Substance Use: No Hx Substance Use Treatment: No Allergies/Home Meds Allergies/Adverse Reactions: Allergies iodine Allergy (Severe, Verified 09/05/18 15:53) ANAPHYLAXIS latex Allergy (Verified 09/05/18 15:53) ITCHING Home Medications: Home Meds Medication Instructions Recorded Confirmed Albuterol HFA [Ventolin HFA 90 1 puff IH PRN PRN 04/04/17 09/05/18 mcg/actuation (8 g)] Review of Systems - Review of Systems Constitutional: absent: Fatigue, Fevers Eyes: absent: Vision Changes ENT: absent: Hearing Changes Respiratory: absent: SOB, Cough Cardiovascular: absent: Chest Pain Gastrointestinal: Abdominal Pain. absent: Constipation, Diarrhea, Nausea, Vomiting, Food Intolerance Genitourinary Female: absent: Dysuria, Frequency Musculoskeletal: absent: Arthralgias, Back Pain Skin: absent: Rash, Pruritis Psychiatric: absent: Anxiety, Depression, Suicidal Ideation Physical Exam Vital Signs Reviewed: Yes Vital Signs Temp Pulse Resp BP Pulse Ox 09/05/18 15:56 98.9 F 90 20 135/90 97 Temperature: Afebrile Blood Pressure: Normal Pulse: Regular Respiratory Rate: Normal Appearance: Positive for: Well-Appearing, Non-Toxic, Comfortable Pain Distress: Moderate Mental Status: Positive for: Alert and Oriented X 3 - Systems Exam Head: Present: Atraumatic, Normocephalic Pupils: Present: PERRL Extroacular Muscles: Present: EOMI Conjunctiva: Present: Normal Mouth: Present: Moist Mucous Membranes Neck: Present: Normal Range of Motion Respiratory/Chest: Present: Clear to Auscultation, Good Air Exchange. No: Respiratory Distress, Accessory Muscle Use Cardiovascular: Present: Regular Rate and Rhythm, Normal S1, S2. No: Murmurs Abdomen: Present: Tenderness (rt. flank), Normal Bowel Sounds. No: Distention, Peritoneal Signs, Rebound, Guarding, McBurney's Point Tender, Rovsing's Sign Present, Scars Genitourinary/Pelvic Exam: Present: Other (Pt. declined. ) Back: Present: Normal Inspection Upper Extremity: Present: Normal Inspection. No: Cyanosis, Edema Lower Extremity: Present: Normal Inspection. No: Edema Neurological: Present: GCS=15, CN II-XII Intact, Speech Normal Skin: Present: Warm, Dry, Normal Color. No: Rashes Psychiatric: Present: Alert, Oriented x 3, Normal Insight, Normal Concentration Medical Decision Making ED Course and Treatment: 09/05/18 16:19 -labs -CT abdomen and pelvis -Gall bladder sonogram -IVF/toradol/valium -Observe and reassess 09/05/18 20:07 -Urine hcg is negative -CT abdomen and pelvis show Status post cholecystectomy. No mass or biliary duct dilatation within the liver. No suspicious mass or lymphadenopathy abdomen and pelvis. Soft tissue prominence both adnexal regions of the pelvis for which correlation with ultrasound of the pelvis recommended. -Gall bladder sonogram Echogenic liver may be seen in setting of hepatic parenchymal disease or fatty infiltration. Cholecystectomy. -Labs show no acute findings -UA show +UTI, IV rocephine ordered -Pt. feels pain improved, pain returned, percocet ordered. -All labs and radiology results discussed with the patient and admitting physician Dr. Myles since the patient still in pain and will admit her intractable abdominal/flank pain. Pt. has now pelvic pain or vaginal discharge. -I discussed the case/labs/radiology results with Dr. Myles, agreed to admit the patient and he would follow up the transabdominal/pelvic sonogram as needed. - RAD Interpretation Radiology Orders: -CT abdomen and pelvis EXAM: CT Abdomen and Pelvis without IV contrast CLINICAL HISTORY: Right flank pain TECHNIQUE: Axial computed tomography images of the abdomen and pelvis without intravenous contrast. 1030.87 mGy-cm CONTRAST: Without COMPARISON: None provided. FINDINGS: LUNG BASES: The lung bases appear clear. No pleural effusions are seen. LIVER: Unremarkable. GALLBLADDER AND BILE DUCTS: Gallbladder surgically removed. PANCREAS: Unremarkable. SPLEEN: Unremarkable. ADRENAL GLANDS: Unremarkable. KIDNEYS, URETERS, AND BLADDER: The kidneys appear within normal limits. There is no hydronephrosis or hydroureter. No urinary calculi are seen. STOMACH AND BOWEL: Unremarkable appearance of the stomach and bowel. No evidence of bowel obstruction. No evidence suggesting enteritis or colitis. APPENDIX: No evidence of acute appendicitis on CT examination. PERITONEUM: No free fluid. No free air. LYMPH NODES: No lymphadenopathy is evident. REPRODUCTIVE: Uterus appears within normal limits. There is soft tissue fullness both adnexal regions. VASCULATURE: No evidence of abdominal aortic aneurysm. BONES: No aggressive appearing osseous lesion. No acute osseous pathology evident. IMPRESSION: Status post cholecystectomy. No mass or biliary duct dilatation within the li mena. No suspicious mass or lymphadenopathy abdomen and pelvis. Soft tissue prominence both adnexal regions of the pelvis for which correlation with ultrasound of the pelvis recommended. Electronically signed on September 05, 2018 7:54:01 PM EDT by: Saad Nunez M.D., Certified by [facility], Diagnostic Radiology -Gall bladder sonogram Date of service: 09/05/2018 HISTORY: rt. RUQ pain COMPARISON: CT abdomen and pelvis without contrast performed 06/16/17 TECHNIQUE: Sonographic evaluation of the right upper quadrant of the abdomen. FINDINGS: LIVER: Measures 13.5 cm in length. Echogenic liver may be seen in setting of hepatic parenchymal disease or fatty infiltration. No focal hepatic mass identified. The main portal vein appears patent with normal directional flow. No intrahepatic bile duct dilatation. GALLBLADDER: Cholecystectomy. COMMON BILE DUCT: Measures 4 mm. PANCREAS: Not well-visualized. RIGHT KIDNEY: Measures approximately 9.9 x 4.0 x 5.9 cm. No obstructing calculus or hydronephrosis identified. AORTA: Limited visualization appears grossly unremarkable. IVC: Limited visualization appears grossly unremarkable. OTHER FINDINGS: None . IMPRESSION: Echogenic liver may be seen in setting of hepatic parenchymal disease or fatty infiltration. Cholecystectomy. Dental Patient Coordinator: Radiologist - PA / FREIGHT RECEIVER / Resident Statement MD/DO has reviewed & agrees with the documentation as recorded. Disposition/Present on Arrival - Present on Arrival Any Indicators Present on Arrival: No History of DVT/PE: Yes History of Uncontrolled Diabetes: No Urinary Catheter: No History of Decub. Ulcer: No History Surgical Site Infection Following: None - Disposition Have Diagnosis and Disposition been Completed?: Yes Diagnosis: UTI (urinary tract infection), Fatty liver, Intractable abdominal pain Disposition: HOSPITALIZED Disposition Time: 18:17 Patient Plan: Admission, Observation Condition: STABLE
[2018-09-05] MEDS ORDERED: Barium Sulfate Susp 2.1% w/v, 2.0% w/w 450 mL Bottle PO ONE (16:35)
[2018-09-05 16:44] LABS: URINE BILIRUBIN NEGATIVE (NEGATIVE); URINE BLOOD NEGATIVE (NEGATIVE); URINE GLUCOSE (UA) NEGATIVE (NEGATIVE); URINE LEUKOCYTE ESTERASE TRACE Leu/uL (NEGATIVE); URINE PROTEIN TRACE mg/dL (<30 mg/dL)
[2018-09-05 16:46] LABS: URINE APPEARANCE SL CLOUDY (CLEAR); URINE COLOR YELLOW (YELLOW)
[2018-09-05 17:06] LABS: URINE BACTERIA MOD /hpf
[2018-09-05] MEDS ORDERED: cefTRIAXone 1 gm 1 GM/100 ML BAG IVPB STA (17:16)
[2018-09-05 17:28] LABS: BASO # 0.03 K/mm3 (0.0-2.0); BASO % 0.3 % (0.0-3.0); EOS # 0.2 (0.0-0.7); EOS % 1.7 % (1.5-5.0); HEMOGLOBIN 11.6 g/dL (12.0-16.0); LYMPH # 3.2 (1.2-3.4); MEAN CELL VOLUME 72.3 fl (80.0-105.0); MEAN CORPUSCULAR HEMOGLOBIN 21.7 pg (25.0-35.0); MEAN CORPUSCULAR HGB CONC 30.1 g/dl (31.0-37.0); MONO # 0.7 (0.1-0.6); MONO % 7.5 % (1.0-6.0); PLATELET COUNT 165 10^3/uL (120.0-450.0); RBC 5.34 10^6/uL (3.5-6.1); RED CELL DISTRIBUTION WIDTH 16.3 % (11.5-14.5); WHITE BLOOD COUNT 9.3 10^3/uL (4.5-11.0)
--- NOTE | 2018-09-05 17:37 | US ---
Date of service: 09/05/2018 HISTORY: rt. RUQ pain COMPARISON: CT abdomen and pelvis without contrast performed 06/16/17 TECHNIQUE: Sonographic evaluation of the right upper quadrant of the abdomen. FINDINGS: LIVER: Measures 13.5 cm in length. Echogenic liver may be seen in setting of hepatic parenchymal disease or fatty infiltration. No focal hepatic mass identified. The main portal vein appears patent with normal directional flow. No intrahepatic bile duct dilatation. GALLBLADDER: Cholecystectomy. COMMON BILE DUCT: Measures 4 mm. PANCREAS: Not well-visualized. RIGHT KIDNEY: Measures approximately 9.9 x 4.0 x 5.9 cm. No obstructing calculus or hydronephrosis identified. AORTA: Limited visualization appears grossly unremarkable. IVC: Limited visualization appears grossly unremarkable. OTHER FINDINGS: None . IMPRESSION: Echogenic liver may be seen in setting of hepatic parenchymal disease or fatty infiltration. Cholecystectomy.
[2018-09-05 17:39] LABS: ALB/GLOB RATIO 1.4 (1.1-1.8); ALBUMIN 4.2 g/dL (3.0-4.8); ALT/SGPT 12 U/L (7-56); AST/SGOT 19 U/L (14-36); BLOOD UREA NITROGEN 7 mg/dL (7-21); GFR NON-AFRICAN AMERICAN > 60; LIPASE 41 U/L (23-300)
[2018-09-05] MEDS ORDERED: Oxycodone/Acetaminophen 5/325 mg Tab PO STA (19:38)
[2018-09-05 22:54] VITALS: RESP 18
--- NOTE | 2018-09-05 23:01 | CP.PCM.PCO ---
<Eliseo Quiñones - Last Filed: 09/05/18 22:59> Addendum Addendum: Resident was not made aware by ED staff. Made aware by nursing staff. Will see patient on floor <Aleksandra Myles - Last Filed: 09/06/18 04:56> Attending/Attestation - Attestation I have personally seen and examined this patient.: Yes I have fully participated in the care of the patient.: Yes I have reviewed all pertinent clinical information: Yes
--- NOTE | 2018-09-05 23:31 | CP.PCM.HP ---
<Karla Colon - Last Filed: 09/05/18 23:57> History of Present Illness - History of Present Illness History of Present Illness: Karla Colon DO, PGY-2: HPI for Dr. Myles 37 year old female with a past medical history of asthma, anemia, hypertension, and dyslipidemia who presented to the ED after failing outpatient therapy for UTI. She re-presented today after going to the ED on Monday and was diagnosed with a UTI. Urine cultures suggest contamination. Today, patient complained of inability to tolerate PO intake, nausea, and right flank pain that radiated to the groin that prevented her from going to work. She denies dysuria, fever, chills, but admits to pressure sensation in the lower abdomen. She also reports decreased appetite and nausea, butno vomiting. She reports the flank pain did not respond to the Percocet-"that just made her itchy, and the Toradol, made her belly hurt." Otherwise, she denies hematuria, dysuria, but admits to lower abdominal pain. The pain is severe, intermittent, 7/10 in severity, radiating from right flank to right groin, not worsened with movement or positonally. She denies any vaginal changes. FDLMP was August 23. Periods are regular and last 9 days. She reports some time having pain with intimacy. A complete 12 point ROS is negative except as mentioned above. 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; denies alcohol, tobacco, or illicit drug use Present on Admission - Present on Admission Any Indicators Present on Admission: No Review of Systems - Review of Systems All systems: reviewed and no additional remarkable complaints except (as per HPI) Past Patient History - Infectious Disease Hx of Infectious Diseases: None - Past Social History Smoking Status: Never Smoked - CARDIAC Hx Hypercholesterolemia: Yes Hx Hypertension: Yes - PULMONARY Hx Respiratory Disorders: Yes Hx Asthma: Yes - NEUROLOGICAL Hx Neurological Disorder: No - HEENT Hx HEENT Problems: No - RENAL Hx Chronic Kidney Disease: No - ENDOCRINE/METABOLIC Hx Endocrine Disorders: No - HEMATOLOGICAL/ONCOLOGICAL Hx Blood Transfusions: No - INTEGUMENTARY Hx Dermatological Problems: No - MUSCULOSKELETAL/RHEUMATOLOGICAL Hx Falls: Yes - GASTROINTESTINAL Hx Gastroesophageal Reflux: Yes - GENITOURINARY/GYNECOLOGICAL Hx Genitourinary Disorders: No Other/Comment: Fibroids - PSYCHIATRIC Hx Emotional Abuse: No Hx Physical Abuse: No Hx Substance Use: No - SURGICAL HISTORY Hx Section: Yes (x2) Hx Cholecystectomy: Yes - ANESTHESIA Hx Anesthesia: Yes Hx Anesthesia Reactions: No Hx Malignant Hyperthermia: No Meds Allergies/Adverse Reactions: Allergies Allergy/AdvReac Type Severity Reaction Status Date / Time iodine Allergy Severe ANAPHYLAXIS Verified 09/05/18 15:53 latex Allergy ITCHING Verified 09/05/18 15:53 Physical Exam - Constitutional Appears: Non-toxic, No Acute Distress - Head Exam Head Exam: ATRAUMATIC, NORMOCEPHALIC - Eye Exam Eye Exam: EOMI, Normal appearance - ENT Exam ENT Exam: Mucous Membranes Moist, Normal Oropharynx - Neck Exam Neck exam: Positive for: Normal Inspection - Respiratory Exam Respiratory Exam: Clear to Auscultation Bilateral, NORMAL BREATHING PATTERN. absent: Accessory Muscle Use - Cardiovascular Exam Cardiovascular Exam: RRR, +S1, +S2 - GI/Abdominal Exam GI & Abdominal Exam: Normal Bowel Sounds, Soft - Extremities Exam Extremities exam: Positive for: normal inspection. Negative for: calf tenderness - Back Exam Back exam: NORMAL INSPECTION. absent: CVA tenderness (L), CVA tenderness (R) - Neurological Exam Neurological exam: Alert, CN II-XII Intact, Oriented x3 - Psychiatric Exam Psychiatric exam: Normal Affect, Normal Mood - Skin Skin Exam: Dry, Intact, Normal Color, Warm Results - Vital Signs Recent Vital Signs: Last Vital Signs Temp 98 F 09/05/18 22:15 Pulse 67 09/05/18 22:15 Resp 18 09/05/18 22:35 BP 122/76 09/05/18 22:15 Pulse Ox 96 09/05/18 22:15 - Labs Result Diagrams: 09/05/18 17:10 09/05/18 17:10 Labs: Laboratory Results - last 24 hr 09/05/18 09/05/18 09/05/18 16:30 17:10 17:10 WBC 9.3 RBC 5.34 Hgb 11.6 L Hct 38.6 MCV 72.3 L MCH 21.7 L MCHC 30.1 L RDW 16.3 H Plt Count 165 Neut % (Auto) 55.5 Lymph % (Auto) 35.0 [place] % (Auto) 7.5 H Eos % (Auto) 1.7 Baso % (Auto) 0.3 Lymph # (Auto) 3.2 [place] # (Auto) 0.7 H Eos # (Auto) 0.2 Baso # (Auto) 0.03 Absolute Neuts (auto) 5.13 Sodium 139 Potassium 3.8 Chloride 105 Carbon Dioxide 27 Anion Gap 11 BUN 7 Creatinine 0.7 Est GFR ( Amer) > 60 Est GFR (Non-Af Amer) > 60 Random Glucose 88 Calcium 9.0 Total Bilirubin 0.3 AST 19 ALT 12 Alkaline Phosphatase 66 Total Protein 7.2 Albumin 4.2 Globulin 3.0 Albumin/Globulin Ratio 1.4 Lipase 41 Urine Color Yellow Urine Appearance Sl cloudy Urine pH 6.0 Ur Specific Bath 1.015 Urine Protein Trace H Urine Glucose (UA) Negative Urine Ketones Negative Urine Blood Negative Urine Nitrate Positive H Urine Bilirubin Negative Urine Urobilinogen 1.0 H Ur Leukocyte Esterase Trace H Urine RBC None Urine WBC 10 - 15 H Ur Epithelial Cells 6 - 8 H Urine Bacteria Mod Assessment & Plan - Assessment and Plan (Free Text) Assessment: 37 year old female with a past medical history of asthma, hypertension, anemia, and dyslipidemia who [place] [facility] right [place] pain that radiated to the groin in the setting of failing outpatient treatment for suspected UTI. Plan: 1) UTI with possible ascending infection given flank pain - Urine culture and sensitivity - Review of UA shows nitrite positive, but patient is on phenazopyridine; urine does contain greater than 10 leukocytes per microliter and urine bacteria - NS 100 mls/hr - CT of abdomen and pelvis shows no evidence of pyelonephritis or nephrolithiasis; did show prominence of adnexal organs - Rocephin 1 gram daily - Analgesia with Morphine 2 mg q4h PRN - Would check patient's DISTRIBUTION SUPERINTENDENT given some of her statements may appear to drug seeking in nature (I do not have access to the DISTRIBUTION SUPERINTENDENT database however) - Zofran 4 mg q6h PRN for nausea 2) Anemia, microcytic - Ferrous Sulfate 325 TID 3) Constipation - Miralax 17 gram BID 4) DVT/GI prophylaxis - Lovenox 40 mg - Not indicated at this time Case was reviewed and discussed with Dr. Myles <Aleksandra Myles - Last Filed: 09/06/18 04:55> Results - Vital Signs Recent Vital Signs: Last Vital Signs Temp 98 F 09/05/18 22:15 Pulse 67 09/05/18 22:15 Resp 18 09/05/18 22:35 BP 122/76 09/05/18 22:15 Pulse Ox 96 09/05/18 22:15 - Labs Result Diagrams: 09/05/18 17:10 09/05/18 17:10 Labs: Laboratory Results - last 24 hr 09/05/18 09/05/18 09/05/18 16:30 16:30 17:10 WBC 9.3 RBC 5.34 Hgb 11.6 L Hct 38.6 MCV 72.3 L MCH 21.7 L MCHC 30.1 L RDW 16.3 H Plt Count 165 Neut % (Auto) 55.5 Lymph % (Auto) 35.0 [place] % (Auto) 7.5 H Eos % (Auto) 1.7 Baso % (Auto) 0.3 Lymph # (Auto) 3.2 [place] # (Auto) 0.7 H Eos # (Auto) 0.2 Baso # (Auto) 0.03 Absolute Neuts (auto) 5.13 Sodium Potassium Chloride Carbon Dioxide Anion Gap BUN Creatinine Est GFR ( Amer) Est GFR (Non-Af Amer) Random Glucose Calcium Total Bilirubin AST ALT Alkaline Phosphatase Total Protein Albumin Globulin Albumin/Globulin Ratio Lipase Urine Color Yellow Urine Appearance Sl cloudy Urine pH 6.0 Ur Specific Bath 1.015 Urine Protein Trace H Urine Glucose (UA) Negative Urine Ketones Negative Urine Blood Negative Urine Nitrate Positive H Urine Bilirubin Negative Urine Urobilinogen 1.0 H Ur Leukocyte Esterase Trace H Urine RBC None Urine WBC 10 - 15 H Ur Epithelial Cells 6 - 8 H Urine Bacteria Mod Urine HCG, Qual Negative 09/05/18 17:10 WBC RBC Hgb Hct MCV MCH MCHC RDW Plt Count Neut % (Auto) Lymph % (Auto) [place] % (Auto) Eos % (Auto) Baso % (Auto) Lymph # (Auto) [place] # (Auto) Eos # (Auto) Baso # (Auto) Absolute Neuts (auto) Sodium 139 Potassium 3.8 Chloride 105 Carbon Dioxide 27 Anion Gap 11 BUN 7 Creatinine 0.7 Est GFR ( Amer) > 60 Est GFR (Non-Af Amer) > 60 Random Glucose 88 Calcium 9.0 Total Bilirubin 0.3 AST 19 ALT 12 Alkaline Phosphatase 66 Total Protein 7.2 Albumin 4.2 Globulin 3.0 Albumin/Globulin Ratio 1.4 Lipase 41 Urine Color Urine Appearance Urine pH Ur Specific [place] Urine Protein Urine Glucose (UA) Urine Ketones Urine Blood Urine Nitrate Urine Bilirubin Urine Urobilinogen Ur Leukocyte Esterase Urine RBC Urine WBC Ur Epithelial Cells Urine Bacteria Urine HCG, Qual Attending/Attestation - Attestation I have personally seen and examined this patient.: Yes I have fully participated in the care of the patient.: Yes I have reviewed all pertinent clinical information: Yes Notes (Text): 09/06/18 04:47 Patient was seen when she was in room # 885-02. Medical record was reviewed. Agree with history, physical examination, assessment and plan. This 37 year old obese woman is here with nausea, right flank pain, has PMH of asthma,HTN, HLD, vertigo, 10 lb weight loss in one month,loss of appetite, recent UTI for which got antibiotic, pyridium,allergy to iodine ,CT scan dye(skin rash),sinusitis, chest pain x 2 , anemia,ovarian cyst, uterine fibroid, spleenomegaly,headaches-migraine, alcohol use occasionally ,GERD,ble eding ulcer, history of endoscopy, cholecystectomy, x2,Family history of DM, HTN, ovarian cancer, breast cancer, colon cancer.
[2018-09-06] MEDS: Morphine 2 mg/ml ISec IVP PRN ×2 (01:09→06:58)
[2018-09-06] MEDS: Sodium Chloride 0.9% 1,000 ML IV SCH ×2 (01:10→11:46)
[2018-09-06 07:49] VITALS: BP 123/81; PULSE 70; TEMP 97.3; O2SAT 98
[2018-09-06 09:29] LABS: BASO # 0.02 K/mm3 (0.0-2.0); BASO % 0.3 % (0.0-3.0); EOS # 0.2 (0.0-0.7); EOS % 2.1 % (1.5-5.0); HEMOGLOBIN 10.8 g/dL (12.0-16.0); LYMPH % 38.9 % (22.0-35.0); MEAN CELL VOLUME 72.9 fl (80.0-105.0); MEAN CORPUSCULAR HEMOGLOBIN 21.7 pg (25.0-35.0); MEAN CORPUSCULAR HGB CONC 29.8 g/dl (31.0-37.0); MONO # 0.5 (0.1-0.6); MONO % 6.2 % (1.0-6.0); PLATELET COUNT 177 10^3/uL (120.0-450.0); RBC 4.98 10^6/uL (3.5-6.1); RED CELL DISTRIBUTION WIDTH 16.3 % (11.5-14.5); WHITE BLOOD COUNT 7.7 10^3/uL (4.5-11.0)
[2018-09-06] MEDS ORDERED: Enoxaparin 40 mg Syringe SC SCH (10:00)
[2018-09-06] MEDS ORDERED: cefTRIAXone 1 gm 1 GM/100 ML BAG IVPB SCH (10:00)
[2018-09-06 10:02] LABS: ALB/GLOB RATIO 1.4 (1.1-1.8); ALBUMIN 3.7 g/dL (3.0-4.8); ALT/SGPT 17 U/L (7-56); AST/SGOT 18 U/L (14-36); BLOOD UREA NITROGEN 7 mg/dL (7-21); CALCIUM 8.4 mg/dL (8.4-10.5); GFR NON-AFRICAN AMERICAN > 60
--- NOTE | 2018-09-06 10:02 | CT ---
Date of service: 09/05/2018 PROCEDURE: CT Abdomen and Pelvis without intravenous contrast HISTORY: rt. flank pain COMPARISON: None. TECHNIQUE: Without contrast.. Contrast dose: Radiation dose: Total exam DLP = 1030.87 mGy-cm. This CT exam was performed using one or more of the following dose reduction techniques: Automated exposure control, adjustment of the mA and/or kV according to patient size, and/or use of iterative reconstruction technique. FINDINGS: LOWER THORAX: Unremarkable. LIVER: Unremarkable. No gross lesion or ductal dilatation. GALLBLADDER AND BILE DUCTS: Gallbladder removed PANCREAS: Unremarkable. No gross lesion or ductal dilatation. SPLEEN: Unremarkable. ADRENALS: Unremarkable. No mass. KIDNEYS AND URETERS: Unremarkable. No hydronephrosis. No solid mass. VASCULATURE: Unremarkable. No aortic aneurysm. No aortic atherosclerotic calcification or mural plaque present. BOWEL: Unremarkable. No obstruction. No gross mural thickening. APPENDIX: Unremarkable. Normal appendix. PERITONEUM: Unremarkable. No free fluid. No free air. LYMPH NODES: Unremarkable. No enlarged lymph nodes. BLADDER: Unremarkable. REPRODUCTIVE: Unremarkable. BONES: No acute fracture. OTHER FINDINGS: The report concurs with the preliminary [facility] report IMPRESSION: Unremarkable non contrast enhanced CT of the abdomen and pelvis.
--- NOTE | 2018-09-06 14:05 | CP.PCM.PN ---
Subjective - Date & Time of Evaluation Date of Evaluation: 09/06/18 Time of Evaluation: 13:51 - Subjective Subjective: Huy Johnson, PGY-1, Internal Medicine Discharge Summary for Dr. Nguyen 37 year old female with a past medical history of asthma, anemia, hypertension, and dyslipidemia presented after continuing to have right lower back pain after treated for UTI outpatient. She had gone to the emergency department Monday and was diagnosed with a UTI. Urine culture suggested contamination. Upon presentation, patient complained of inability to tolerate PO intake, nausea, and right flank pain that radiated to the groin that prevented her from going to work. She did not have any episodes of vomiting. She reports taking percocet for the flank pain in the ER, but reported that this did not help the pain. In addition, toradol gave her abdominal pain in the ER. She denied any dysuria, hematuria the day of presentation. Upon admission, urinanalysis was performed which was positive for nitrate, trace leukocyte esterase, and had 10-15 WBC. Urine epithelial cells were 6-8, likely revealing contamination. Abdominal CT was performed which showed no evidence of pyelonephritis or nephrolithiasis. Abdominal Ultrasound Patient was initially started on morphine which was changed to ibuprofen this morning. Patient was started on zofran for nausea. Patient was found to be stable and ready for discharge. Patient was told to follow up with PCP within 3-5 days. Patient was told to take all home medications as prescribed and complete keflex regimen as prescribed in the emergency department. Patient was told to take ibuprofen over the counter as needed for back pain. Patient was found to have anemia on admission and was told to follow up outpatient with PCP for evaluation of anemia. Patient was told to return to the emergency department if she had any new or concerning symptoms. This is a brief summary of the events that occurred during this hospital visit. Please refer to the hospital documentation for more info. Discharge diagnoses UTI Microcytic anemia Constipation Objective - Vital Signs/Intake and Output Vital Signs (last 24 hours): Temp Pulse Resp BP Pulse Ox 97.3 F L 70 18 123/81 98 09/06/18 06:00 09/06/18 06:00 09/06/18 06:00 09/06/18 06:00 09/06/18 06:00 Intake and Output: 09/06/18 09/06/18 06:59 18:59 Intake Total 60 Balance 60 - Medications Medications: Current Medications Enoxaparin Sodium (Lovenox) 40 mg SC DAILY ERIC; Protocol Last Admin: 09/06/18 10:00 Dose: 40 mg Ferrous Sulfate (Feosol) 324 mg PO TID [facility] Last Admin: 09/06/18 09:17 Dose: 324 mg Ceftriaxone Sodium (Rocephin 1 Gram Ivpb) 1 gm in 100 mls @ 100 mls/hr IVPB DAILY ERIC; Protocol Stop: 09/07/18 10:59 Last Admin: 09/06/18 09:17 Dose: 100 mls/hr Sodium Chloride (Sodium Chloride 0.9%) 1,000 mls @ 100 mls/hr IV .Q10H ERIC Last Admin: 09/06/18 11:46 Dose: 100 mls/hr Ibuprofen (Motrin Tab) 600 mg PO Q6H PRN PRN Reason: Pain, moderate (4-7) Last Admin: 09/06/18 11:43 Dose: 600 mg Ondansetron HCl (Zofran Inj) 4 mg IVP Q6H PRN PRN Reason: Nausea/Vomiting - Labs Labs: 09/06/18 09:10 09/06/18 09:10
--- NOTE | 2018-09-06 14:11 | CP.PCM.DIS ---
<RanjithtapanHuy - Last Filed: 09/06/18 14:09> Provider - Provider Date of Admission: 09/05/18 20:09 Attending physician: Uziel Nguyen MD Primary care physician: NO PRIMARY CARE PROVIDER Time Spent in preparation of Discharge (in minutes): 60 Hospital Course - Lab Results Lab Results: Most Recent Lab Values WBC 7.7 10^3/uL (4.5-11.0) 09/06/18 09:10 RBC 4.98 10^6/uL (3.5-6.1) 09/06/18 09:10 Hgb 10.8 g/dL (12.0-16.0) L 09/06/18 09:10 Hct 36.3 % (36.0-48.0) 09/06/18 09:10 MCV 72.9 fl (80.0-105.0) L 09/06/18 09:10 MCH 21.7 pg (25.0-35.0) L 09/06/18 09:10 MCHC 29.8 g/dl (31.0-37.0) L 09/06/18 09:10 RDW 16.3 % (11.5-14.5) H 09/06/18 09:10 Plt Count 177 10^3/uL (120.0-450.0) 09/06/18 09:10 Neut % (Auto) 52.5 % (50.0-68.0) 09/06/18 09:10 Lymph % (Auto) 38.9 % (22.0-35.0) H 09/06/18 09:10 [place] % (Auto) 6.2 % (1.0-6.0) H 09/06/18 09:10 Eos % (Auto) 2.1 % (1.5-5.0) 09/06/18 09:10 Baso % (Auto) 0.3 % (0.0-3.0) 09/06/18 09:10 Lymph # (Auto) 3.0 (1.2-3.4) 09/06/18 09:10 [place] # (Auto) 0.5 (0.1-0.6) 09/06/18 09:10 Eos # (Auto) 0.2 (0.0-0.7) 09/06/18 09:10 Baso # (Auto) 0.02 K/mm3 (0.0-2.0) 09/06/18 09:10 Absolute Neuts (auto) 4.04 (1.4-6.5) 09/06/18 09:10 Sodium 139 mmol/L (132-148) 09/06/18 09:10 Potassium 4.0 mmol/L (3.6-5.0) 09/06/18 09:10 Chloride 107 mmol/L (98-107) 09/06/18 09:10 Carbon Dioxide 27 mmol/L (21-33) 09/06/18 09:10 Anion Gap 9 (10-20) L 09/06/18 09:10 BUN 7 mg/dL (7-21) 09/06/18 09:10 Creatinine 0.7 mg/dl (0.7-1.2) 09/06/18 09:10 Est GFR ( Amer) > 60 09/06/18 09:10 Est GFR (Non-Af Amer) > 60 09/06/18 09:10 Random Glucose 94 mg/dL (70-110) 09/06/18 09:10 Calcium 8.4 mg/dL (8.4-10.5) 09/06/18 09:10 Total Bilirubin 0.4 mg/dL (0.2-1.3) 09/06/18 09:10 AST 18 U/L (14-36) 09/06/18 09:10 ALT 17 U/L (7-56) 09/06/18 09:10 Alkaline Phosphatase 62 U/L (38-126) 09/06/18 09:10 Total Protein 6.3 g/dL (5.8-8.3) 09/06/18 09:10 Albumin 3.7 g/dL (3.0-4.8) 09/06/18 09:10 Globulin 2.6 gm/dL 09/06/18 09:10 Albumin/Globulin Ratio 1.4 (1.1-1.8) 09/06/18 09:10 Lipase 41 U/L (23-300) 09/05/18 17:10 Urine Color Yellow (YELLOW) 09/05/18 16:30 Urine Appearance Sl cloudy (CLEAR) 09/05/18 16:30 Urine pH 6.0 (4.7-8.0) 09/05/18 16:30 Ur Specific Martin 1.015 (1.005-1.035) 09/05/18 16:30 Urine Protein Trace mg/dL (<30 mg/dL) H 09/05/18 16:30 Urine Glucose (UA) Negative mg/dL (NEGATIVE) 09/05/18 16:30 Urine Ketones Negative mg/dL (NEGATIVE) 09/05/18 16:30 Urine Blood Negative (NEGATIVE) 09/05/18 16:30 Urine Nitrate Positive (NEGATIVE) H 09/05/18 16:30 Urine Bilirubin Negative (NEGATIVE) 09/05/18 16:30 Urine Urobilinogen 1.0 E.U./dL (<1 E.U./dL) H 09/05/18 16:30 Ur Leukocyte Esterase Trace Veronica/uL (NEGATIVE) H 09/05/18 16:30 Urine RBC None /hpf (0-2) 09/05/18 16:30 Urine WBC 10 - 15 /hpf (0-6) H 09/05/18 16:30 Ur Epithelial Cells 6 - 8 /hpf (0-5) H 09/05/18 16:30 Urine Bacteria Mod /hpf (NONE) 09/05/18 16:30 Urine HCG, Qual Negative (NEGATIVE) 09/05/18 16:30 - Hospital Course Hospital Course: Huy Johnson, PGY-1, Internal Medicine Discharge Summary for Dr. Nguyen 37 year old female with a past medical history of asthma, anemia, hypertension, and dyslipidemia presented after continuing to have right lower back pain after treated for UTI outpatient. She had gone to the emergency department Monday and was diagnosed with a UTI. Urine culture suggested contamination. Upon presentation, patient complained of inability to tolerate PO intake, nausea, and right flank pain that radiated to the groin that prevented her from going to work. She did not have any episodes of vomiting. She reports taking percocet for the flank pain in the ER, but reported that this did not help the pain. In addition, toradol gave her abdominal pain in the ER. She denied any dysuria, hematuria the day of presentation. Upon admission, urinanalysis was performed which was positive for nitrate, trace leukocyte esterase, and had 10-15 WBC. Urine epithelial cells were 6-8, likely revealing contamination. Abdominal CT was performed which showed no evidence of pyelonephritis or nephrolithiasis. Abdominal Ultrasound Patient was initially started on morphine which was changed to ibuprofen this morning. Patient was s tarted on zofran for nausea. Patient was found to be stable and ready for discharge. Patient was told to follow up with PCP within 3-5 days. Patient was told to take all home medications as prescribed and complete keflex regimen as prescribed in the emergency department. Patient was told to take ibuprofen over the counter as needed for back pain. Patient was found to have anemia on admission and was told to follow up outpatient with PCP for evaluation of anemia. Patient was told to return to the emergency department if she had any new or concerning symptoms. This is a brief summary of the events that occurred during this hospital visit. Please refer to the hospital documentation for more info. Discharge diagnoses UTI Microcytic anemia Constipation - Date & Time of H&P Date of H&P: 09/05/18 Time of H&P: 23:24 Discharge Exam - Head Exam Head Exam: ATRAUMATIC, NORMOCEPHALIC - Eye Exam Eye Exam: EOMI Pupil Exam: NORMAL ACCOMODATION - ENT Exam ENT Exam: Mucous Membranes Moist - Respiratory Exam Respiratory Exam: Clear to PA & Lateral, NORMAL BREATHING PATTERN - Cardiovascular Exam Cardiovascular Exam: REGULAR RHYTHM, RRR, +S1. absent: Clicks, Gallop, JVD - GI/Abdominal Exam GI & Abdominal Exam: Normal Bowel Sounds, Soft, Tenderness (RLQ). absent: Distended, Firm, Guarding - Extremities Exam Extremities exam: full ROM, normal capillary refill, normal inspection - Back Exam Back exam: CVA tenderness (R) - Neurological Exam Neurological exam: Alert, CN II-XII Intact, Oriented x3 - Psychiatric Exam Psychiatric exam: Normal Affect, Normal Mood - Skin Skin Exam: Dry, Intact, Normal Color Discharge Plan - Follow Up Plan Condition: STABLE Disposition: HOME/ ROUTINE Instructions: Acute Abdomen (Belly Pain), Adult (DC), Nausea and Vomiting, Adult (DC), Stomach Ache and Stomach Upset, Urinary Tract Infection in Women (DC) Additional Instructions: Please follow up with primary care doctor within 3-5 days. Please take all home medications as prescribed. Please complete your keflex prescribed. Please take ibuprofen over the counter as needed for pain. You were anemia on this admission. Please obtain outpatient follow up evaluation of anemia. Please return to the emergency department if you have any new or concerning symptoms. Referrals: Altagracia Malagon MD [Medical Doctor] - <Uziel Nguyen - Last Filed: 09/06/18 14:34> Provider - Provider Date of Admission: 09/05/18 20:09 Attending physician: Uziel Nguyen MD Primary care physician: NO PRIMARY CARE PROVIDER Hospital Course - Lab Results Lab Results: Most Recent Lab Values WBC 7.7 10^3/uL (4.5-11.0) 09/06/18 09:10 RBC 4.98 10^6/uL (3.5-6.1) 09/06/18 09:10 Hgb 10.8 g/dL (12.0-16.0) L 09/06/18 09:10 Hct 36.3 % (36.0-48.0) 09/06/18 09:10 MCV 72.9 fl (80.0-105.0) L 09/06/18 09:10 MCH 21.7 pg (25.0-35.0) L 09/06/18 09:10 MCHC 29.8 g/dl (31.0-37.0) L 09/06/18 09:10 RDW 16.3 % (11.5-14.5) H 09/06/18 09:10 Plt Count 177 10^3/uL (120.0-450.0) 09/06/18 09:10 Neut % (Auto) 52.5 % (50.0-68.0) 09/06/18 09:10 Lymph % (Auto) 38.9 % (22.0-35.0) H 09/06/18 09:10 [place] % (Auto) 6.2 % (1.0-6.0) H 09/06/18 09:10 Eos % (Auto) 2.1 % (1.5-5.0) 09/06/18 09:10 Baso % (Auto) 0.3 % (0.0-3.0) 09/06/18 09:10 Lymph # (Auto) 3.0 (1.2-3.4) 09/06/18 09:10 [place] # (Auto) 0.5 (0.1-0.6) 09/06/18 09:10 Eos # (Auto) 0.2 (0.0-0.7) 09/06/18 09:10 Baso # (Auto) 0.02 K/mm3 (0.0-2.0) 09/06/18 09:10 Absolute Neuts (auto) 4.04 (1.4-6.5) 09/06/18 09:10 Sodium 139 mmol/L (132-148) 09/06/18 09:10 Potassium 4.0 mmol/L (3.6-5.0) 09/06/18 09:10 Chloride 107 mmol/L (98-107) 09/06/18 09:10 Carbon Dioxide 27 mmol/L (21-33) 09/06/18 09:10 Anion Gap 9 (10-20) L 09/06/18 09:10 BUN 7 mg/dL (7-21) 09/06/18 09:10 Creatinine 0.7 mg/dl (0.7-1.2) 09/06/18 09:10 Est GFR ( Amer) > 60 09/06/18 09:10 Est GFR (Non-Af Amer) > 60 09/06/18 09:10 Random Glucose 94 mg/dL (70-110) 09/06/18 09:10 Calcium 8.4 mg/dL (8.4-10.5) 09/06/18 09:10 Total Bilirubin 0.4 mg/dL (0.2-1.3) 09/06/18 09:10 AST 18 U/L (14-36) 09/06/18 09:10 ALT 17 U/L (7-56) 09/06/18 09:10 Alkaline Phosphatase 62 U/L (38-126) 09/06/18 09:10 Total Protein 6.3 g/dL (5.8-8.3) 09/06/18 09:10 Albumin 3.7 g/dL (3.0-4.8) 09/06/18 09:10 Globulin 2.6 gm/dL 09/06/18 09:10 Albumin/Globulin Ratio 1.4 (1.1-1.8) 09/06/18 09:10 Lipase 41 U/L (23-300) 09/05/18 17:10 Urine Color Yellow (YELLOW) 09/05/18 16:30 Urine Appearance Sl cloudy (CLEAR) 09/05/18 16:30 Urine pH 6.0 (4.7-8.0) 09/05/18 16:30 Ur Specific [place] 1.015 (1.005-1.035) 09/05/18 16:30 Urine Protein Trace mg/dL (<30 mg/dL) H 09/05/18 16:30 Urine Glucose (UA) Negative mg/dL (NEGATIVE) 09/05/18 16:30 Urine Ketones Negative mg/dL (NEGATIVE) 09/05/18 16:30 Urine Blood Negative (NEGATIVE) 09/05/18 16:30 Urine Nitrate Positive (NEGATIVE) H 09/05/18 16:30 Urine Bilirubin Negative (NEGATIVE) 09/05/18 16:30 Urine Urobilinogen 1.0 E.U./dL (<1 E.U./dL) H 09/05/18 16:30 Ur Leukocyte Esterase Trace Veronica/uL (NEGATIVE) H 09/05/18 16:30 Urine RBC None /hpf (0-2) 09/05/18 16:30 Urine WBC 10 - 15 /hpf (0-6) H 09/05/18 16:30 Ur Epithelial Cells 6 - 8 /hpf (0-5) H 09/05/18 16:30 Urine Bacteria Mod /hpf (NONE) 09/05/18 16:30 Urine HCG, Qual Negative (NEGATIVE) 09/05/18 16:30 Attending/Attestation - Attestation I have personally seen and examined this patient.: Yes I have fully participated in the care of the patient.: Yes I have reviewed all pertinent clinical information, including history, physical exam and plan: Yes Notes (Text): 09/06/18 14:29 37 year old female with past medical history of asthma, anemia, hypertension and obesity who presented with complaint of right flank pain. She was recently treated with outpatient antibiotics for UTI. UCx at the time was suggestive of contamination. On presentation she is afebrile without leukocytosis. UA noted as above. UCx is pending. She is tolerating diet. CT abd/pelvis is negative for acute findings and abdominal ultrasound showed hepatic parenchymal disease vs fatty infiltrate. She was counselled on diet, weight loss and exercise. She has chronic microcytic anemia. 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 Patient is discharged home to follow up with pmd. Continue with antibiotics for UTI. Uziel Nguyen MD Hospitalist.
== END 2018-09-06 16:14 | disposition home or self-care (01) ==
LOC: ED 15:43 → ERH 20:09 → 5RNO 22:30
PROVIDERS: ADMIT Hospitalist; ATTEND Internal Medicine
DX: N39.0 Urinary tract infection, site not specified (principal); K59.00 Constipation, unspecified; I10 Essential (primary) hypertension; D50.9 Iron deficiency anemia, unspecified; E78.5 Hyperlipidemia, unspecified; J45.909 Unspecified asthma, uncomplicated; K76.0 Fatty (change of) liver, not elsewhere classified; Z90.49 Acquired absence of other specified parts of digestive tract; Z98.891 History of uterine scar from previous surgery
CPT/HCPCS: 36415; 74176; 76705; 80053; 81001; 81025; 83690; 84703; 85025; 87086; 96361; 96365; 96366; 96372; 96375; 96376; 99285; G0378; J0696; J1650; J1885; J2270; J2405; J7030